=== PATIENT | male | born 1935 | race Caucasian/White ===

== ENCOUNTER 2021-01-31 11:21 | Emergency (ER) | payer MEDICARE, SELFPAY ==
[2021-01-31] VITALS (7 sets, daily range): BP systolic 113–139; BP diastolic 65–85; PULSE 55–80; RESP 12–19; TEMP 36.4–36.7; O2SAT 95–98
--- NOTE | ~2021-01-31 | CT_ITS ---
EXAMINATION: CT brain wo con EXAM DATE: 01/31/2021 12:03 INDICATION: Slurred speech, dysphagia, confusion. TECHNIQUE: Spiral CT of the head was performed without contrast. Axial, coronal and sagittal images were reviewed. The dose-length product (DLP) for this examination was 605.33 mGy-cm. The exposure w as tailored according to patient size, and iterative reconstruction (ASIR) was used as additional dos e reduction technique. There is no prior study for comparison. FINDINGS: There is hyperdense right MCA trifurcation (axial image 13). There is mild microangiopathy and cerebral atrophy. There is no acute intraparenchymal hemorrhage. No evidence of intraparenchymal brain mass lesion. Gibson-white differentiation preserved. There is no mass effect or midline shift. The ventricles are normal in size. There are no extra-axial collections. There are no acute calvari al fractures. Patient has had bilateral ocular lens surgery. Soft tissue is unremarkable. Some opac ity, layering debris within the right maxillary sinus. IMPRESSION: 1. Hyperdense right MCA trifurcation, possibly acutely thrombosed. 2. Mild senescent changes. 3. Some right maxillary sinus opacity. I discussed right MCA finding with Lauren Myers MD at 01/31/2021 12:10 CDT. Reviewed, dictated and finalized at location B.
--- NOTE | ~2021-01-31 | CT_ITS ---
EXAMINATION: CTA brain carotid EXAM DATE: 01/31/2021 13:29 INDICATION: Abnormal ct, hyperdense right MCA trifurcation. Speech impairment. Post TPA. TECHNIQUE: Spiral CTA of the carotid arteries was performed with intravenous injection 100 cc of Omni paque 350. Axial, coronal, sagittal reformatted images reviewed. Additional reformatted images creat ed on dedicated 3-D workstation. NASCET comparable standard used to assess the degree of arterial st enosis. Spiral CT angiogram cerebral arteries performed with the same intravenous injection of contr ast. Source images of the brain CTA transferred to dedicated workstation for 3-D rotational image cre ation. Coronal, sagittal maximum intensity pixel images also reviewed. The dose-length product (DLP ) for this examination was 985.35 mGy-cm. The exposure was tailored according to patient size, and iterative reconstruction (ASIR) was used as additional dose reduction technique. Correlation is made to noncontrast head CT 01/31/2021. FINDINGS: There is mild bilateral carotid bulb arterial sclerosis with 0% stenosis bilaterally. There is internal carotid artery tortuosity. Mild bilateral carotid siphon arterial sclerosis without sten osis. The vertebral arteries are codominant. The right middle cerebral artery trifurcation is widely patent, no evidence of thrombus suspected on head CT. There is no carotid or vertebral basilar arterial dissection or fibromuscular dysplasia. The re are no cerebral artery aneurysms. There is symmetric cerebral artery arborization. The sagittal, t ransverse and sigmoid sinuses enhance normally, no venous sinus thrombosis. Internal cerebral veins a lso enhance normally. Incidental Findings: There is mild to moderate right maxillary, mild left sphenoid debris. Small left maxillary sinus mucous retention cyst. Advanced cervical spondylosis. IMPRESSION: 1. No evidence of acute arterial thrombosis (reportedly patient post tPA). 2. Mild bilateral carotid bulb, siphon arterial sclerosis, 0% stenosis bilaterally. Reviewed, dictated and finalized at location B. IMPRESSION: 1. No evidence of acute arterial thrombosis (reportedly patient post tPA). 2. Mild bilateral carotid bulb, siphon arterial sclerosis, 0% stenosis bilater ally.
--- NOTE | 2021-01-31 11:31 | ECG_ITS ---
Measurements Intervals [place] Rate: 64 P: 30 [place]: 178 QRS: -1 QRSD: 84 T: 2 QT: 333 QTc: 345 Interpretive Statements SINUS RHYTHM ATRIAL PREMATURE COMPLEX LOW QRS VOLTAGE IN LIMB LEADS BORDERLINE T WAVE ABNORMALITY- INFERIOR LEADS BASELINE ARTIFACT- I, II, III, AVR, AVL, AVF, V1-V3 BORDERLINE ECG Electronically Signed On 01-31-2021 17:09:26 CDT by Johnie Fernandez D.O.
--- NOTE | 2021-01-31 11:49 | PC.NURSE ---
Blood glucose was 96 at 11:49
[2021-01-31 11:50] LABS: Glucose Point of Care 96 mg/dl (65-105)
--- NOTE | 2021-01-31 11:50 | PC.NURSE ---
Pt to CT scan via stretcher at this time.
[2021-01-31 12:01] LABS: Basophils Percent Auto 0.4 % (0.2-1.2); Eosinophils Absolute Auto 0.2 K/mm3 (0-0.3); Eosinophils Percent Auto 2.2 % (0-4.4); Hematocrit 41.5 % (42.0-52.0); Hemoglobin 13.3 g/dL (14.0-18.0); Immature Granulocyte Absolute 0.03 K/mm3 (0.00-0.031); Immature Granulocyte Percent A 0.4 % (0-0.5); Lymphocytes Absolute Auto 1.06 K/mm3 (0.9-3.2); Lymphocytes Percent Auto 15.4 % (18.3-44.2); Mean Corpuscular Hemoglobin 33.1 pg (26-34); Mean Corpuscular Volume 103.2 fl (80-100); Mean Platelet Volume 9.1 fl (7.4-10.4); Monocytes Absolute Auto 0.4 K/mm3 (0.1-0.6); Monocytes Percent Auto 6.1 % (2.6-8.5); Neutrophils Absolute Auto 5.2 K/mm3 (1.3-6.7); Neutrophils Percent Auto 75.5 % (45.5-73.1); Platelet Count Result 237 k/mm3 (150-375); Red Blood Count 4.02 M/mm3 (4.6-6.20); Red Cell Distribution Width 13.2 % (11.5-14.5); White Blood Count 6.9 K/mm3 (4.5-10.0)
[2021-01-31 12:09] LABS: Add Urine Microscopic? YES; Appearance Urine Cloudy (Clear); Bilirubin Urine Negative (Negative); Blood Urine Negative (Negative); Color Urine Yellow (Yellow); Glucose Urine UA Negative (Negative); Ketones Urine Negative (Negative); Leukocyte Esterase Ur 2+ LEU/UL (Negative); Nitrate Urine Negative (Negative); Protein Urine Negative (Negative); RBC Urine 0-2 /hpf (0-2); Specific Grav Ur 1.013 (1.001-1.035); Urobilinogen Urine Negative mg/dL (<2.0)
[2021-01-31 12:14] LABS: Alanine Aminotransferase 10 U/L (4-50); Alkaline Phosphatase 77 U/L (38-126); Anion Gap 5 mmol/L (8-16); Aspartate Amino Transferase 24 U/L (17-59); Bilirubin,Total 0.9 mg/dL (0.2-1.3); Blood Urea Nitrogen 12 mg/dL (9-20); Carbon Dioxide 28 mmol/L (22-30); Chloride 106 mmol/L (98-107); Estimated CRCL calculation 38 ml/min; Estimated Glomerular Filt Rate > 60; Glucose 106 mg/dL (75-110); Potassium 3.8 mmol/L (3.4-5.0); Sodium 139 mmol/L (137-145)
--- NOTE | 2021-01-31 12:32 | ED.GENADULT ---
HPI - General Adult General Chief complaint: Altered Mental Status Stated complaint: ALTERED MENTAL STATUS Time Seen by Provider: 01/31/21 11:36 Related Data Allergies Allergy/AdvReac Type Severity Reaction Status Date / Time No Known Allergies Allergy Unverified 01/31/21 12:36 [facility] Past Medical History Medical History Dementia Family History Family History Father Family history of malignant neoplasm Family history of respiratory disorder, Onset Age: 50 Patient's father is Mother Family history of transient ischemic attacks, Onset Age: 83 Family history of heart disease in male family member before age 55, Onset Age: 83 Patient's mother is Social History Social History Smoking status: Never smoker Alcohol intake: current Course Reevaluation(s) Reevaluation #1: Discussed with daughter about tPA. They agree to proceed. Date: 01/31/21 Time: 12:30 Consultations Consultation #1: Discussed with Dr. Child (neurology) at [place], who agrees to accept the patient for transfer. Date: 01/31/21 Time: 12:52 Vital Signs Vital signs: Vital Signs Temperature 36.4 C L 01/31/21 11:21 Pulse Rate 66 01/31/21 11:21 Respiratory Rate 12 01/31/21 11:21 Blood Pressure 135/68 01/31/21 11:21 Pulse Oximetry 96 01/31/21 11:21 Temperature 36.4 C L 01/31/21 11:21 Pulse Rate 66 01/31/21 11:50 Respiratory Rate 17 01/31/21 11:50 Blood Pressure 139/65 01/31/21 11:50 Pulse Oximetry 97 01/31/21 11:50 Medical Decision Making Vital Signs Vital Signs: Vital Signs Temperature 36.4 C L 01/31/21 11:21 Pulse Rate 66 01/31/21 11:21 Respiratory Rate 12 01/31/21 11:21 Blood Pressure 135/68 01/31/21 11:21 Pulse Oximetry 96 01/31/21 11:21 Temperature 36.4 C L 01/31/21 11:21 Pulse Rate 66 01/31/21 11:50 Respiratory Rate 17 01/31/21 11:50 Blood Pressure 139/65 01/31/21 11:50 Pulse Oximetry 97 01/31/21 11:50 Lab Data Result diagrams: 01/31/21 11:49 01/31/21 11:49 Labs: Lab Results 01/31/21 01/31/21 01/31/21 Range/Units 11:47 11:48 11:49 WBC 6.9 (4.5-10.0) K/mm3 RBC 4.02 L (4.6-6.20) M/mm3 Hgb 13.3 L (14.0-18.0) g/dL Hct 41.5 L (42.0-52.0) % MCV 103.2 H (80-100) fl MCH 33.1 (26-34) pg MCHC 32.0 (32-36) g/dl RDW 13.2 (11.5-14.5) % Plt Count 237 (150-375) k/mm3 MPV 9.1 (7.4-10.4) fl Immature Gran % (Auto) 0.4 (0-0.5) % Neut % (Auto) 75.5 H (45.5-73.1) % Lymph % (Auto) 15.4 L (18.3-44.2) % [place] % (Auto) 6.1 (2.6-8.5) % Eos % (Auto) 2.2 (0-4.4) % Baso % (Auto) 0.4 (0.2-1.2) % Lymph # (Auto) 1.06 (0.9-3.2) K/mm3 [place] # (Auto) 0.4 (0.1-0.6) K/mm3 Eos # (Auto) 0.2 (0-0.3) K/mm3 Baso # (Auto) 0.0 (0.0-0.1) K/mm3 Abs Immat Gran (auto) 0.03 (0.00-0.031) K/mm3 Absolute Neuts (auto) 5.2 (1.3-6.7) K/mm3 Absolute Nucleated RBC 0.0 (0.0-0.012) K/mm3 Nucleated RBC % 0.0 (0.0-0.2) % PT INR APTT Sodium (137-145) mmol/L Potassium (3.4-5.0) mmol/L Chloride (98-107) mmol/L Carbon Dioxide (22-30) mmol/L Anion Gap (8-16) mmol/L BUN (9-20) mg/dL Creatinine (0.7-1.3) mg/dL Estim Creat Clear Calc ml/min Estimated GFR (59 - ) Glucose (75-110) mg/dL POC Capillary Glucose 96 (65-105) mg/dl Calcium (8.4-10.2) mg/dL Total Bilirubin (0.2-1.3) mg/dL AST (17-59) U/L ALT (4-50) U/L Alkaline Phosphatase (38-126) U/L Total Protein (6.3-8.2) g/dL Albumin (3.5-5.1) g/dL Urine Color Yellow (Yellow) Urine Appearance Cloudy H (Clear) Urine pH 6.0 (5.0-9.0) Ur Specific [place] 1.013 (1.001-1.035) Urine Prote
--- NOTE | 2021-01-31 12:55 | ED.GENADULT ---
HPI - General Adult General Chief complaint: Altered Mental Status Stated complaint: ALTERED MENTAL STATUS Time Seen by Provider: 01/31/21 11:36 Source: patient History of Present Illness HPI narrative: Patient is a 85 y/o male brought in by EMS for altered mental status. states that patient got out of bed fine around 10:00 AM. Around 10:30 AM, when patient was walking to bathroom. He walked half way and just stood there, shaking instead of going further. She helped him to the bathroom, then he sat in the bathtub instead of the commode. There is no known alleviating or exacerbating factor. Patient has Dementia at baseline. However, states that he is normally able to walk independently and carry on a conversation. He seems more confused after this. Related Data Allergies Allergy/AdvReac Type Severity Reaction Status Date / Time No Known Allergies Allergy Unverified 01/31/21 12:36 Review of Systems Review of Systems: ROS unobtainable: Yes unobtainable due to mental status PMFSH Past Medical History Medical History (Updated 01/31/21 @ 17:34 by Lauren Myers MD) Dementia Family History Family History Father Family history of malignant neoplasm Family history of respiratory disorder, Onset Age: 50 Patient's father is Mother Family history of transient ischemic attacks, Onset Age: 83 Family history of heart disease in male family member before age 55, Onset Age: 83 Patient's mother is Social History Social History Smoking status: Never smoker Alcohol intake: current Exam Const: General: no acute distress and well developed Orientation/consciousness: confusion HENMT: Head: normocephalic Ears: external ears normal General nose exam: Normal external nose present Eyes: General: appearance normal, both eyes and all related structures Conjunctivae: conjunctivae normal Neck: Neck: normal visual inspection and full ROM Chest: Chest palpation & inspection: normal inspection of the chest and no tenderness Resp: Effort & Inspection: normal respiratory effort Auscultation: clear to auscultation bilaterally Cardio: Rate: regular rate Rhythm: regular rhythm GI: GI Palp: No abdominal tenderness and Yes Soft to palpation Skin: General skin exam: normal color and turgor normal Neuro: General: confusion Cognition (Neuro): abnormal cognition Motor exam (neuro): Other motor observations present (left leg appears weaker than right leg) Extrem: General: normal to inspection, full ROM and no pedal edema Psych: Appearance: grossly normal Mental Status: mental status grossly normal Affect: normal affect Course Reevaluation(s) Reevaluation #1: Rechecked. Patient is able to move left leg better. It seems that he has almost equal strength in his left leg as the right leg. Date: 01/31/21 Time: 13:58 Vital Signs Vital signs: Vital Signs Temperature 36.4 C L 01/31/21 11:21 Pulse Rate 66 01/31/21 11:21 Respiratory Rate 12 01/31/21 11:21 Blood Pressure 135/68 01/31/21 11:21 Pulse Oximetry 96 01/31/21 11:21 Temperature 36.7 C 01/31/21 15:32 Pulse Rate 63 01/31/21 15:32 Respiratory Rate 17 01/31/21 15:32 Blood Pressure 113/81 01/31/21 15:32 Pulse Oximetry 98 01/31/21 15:32 Medical Decision Making Vital Signs Vital Signs: Vital Signs Temperature 36.4 C L 01/31/21 11:21 Pulse Rate 66 01/31/21 11:21 Respiratory Rate 12 01/31/21 11:21 Blood Pressure 135/68 01/31/21 11:21 Pulse Oximetry 96 01/31/21 11:21 Temperature 36.7 C 01/31/21 15:32 Pulse Rate 63 01/31/21 15:32 Respiratory Rate 17 01/31/21 15:32 Blood Pressure 113/81 01/31/21 15:32 Pulse Oximetry 98 01/31/21 15:32 Lab Data Result diagrams: 01/31/21 11:49 01/31/21 11:49 Labs: Lab Results
[2021-01-31 13:00] LABS: Prothrombin Time 12.8 Seconds (11.1-14.7)
[2021-01-31 13:01] LABS: Partial Thromboplastin Time 26.9 SECONDS (22.3-36.8)
--- NOTE | 2021-01-31 13:15 | PC.NURSE ---
Pt to CT scan at this time, pt is on tele monitor.
--- NOTE | 2021-01-31 14:10 | PC.NURSE ---
Spoke w/ Stormy at [facility] and answered questions regarding pt. Face sheet faxed to [phone] per [facility] request. Faxed at this time.
[2021-01-31 14:19] LABS: Troponin I < 0.012 ng/mL (0.000-0.034)
--- NOTE | 2021-01-31 15:26 | PC.NURSE ---
[facility] accepted transfer to [facility] 30min Trip#[phone]
== END 2021-01-31 16:21 | disposition short-term general hospital (02) ==
LOC: ANHED 11:56
PROVIDERS: Emergency Medicine; Emergency Provider Emergency Medicine; PCP Emergency Medicine
DX: I63.9 Cerebral infarction, unspecified (principal); R41.82 Altered mental status, unspecified; F03.90 Unspecified dementia, unspecified severity, without behavioral disturbance, psychotic disturbance, mood disturbance, and anxiety; R29.706 NIHSS score 6; I49.1 Atrial premature depolarization; R94.31 Abnormal electrocardiogram [ECG] [EKG]
CPT/HCPCS: 36415; 37195; 51701; 70450; 70496; 70498; 80053; 81001; 82948; 84484; 85025; 85610; 85730; 87086; 93005; 99285; J2997; Q9967

== ENCOUNTER 2021-04-06 20:48 | Inpatient (IN) | payer MEDICARE, SELFPAY ==
--- NOTE | ~2021-04-06 | XR_ITS ---
EXAMINATION: XR chest 1V portable EXAM DATE: 04/09/2021 09:04 INDICATION: Pneumonia. TECHNIQUE: Portable AP frontal chest x-ray was obtained. There is no prior study for comparison. FINDINGS: Skin fold overlying left hemithorax. Small amount of bibasilar opacity most consistent with atelectasis The lungs are otherwise clear. There are no pleural effusions. The cardiomediastinal s ilhouette is within normal limits. There is no pneumothorax suspected. The bones are osteopenic. T here are bony degenerative changes. IMPRESSION: Subsegmental bibasilar opacities most consistent with atelectasis. Reviewed, dictated and finalized at location A.
--- NOTE | ~2021-04-06 | CT_ITS ---
EXAMINATION: CT abdomen pelvis w con DATE: 04/06/2021 22:53 INDICATION: Hematemesis TECHNIQUE: Computed tomography (CT) of the abdomen and pelvis was performed with 100 cc Omnipaque 350 intravenous contrast. The dose-length product was 287.41 mGy-cm. Automated exposure control and iter ative reconstruction technique were employed. COMPARISON: None. FINDINGS: There is right lower lobe consolidation, most likely atelectasis. There is right lower lobe bronchiectasis. Borderline heart size. No significant pleural or pericardial effusion. Severely dila thomas colon with large amount of retained fecal material in the distal colon. There is a severely enlar ged prostate gland causing mass effect on the rectum. Distal colonic mass cannot be excluded. There i s abnormal thickening at the gastroesophageal junction. Fatty infiltration of the liver. The spleen, pancreas, adrenal glands and left kidney are unremarkabl e. There is right renal cyst. Gallbladder is present. There is atherosclerosis. There is diffuse blad baldo wall thickening. There is near complete loss of joint space in the right hip with remodeling of t he right femoral head. There is dextroscoliosis of the lumbar spine with severe lumbar spondylosis. 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 IMPRESSION: 1. Severely dilated colon with large amount of retained fecal material in the distal colon. There is transition in the rectum with mass effect by an enlarged prostate gland. Cannot exclude distal coloni c mass. Recommend GI consultation. 2: Severely enlarged prostate gland with heterogeneous enhancement. Cannot exclude prostate cancer. 3: Diffuse bladder wall thickening, likely due to outlet obstruction. 4: Right lower lobe airspace consolidation may represent atelectasis or pneumonia. 5: Abnormal thickening of the gastroesophageal junction, which may be slightly due to infectious/inf lammatory change, although malignancy cannot be excluded. Reviewed, dictated and finalized at location A. IMPRESSION: 1. Severely dilated colon with large amount of retained fecal material in the d istal colon. There is transition in the rectum with mass effect by an enlarged prostate gland. Cannot exclude distal colonic mass. Recommend GI consultation. 2: Severely enlarged prostate gland with heterogeneous enhancement. Cannot excl ude prostate cancer. 3: Diffuse bladder wall thickening, likely due to outlet obstruction. 4: Right lower lobe airspace consolidation may represent atelectasis or pneumon ia. 5: Abnormal thickening of the gastroesophageal junction, which may be slightly due to infectious/inflammatory change, although malignancy cannot be excluded.
--- NOTE | ~2021-04-06 | XR_ITS ---
XR abdomen NG/feed tube insert INDICATION: Evaluate NG tube position. TECHNIQUE: Limited KUB perform for evaluating NG tube . COMPARISON: CT dated 04/06/2021 FINDINGS: NG tube tip in the stomach. There is severely dilated colon with large amount of fecal mate rial in the visualized left colon. IMPRESSION: 1: NG tube tip in the stomach. Reviewed, dictated and finalized at location A.
--- NOTE | ~2021-04-06 | XR_ITS ---
EXAMINATION: XR barium swallow modified EXAM DATE: 04/09/2021 12:34 INDICATION: Pneumonia. TECHNIQUE: Modified barium esophagram was performed by speech pathologist with radiologist Dr. Eddie Monzon present to administered fluoroscopy. Speech pathologist administered barium in varying consis tencies as per speech pathologist documentation. This was recorded on tape. There was total fluorosc opic time of 0.8. The DAP for this procedure was 1.3 Gycm2. A total of 3 images sent to PACS from t exam. FINDINGS: Oral stage: Delayed swallow. Pharyngeal phase: Adequate function. Laryngeal penetration: None. Aspiration: None. Laryngeal sensitivity: Present. IMPRESSION: Patient tolerated oral feedings in the upright position. Please refer to speech patholo gist findings and specific feeding recommendations. Reviewed, dictated and finalized at location A. IMPRESSION: Patient tolerated oral feedings in the upright position. Please r efer to speech pathologist findings and specific feeding recommendations.
[2021-04-06 20:56] VITALS: BP 86/60; PULSE 58; RESP 15; TEMP 36.3; O2SAT 98
--- NOTE | 2021-04-06 21:07 | ECG_ITS ---
Measurements Intervals [place] Rate: 83 P: 12 [place]: 152 QRS: 19 QRSD: 90 T: 32 QT: 342 QTc: 403 Interpretive Statements SINUS RHYTHM ATRIAL PREMATURE COMPLEXES LOW QRS VOLTAGE IN LIMB LEADS BORDERLINE R WAVE PROGRESSION, ANTERIOR LEADS BORDERLINE T WAVE ABNORMALITY- INFERIOR LEADS BASELINE ARTIFACT- I, II, III, AVF, V1, V3-V6 BORDERLINE ECG Electronically Signed On 04-10-2021 11:25:38 CDT by Johnie Fernandez D.O.
[2021-04-06 21:27] LABS: Basophils Absolute Auto 0.1 K/mm3 (0.0-0.1); Basophils Percent Auto 0.3 % (0.2-1.2); Eosinophils Percent Auto 0.1 % (0-4.4); Hematocrit 36.5 % (42.0-52.0); Hemoglobin 11.8 g/dL (14.0-18.0); Immature Granulocyte Absolute 0.13 K/mm3 (0.00-0.031); Immature Granulocyte Percent A 0.7 % (0-0.5); Lymphocytes Absolute Auto 3.03 K/mm3 (0.9-3.2); Lymphocytes Percent Auto 17.1 % (18.3-44.2); Mean Corpuscular HGB Conc 32.3 g/dl (32-36); Mean Corpuscular Volume 105.2 fl (80-100); Monocytes Percent Auto 5.8 % (2.6-8.5); Neutrophils Absolute Auto 13.5 K/mm3 (1.3-6.7); Platelet Count Result 326 k/mm3 (150-375); Red Blood Count 3.47 M/mm3 (4.6-6.20); Red Cell Distribution Width 13.6 % (11.5-14.5); White Blood Count 17.7 K/mm3 (4.5-10.0)
[2021-04-06 21:37] LABS: Partial Thromboplastin Time 25.8 SECONDS (22.3-36.8); Prothrombin Time 12.9 Seconds (11.1-14.7)
[2021-04-06 21:38] LABS: Alanine Aminotransferase 14 U/L (4-50); Alkaline Phosphatase 71 U/L (38-126); Anion Gap 9 mmol/L (8-16); Aspartate Amino Transferase 28 U/L (17-59); Bilirubin,Total 0.4 mg/dL (0.2-1.3); Blood Urea Nitrogen 36 mg/dL (9-20); Carbon Dioxide 20 mmol/L (22-30); Chloride 109 mmol/L (98-107); Estimated CRCL calculation 31 ml/min; Estimated Glomerular Filt Rate > 60; Glucose 132 mg/dL (65-110); Sodium 138 mmol/L (137-145)
--- NOTE | 2021-04-06 21:47 | ED.GIBLEED ---
HPI - GI Bleed General Chief complaint: GI Bleed Stated complaint: throwing up blood Time Seen by Provider: 04/06/21 21:20 Source: family History of Present Illness HPI Narrative: Patient presents with vomiting blood. Reports patient has had decreased p.o. intake for the past few days and today appeared more tired than they were putting him to bed to rest was not any and bright red emesis. Family is concerned because the medicine brought him in for evaluation. Patient has no complaints at this time he denies any focal areas of pain or discomfort. Reports patient has chronic diarrhea and his stool is normal for him. Related Data Allergies Allergy/AdvReac Type Severity Reaction Status Date / Time No Known Allergies Allergy Verified 04/06/21 21:10 Review of Systems Review of Systems: CONSTITUTIONAL: Denies fever, chills, or sweats. EYES: Denies visual changes, redness, or discharge. ENT: Denies rhinorrhea, congestion, sore throat, or otalgia. CARDIOVASCULAR: Denies chest pain, palpitations, or edema. RESPIRATORY: Denies cough or dyspnea. GASTROINTESTINAL: Denies abdominal pain, nausea, vomiting, or diarrhea. GENITOURINARY: Denies dysuria or hematuria. SKIN: Denies rash or itching. MUSCULOSKELETAL: Denies back pain, joint pain, or myalgia. NEUROLOGIC: Denies headache, numbness, dizziness, or weakness. PSYCHIATRIC: Denies anxiety or depression. All systems reviewed & are unremarkable except as noted in HPI and below PMFSH Past Medical History Medical History (Updated 04/07/21 @ 01:25 by Chilango Sherman MD) Dementia Family History Family History Father Family history of malignant neoplasm Family history of respiratory disorder, Onset Age: 50 Patient's father is Mother Family history of transient ischemic attacks, Onset Age: 83 Family history of heart disease in male family member before age 55, Onset Age: 83 Patient's mother is Social History Social History Smoking status: Never smoker Alcohol intake: current Exam Narrative: GENERAL: Well-appearing, well-nourished, and in no acute distress. HEAD: Normocephalic, atraumatic. EYES: PERRLA and EOMI. ENT: Nares clear, no rhinorrhea or epistaxis. Mucous membranes moist. NECK: Supple. No masses. No JVD CHEST: Clear to auscultation. No respiratory distress. No wheezes rales or rhonchi HEART: Regular rate and rhythm. No murmur heard. Normal peripheral pulses. ABDOMEN: Soft, nontender, nondistended, normal active bowel sounds. EXTREMITIES: Normal range of motion. No edema. SKIN: Warm, dry, no rash. NEURO: No focal deficits. Alert and oriented x3. PSYCH: Normal mood and affect. Course Vital Signs Vital signs: Vital Signs Temperature 36.3 C L 04/06/21 20:56 Pulse Rate 58 L 04/06/21 20:56 Respiratory Rate 15 04/06/21 20:56 Blood Pressure 86/60 L 04/06/21 20:56 Pulse Oximetry 98 04/06/21 20:56 Temperature 36.3 C L 04/06/21 20:56 Pulse Rate 105 H 04/07/21 00:50 Respiratory Rate 15 04/07/21 00:50 Blood Pressure 125/98 H 04/07/21 00:50 Pulse Oximetry 100 04/07/21 00:50 MDM - GI Bleed MDM Narrative Medical decision making narrative: Patient was brought in for hematemesis patient's initial blood pressure was 86/60 however improved without intervention. Patient overall looks clinically well labs and imaging obtained patient multiple significant CT findings. Labs were with a stable anemia. Given hematemesis report NG was placed patient started on Protonix and octreotide and admitted for further management. Case discussed with GI who will follow along. Patient was admitted to the hospitalist team. Patient did have a prior history of colon cancer status post resection and gastric ulcer. There is no significant alcohol history. Lab Data Result diagrams: 04/06/21 21:19
[2021-04-06 22:24] VITALS: BP 109/71; PULSE 96; RESP 17; O2SAT 96
[2021-04-06] MEDS: OCTREOTIDE ACETATE 50 MCG/ML VIAL IV PUSH (22:28)
[2021-04-06] MEDS: SODIUM CHLORIDE 0.9% IV 2,000 ML 999 ML IV CONT (22:28)
[2021-04-06] MEDS: ONDANSETRON INJ 4 MG/2 ML VIAL IV PUSH (22:29)
[2021-04-06] MEDS: PANTOPRAZOLE SODIUM IV 40 MG VIAL IV PUSH (22:29)
[2021-04-06 23:20] VITALS: BP 108/87; PULSE 84; RESP 12; O2SAT 100
[2021-04-07] VITALS (20 sets, daily range): BP systolic 92–150; BP diastolic 50–100; PULSE 77–144; RESP 15–22; TEMP 36.1–36.7; O2SAT 90–100; BMI 16.4
--- NOTE | 2021-04-07 01:23 | PM.IMHP ---
H&P: HPI History of Present Illness Date/Time: 04/07/21 01:23 Chief Complaint: hematemesis Narrative: This is a 85 yo male who presents to [facility] ED with throwing up of blood last evening. he is accompanied by his family from whom most of hte history was taken. he had beeen having decreased po intake since past few days and was feeling tired. he was put to bed where he threw up bright red emesis without any alarm symptoms. he has not had any bleeding since then. he denies any abdominal pain, nausea. he was not vomiting or feeling nauseaus earlier yesterday. he reports in january 2021 he presented to the ED with stroke like symptoms,he received tpa and was transferred to [place]. He was planned to be evaluate with MRI but did not hapen. he was discahrged. it was considered that his symptoms could be related to his underlying parkinson 's disease. he was discharged on no antiplatelet therapy. he subsequently was evaluated few weeks later at [facility] with MRI brain, done as an op basis, which revealed no acute or subacute findings of stroke and was told that he likely did not have stroke in january 2021. however it showed findings of old /previous strokes from remote past. in consideration to this, he has recently been placed on aspirin and plavix which he has been taking since past 10 days now. his family does reprot histoyr of bleeding ulcer with similar episode several years back. no furtther episodes since then. he is a poor historian and demented at baseline. in Ed evaluation, his vitals were stable, h and h was 11. no further bleeding. ng was placed in the ED. CT abdomen revealed multiple different findings: 1. Severely dilated colon with large amount of retained fecal material in the distal colon. There is transition in the rectum with mass effect by an enlarged prostate gland. Cannot exclude distal colonic mass. Recommend GI consultation. 2: Severely enlarged prostate gland with heterogeneous enhancement. Cannot exclude prostate cancer. 3: Diffuse bladder wall thickening, likely due to outlet obstruction. 4: Right lower lobe airspace consolidation may represent atelectasis or pneumonia. 5: Abnormal thickening of the gastroesophageal junction, which may be slightly due to infectious/inflammatory change, although malignancy cannot be excluded. he is startted on octreotide and pantprazole gtt. there is no hisotry of alcohol use in the past. he is admitted for further evaluation and managment. Review of Systems Review of Systems: ROS unobtainable: Yes unobtainable due to medical condition and unobtainable due to mental status PMFSH Past Medical History Medical History (Updated 04/07/21 @ 02:48 by Chilango Sherman MD) Dementia Family History Family History Father Family history of malignant neoplasm Family history of respiratory disorder, Onset Age: 50 Patient's father is Mother Family history of transient ischemic attacks, Onset Age: 83 Family history of heart disease in male family member before age 55, Onset Age: 83 Patient's mother is Social History Social History Smoking status: Never smoker Alcohol intake: current Meds Home Medications and Allergies Home Medications Medication Instructions Recorded Confirmed Type donepezil 10 mg tablet See Rx Instructions .ROUTE 05/17/20 03/25/21 Rx .COMPLEX #90 tablet memantine 10 mg tablet See Rx Instructions .ROUTE 05/17/20 03/25/21 Rx .COMPLEX #180 tablet atorvastatin 10 mg tablet 10 mg PO DAILY #90 tablet 03/21/21 03/25/21 Rx clopidogrel 75 mg tablet 75 mg PO DAILY #90 tablet 03/21/21 03/25/21 Rx Allergies Allergy/AdvReac Type Severity Reaction Status Date / Time No Known Allergies Allergy Verified 04/06/21 21:10 Vital Signs Vital Signs - 24 hr 04/06/21 20:56 04/06/21 22:24 04/06/21 23:20 Marlen
--- NOTE | 2021-04-07 02:54 | PC.NURSE ---
This patient, Regan Croft, was admitted to IMU Room 204-01. Patient/family oriented to hospital policies and general routines including ID bracelet, bed and alarms, visiting hours, pain management, procedures, bathroom and other care routines, personal items, smoking policy, room service/diet, and visiting hours. Information on how to activate the Rapid Response Team has been discussed. Patient/Family are encouraged to report perceived risks to care and to ask questions if they do not understand what they are told or what they should do.
[2021-04-07 03:22] LABS: Add Urine Microscopic? YES; Appearance Urine Turbid (Clear); Bilirubin Urine Negative (Negative); Blood Urine 2+ (Negative); Color Urine Amber (Yellow); Glucose Urine UA Negative (Negative); Ketones Urine Negative (Negative); Leukocyte Esterase Ur 3+ LEU/UL (Negative); Nitrate Urine Negative (Negative); Protein Urine 2+ mg/dL (Negative); RBC Urine >75 /hpf (0-2); Urobilinogen Urine Negative mg/dL (<2.0); WBC Clumps Urine Present /HPF; WBC Urine >75 /hpf
[2021-04-07 05:12] LABS: Hematocrit 25.3 % (42.0-52.0); Hemoglobin 8.1 g/dL (14.0-18.0)
[2021-04-07 05:58] LABS: Carcinoembryonic Antigen 21.2 ng/mL (0.0-3.0)
--- NOTE | 2021-04-07 06:35 | WPDGICN ---
Assessment and Plan Assessment and plan (1) Hematemesis: Qualifiers: Nausea presence: with nausea Qualified Code(s): K92.0 - Hematemesis Code(s): K92.0 - Hematemesis Status: Acute Assessment and Plan: I suspect peptic ulcer disease. There is no history to suggest varices although that is certainly a possibility. We will not attempt to replace the nasogastric tube. He will have EGD later this morning (2) Colon distention: Code(s): K63.89 - Other specified diseases of intestine Status: Acute Assessment and Plan: it seems that his colon has been distended for many years but the CT scan is worrisome for possible rectal mass. He will have a flexible sigmoidoscopy this morning (3) Leukocytosis: Qualifiers: Leukocytosis type: unspecified Qualified Code(s): D72.829 - Elevated white blood cell count, unspecified Code(s): D72.829 - Elevated white blood cell count, unspecified Status: Acute Assessment and Plan: etiology for this is unknown although he is on Zosyn which should cover most issues (4) Memory loss: Code(s): R41.3 - Other amnesia Status: Acute Assessment and Plan: his dementia precludes getting any reliable firsthand history from him GI Consult Note Consult date/time: 04/07/21 06:35 HPI: Regan Croft is a 85 year old male Who presented to the emergency room last evening with hematemesis he apparently vomited bright red blood once at home. An nasogastric tube was inserted in the emergency room and bright red blood has been coming out of that as well. He was started on Protonix drip and an octreotide drip. A few hours ago the patient removed his NG tube. He is confused. He cannot give me any reliable history but he does deny pain. The history from the emergency room which she obtained from the family was that this man had colon cancer 40 years ago apparently resected. I see that he had a colonoscopy about 10 years ago showing a large dilated colon and apparently he had a bleeding ulcer a few years ago. He had a questionable stroke earlier this year. He was transferred to another hospital and ultimately had an MRI which did not reveal acute stroke however he has been started on aspirin and Plavix a couple of weeks ago. There was no history given of any liver disease or alcohol abuse. It is known that he has had a chronically large prostate. I See that in records from [address] scan shows dilated colon with apparent obstructing lesion in the rectum, possibly the prostate itself. Review of Systems Review of Systems: All systems reviewed & are unremarkable except as noted in HPI and below Constitutional: Comments: Because of his confusion I am not able to obtain any direct review of systems from him PMFSH Past Medical History Medical History Dementia Family History Family History Father Family history of malignant neoplasm Family history of respiratory disorder, Onset Age: 50 Patient's father is Mother Family history of transient ischemic attacks, Onset Age: 83 Family history of heart disease in male family member before age 55, Onset Age: 83 Patient's mother is Social History Social History Smoking status: Never smoker Alcohol intake: never Substance use: never Spiritual care concerns: No Meds Home Medications and Allergies Home Medications Medication Instructions Recorded Confirmed Type atorvastatin 10 mg tablet 10 mg PO DAILY #90 tablet 03/21/21 04/07/21 Rx clopidogrel 75 mg tablet 75 mg PO DAILY #90 tablet 03/21/21 04/07/21 Rx donepezil 10 mg PO QPM 04/07/21 04/07/21 History memantine 10 mg PO BID 04/07/21 04/07/21 History Allergies Allergy/AdvReac Type Severity React
[2021-04-07 09:23] LABS: Hemoglobin 7.2 g/dL (14.0-18.0)
[2021-04-07] MEDS: LACTATED RINGERS 1,000 ML 150 ML IV CONT (11:21)
--- NOTE | 2021-04-07 11:26 | WPDANESEPPF ---
Anes - Initial Pre Proc Eval Procedure: Operation Date: 04/07/21 11:45 Proposed Procedures p Esophagogastroduodenoscopy - Juan M Frankel MD s Flexible Sigmoidoscopy - Juan M Frankel MD Date/Time: 04/07/21 11:26 Surgeon: Chilango Sherman MD Pre Op Diagnosis: Hematemesis Patient Data Age: 85 Gender: M Height: 1.73 m Weight: 49 kg Last Vital Signs Temp 36.1 C L 04/07/21 11:18 Pulse 113 H 04/07/21 11:18 Resp 20 04/07/21 11:18 BP 92/68 L 04/07/21 11:18 Pulse Ox 90 04/07/21 11:18 Allergies Allergy/AdvReac Type Severity Reaction Status Date / Time No Known Allergies Allergy Verified 04/07/21 11:17 Home Medications Medication Instructions Recorded Confirmed Type atorvastatin 10 mg tablet 10 mg PO DAILY #90 tablet 03/21/21 04/07/21 Rx clopidogrel 75 mg tablet 75 mg PO DAILY #90 tablet 03/21/21 04/07/21 Rx donepezil 10 mg PO QPM 04/07/21 04/07/21 History memantine 10 mg PO BID 04/07/21 04/07/21 History Laboratory Tests 04/06/21 04/06/21 04/06/21 21:19 21:19 21:19 WBC 17.7 K/mm3 H K/mm3 (4.5-10.0) RBC 3.47 M/mm3 L M/mm3 (4.6-6.20) Hgb 11.8 g/dL L g/dL (14.0-18.0) Hct 36.5 % L % (42.0-52.0) MCV 105.2 fl H fl (80-100) MCH 34.0 pg pg (26-34) MCHC 32.3 g/dl g/dl (32-36) RDW 13.6 % % (11.5-14.5) Plt Count 326 k/mm3 k/mm3 (150-375) MPV 10.0 fl fl (7.4-10.4) Immature Gran % (Auto) 0.7 % H % (0-0.5) Neut % (Auto) 76.0 % H % (45.5-73.1) Lymph % (Auto) 17.1 % L % (18.3-44.2) [place] % (Auto) 5.8 % % (2.6-8.5) Eos % (Auto) 0.1 % % (0-4.4) Baso % (Auto) 0.3 % % (0.2-1.2) Lymph # (Auto) 3.03 K/mm3 K/mm3 (0.9-3.2) [place] # (Auto) 1.0 K/mm3 H K/mm3 (0.1-0.6) Eos # (Auto) 0.0 K/mm3 K/mm3 (0-0.3) Baso # (Auto) 0.1 K/mm3 K/mm3 (0.0-0.1) Abs Immat Gran (auto) 0.13 K/mm3 H K/mm3 (0.00-0.031) Absolute Neuts (auto) 13.5 K/mm3 H K/mm3 (1.3-6.7) Absolute Nucleated RBC 0.0 K/mm3 K/mm3 (0.0-0.012) Nucleated RBC % 0.0 % % (0.0-0.2) PT 12.9 Seconds Seconds (11.1-14.7) INR 1.0 APTT 25.8 SECONDS SECONDS (22.3-36.8) Sodium 138 mmol/L mmol/L (137-145) Potassium 4.0 mmol/L mmol/L (3.4-5.0) Chloride 109 mmol/L H mmol/L (98-107) Carbon Dioxide 20 mmol/L L mmol/L (22-30) Anion Gap 9 mmol/L mmol/L (8-16) BUN 36 mg/dL H D mg/dL (9-20) Creatinine 1.10 mg/dL mg/dL (0.7-1.3) Estim Creat Clear Calc 31 ml/min ml/min Estimated GFR > 60 (59 - ) Glucose 132 mg/dL H mg/dL (65-110) Calcium 9.0 mg/dL mg/dL (8.4-10.2) Total Bilirubin 0.4 mg/dL mg/dL (0.2-1.3) AST 28 U/L U/L (17-59) ALT 14 U/L U/L (4-50) Alkaline Phosphatase 71 U/L U/L (38-126) Total Protein 6.0 g/dL L g/dL (6.3-8.2) Albumin 3.0 g/dL L g/dL (3.5-5.1) Carcinoembryonic Ag Free PSA % Free PSA Total PSA Urine Color Urine Appearance Urine pH Ur Specific [place] Urine Protein Urine Glucose (UA) Urine Ketones Ur Blood (Man) Urine Nitrate Urine Bilirubin Urine Urobilinogen Leukocyte Esterase Rfl Urine RBC Urine WBC Urine WBC Clumps Blood Type Antibody Screen 04/06/21 04/07/21 04/07/21 21:19 02:28 04:35 WBC RBC Hgb 8.1 g/dL L D g/dL (14.0-18.0) Hct 25.3 % L % (42.0-52.0) MCV MCH MCHC RDW Plt Count
[2021-04-07 14:44] LABS: Hematocrit 22.7 % (42.0-52.0); Hemoglobin 7.2 g/dL (14.0-18.0)
[2021-04-07] MEDS: TUBING, BLOOD PLUM PUMP TUBING 1 EACH XX (21:28)
[2021-04-07] MEDS: SODIUM CHLORIDE 0.9% IV 250 ML 30 ML IV CONT (21:28)
[2021-04-08] VITALS (13 sets, daily range): BP systolic 97–112; BP diastolic 44–65; PULSE 84–121; RESP 14–21; TEMP 36–36.8; O2SAT 93–100
[2021-04-08 05:11] LABS: Hematocrit 20.2 % (42.0-52.0); Hemoglobin 6.5 g/dL (14.0-18.0)
[2021-04-08] MEDS: TUBING, BLOOD PLUM PUMP TUBING 1 EACH XX (05:56)
[2021-04-08] MEDS: SODIUM CHLORIDE 0.9% IV 250 ML 30 ML IV CONT (05:56)
[2021-04-08] MEDS: ATORVASTATIN 10 MG TABLET PO (08:36)
[2021-04-08] MEDS: MEMANTINE 10 MG TABLET PO ×2 (08:36→16:23)
[2021-04-08] MEDS: PANTOPRAZOLE SODIUM IV 40 MG VIAL IV PUSH ×2 (08:37→21:00)
--- NOTE | 2021-04-08 09:05 | WPDGIPROGNO ---
Progress Note: A&P Assessment and Plan (1) Colon distention: Code(s): K63.89 - Other specified diseases of intestine Status: Acute Assessment and Plan: looking at past reports, this is a chronic problem along with chronic constipation. Sigmoidoscopy did not reveal any rectal mass or obstructing process other than the large prostate (2) GI bleed: Code(s): K92.2 - Gastrointestinal hemorrhage, unspecified Status: Acute Assessment and Plan: no evidence of new bleeding since cauterizing gastric AVMs. He received 1 unit of blood. I inadvertently ordered unit a little earlier not knowing when had been given. We will transfuse him if his hemoglobin drops below 7. (3) Pneumonia: Code(s): J18.9 - Pneumonia, unspecified organism Status: Acute Assessment and Plan: He is on antibiotics and vital signs are stable Subjective Date/time seen: 04/08/21 09:05 the staff states that he has had no further bloody stools since yesterday. He has just received 1 unit of packed red blood cells because of a drop in his hemoglobin. He has had no complaints Review of Systems Constitutional: Constitutional: Reports no additional constitutional complaints Comments: because of his mental status he does not give specific answers except he denies pain Exam Const: General: no acute distress Nutritional Appearance: thin Orientation/consciousness: confusion GI: GI Palp: No abdominal tenderness, Yes Soft to palpation and Yes No hepatosplenomegaly present Auscultation: normal bowel sounds Objective Data Vital Signs Vital Signs: Vital Signs - 24 hr 04/07/21 10:00 04/07/21 11:18 04/07/21 12:42 Temperature 36.1 C L Pulse Rate 101 H 113 H 113 H Respiratory Rate 20 18 Blood Pressure 92/68 L 121/87 Pulse Oximetry 90 90 04/07/21 12:52 04/07/21 14:00 04/07/21 16:30 Temperature 36.4 C Pulse Rate 103 H 108 H 98 Respiratory Rate 18 18 Blood Pressure 150/100 H 112/56 L Pulse Oximetry 97 100 04/07/21 20:00 04/07/21 22:00 04/07/21 22:16 Temperature 36.1 C L 36.6 C Pulse Rate 144 H 108 H 118 H Respiratory Rate 18 20 Blood Pressure 96/50 L 98/52 L Pulse Oximetry 93 92 04/07/21 22:34 04/07/21 23:34 04/07/21 23:50 Temperature 36.7 C 36.6 C 36.5 C Pulse Rate 116 H 103 H 112 H Respiratory Rate 20 22 H 18 Blood Pressure 99/55 L 99/62 L 92/65 L Pulse Oximetry 100 100 95 04/08/21 00:00 04/08/21 02:00 04/08/21 02:17 Temperature Pulse Rate 108 H 100 Respiratory Rate Blood Pressure Pulse Oximetry 93 04/08/21 04:00 04/08/21 06:00 04/08/21 06:23 Temperature 36.1 C L 36.5 C Pulse Rate 100 96 121 H Respiratory Rate 18 18 Blood Pressure 98/46 L 110/44 L Pulse Oximetry 100 100 04/08/21 06:39 04/08/21 08:00 Temperature 36.6 C Pulse Rate 96 Respiratory Rate 14 Blood Pressure 98/59 L Pulse Oximetry 99 99 Intake/Output Intake/Output: Intake & Output 04/05/21 04/06/21 04/07/21 04/08/21 23:59 23:59 23:59 23:59 Intake Total 3030 400 Output Total 0 505 500 Balance 0 2525 -100 Meds/Results Medications: Active Medications Generic Name Dose Route Start Last Admin Trade Name Freq PRN Reason Stop Dose Admin Atorvastatin Calcium 10 mg 04/08/21 09:00 04/08/21 08:36 Atorvastatin 10 Mg Tablet PO 10 mg DAILY MARILYNN Administration Donepezil HCl 10 mg 04/08/21 18:00 Donepezil Hcl 10 Mg Tablet PO QPM MARILYNN Piperacillin Sod/Tazobactam Sod 2.25 gm in 50 mls @ 100 mls/hr 04/07/21 06:00 04/08/21 08:37 Zosyn 2.25 Gm/D5w 50 Ml IVPB Infused Q6HR MARILYNN Infusion Sodium Chloride 250 mls @ 30 mls/hr 04/08/21 05:18 04/08/21 05:56 Normal Saline Iv IV CONT 04/08/21 13:37 30 mls/hr .Q8H20M STA Administration Sodium Chloride 250 mls @ 30 mls/hr 04/08/21 08:00 Normal Saline Iv IV CONT 04/08/21 16:19 .Q8H20M STA Memantine 10 mg 04/08/21 09:00 04/08/21 08:36 Memantine 10 Mg Tablet PO 10 mg
[2021-04-08 09:26] LABS: Hematocrit 24.9 % (42.0-52.0); Hemoglobin 8.1 g/dL (14.0-18.0)
--- NOTE | 2021-04-08 11:21 | PM.IMPN ---
Progress Note: A&P Assessment and Plan (1) Hematemesis: Qualifiers: Nausea presence: with nausea Qualified Code(s): K92.0 - Hematemesis Code(s): K92.0 - Hematemesis Status: Acute (2) Acute urinary retention: Code(s): R33.8 - Other retention of urine Status: Acute (3) Leukocytosis: Qualifiers: Leukocytosis type: unspecified Qualified Code(s): D72.829 - Elevated white blood cell count, unspecified Code(s): D72.829 - Elevated white blood cell count, unspecified Status: Acute (4) Anemia: Qualifiers: Anemia type: unspecified type Qualified Code(s): D64.9 - Anemia, unspecified Code(s): D64.9 - Anemia, unspecified Status: Acute (5) Parkinsons disease: Code(s): G20 - Parkinson's disease Status: Acute (6) Dementia: Qualifiers: Dementia type: unspecified type Dementia behavioral disturbance: without behavioral disturbance Qualified Code(s): F03.90 - Unspecified dementia without behavioral disturbance Code(s): F03.90 - Unspecified dementia without behavioral disturbance Status: Acute (7) GI bleed: Code(s): K92.2 - Gastrointestinal hemorrhage, unspecified Status: Acute (8) Colon distention: Code(s): K63.89 - Other specified diseases of intestine Status: Acute (9) Pneumonia: Code(s): J18.9 - Pneumonia, unspecified organism Status: Acute Additional Plan # Acute GI bleed with hematemesis : recently started on aspirin and plavix. hx of bleeding ulcer. no hx of alcohol abuse. platelet and coags okay. hold aspirin and plavix. on octreotide gtt and pantoprazole gtt. GI has been consulted. NG in place to watch for any increased bleeding. NPO # CT evidence of colon distention due to constipation and /or obstruction severely enlarged prostate gland with mass effect on rectum, hx of colon resection for colon cancer in remote past. GI on board for possible colonscopy?. check CEA level for any evidence of recurrence. # Bladder outlet obstruction:Larkin placed in the ER. he does have hx of urinary retention in the past due to BPH, however removed after TURP in 2017. # Right lower lobe airspace opacity With bronchiectasis? aspiration: will cover with zosyn for possilbe pneumonia. does have leukocytosis. # Prostatomegaly severely enlarged prostate gland with mass effect on the rectum history of TURP in 2017 # Abnormal thickening of the GE junction: likely esophagitis? variceal? empiric octreotide. will need EGD to further evaluate. GI on baord. # Leukocytosis: UA sent. on zosy. panctulrue. # History of suspected CVA treated with tPA 01/2021 ended up having [facility] was negative for strok e(formal report not available) # Parkinson's disease # Dementia with history of expressive aphasia # History of Colon resection more than 40 years ago in [place] # DVT proph: SCDs # Code status: discussed with the family. wants full code. 04/08/21 doing ok no complaints hgb stable at 8.1 on Zosyn transfer to med surg GI following cont current care dc in 24-48 hrs Subjective Date/time seen: 04/08/21 11:21 pt when asked how are you going? responds I'm okay! no further bleeding and tolerating CLD Exam Narrative: GENERAL: thin built, not actively bleeding, not in acute distress. HEAD: Normocephalic, atraumatic. EYES: EOMI. ENT: Nares clear, no rhinorrhea or epistaxis. Mucous membranes moist. NECK: Supple. No masses. No JVD CHEST: Clear to auscultation. No respiratory distress. No wheezes rales or rhonchi HEART: Regular rate and rhythm. No murmur heard. Normal peripheral pulses. ABDOMEN: Soft, nontender, nondistended, normal active bowel sounds. EXTREMITIES: Normal range of motion. No edema. SKIN: Warm, dry, no rash. NEURO: No focal deficits. alert, but confused. oriented to person only. not to time or place. Larkin in place with cloudy urine with sediments Objective D
[2021-04-08 11:52] LABS: Hemoglobin 8.8 g/dL (14.0-18.0)
--- NOTE | 2021-04-08 13:06 | WPDANESPN ---
Anes - Prog Note Post-Op Date/Time: 04/08/21 13:06 Cardiovascular status: normal Respiratory status: normal Airway patency: baseline Mental status: baseline Post-Op hydration status: normal Vital Signs: Last Vital Signs Temp 36.3 C L 04/08/21 12:41 Pulse 96 04/08/21 12:41 Resp 17 04/08/21 12:41 BP 104/63 04/08/21 12:41 Pulse Ox 99 04/08/21 12:41 Pain Score (VAS): 0 I/O: Intake & Output 04/07/21 04/08/21 04/08/21 23:59 07:59 15:59 Intake Total 405 0 400 Output Total 500 500 Balance -95 -500 400 Laboratory Tests 04/08/21 11:42 04/06/21 21:19 04/06/21 04/07/21 04/07/21 21:19 14:18 20:57 Hgb 7.2 L Cancelled Hct 22.7 L Cancelled Blood Type O Positive Antibody Screen Negative Crossmatch See Detail 04/08/21 04/08/21 04/08/21 04:51 08:53 11:42 Hgb 6.5 L* 8.1 L 8.8 L Hct 20.2 L* 24.9 L 29.0 L Blood Type Antibody Screen Crossmatch Microbiology 04/07/21 02:28 Urine Catheterized Urine Culture - Final Post-procedural complaints: none Patient Feedback: Patient satisfied with anesthetic care.
[2021-04-08] MEDS: DONEPEZIL HCL 10 MG TABLET PO (16:23)
--- NOTE | 2021-04-08 18:16 | PC.NURSE ---
This patient, Regan Croft, was transferred to [[address] [place] [address] ] on 04/08/21 at 1817. Personal belongings sent with patient. Report given to [ jesus mandujano]. Appropriate documentation sent with patient.
--- NOTE | 2021-04-08 18:21 | PC.NURSE ---
This patient, Regan Croft, was received from [[facility] ] on 04/08/21 at 1810. Patient oriented to unit policies and routines
[2021-04-08 18:42] LABS: Hematocrit 24.4 % (42.0-52.0)
[2021-04-09] VITALS: BP 143/88; PULSE 56; RESP 20; TEMP 36; O2SAT 97
--- NOTE | 2021-04-09 | PC.NURSE ---
Pt pulled his IV apart and was bleeding from IV cath. Wrapped his IV with gauze. Flushed IV. It is patent and intact.
[2021-04-09 05:59] LABS: Hematocrit 23.7 % (42.0-52.0); Hemoglobin 7.7 g/dL (14.0-18.0)
[2021-04-09 06:28] VITALS: BP 108/54; PULSE 64; RESP 20; TEMP 37; O2SAT 96
[2021-04-09 06:35] LABS: Hematocrit 25.1 % (42.0-52.0); Hemoglobin 8.2 g/dL (14.0-18.0)
[2021-04-09 08:00] VITALS: BP 106/44; PULSE 73; RESP 16; TEMP 36.3; O2SAT 100
--- NOTE | 2021-04-09 08:17 | WPDGIPROGNO ---
Progress Note: A&P Assessment and Plan (1) GI bleed: Code(s): K92.2 - Gastrointestinal hemorrhage, unspecified Status: Acute Assessment and Plan: no evidence of new bleeding since cauterizing gastric AVMs. He received 1 unit of blood. I inadvertently ordered unit a little earlier not knowing when had been given. We will transfuse him if his hemoglobin drops below 7, although I am certain his bleeding has stopped. From my perspective we can advance his diet. (2) Pneumonia: Code(s): J18.9 - Pneumonia, unspecified organism Status: Acute Assessment and Plan: He is on antibiotics and vital signs are stable . I wonder if he is having episodes of aspiration. I will order a modified barium swallow for tomorrow Subjective Date/time seen: 04/09/21 08:17 he appears comfortable, lying supine. His diet tray is next to him but he is not attempting to eat Exam Const: General: comfortable, no acute distress and confusion Nutritional Appearance: thin Orientation/consciousness: No oriented to place, No oriented to time and confusion Cardio: Rhythm: regular rhythm Objective Data Vital Signs Vital Signs: Vital Signs - 24 hr 04/08/21 09:44 04/08/21 10:00 04/08/21 12:41 Temperature 36.0 C L 36.3 C L Pulse Rate 93 91 96 Respiratory Rate 15 17 Blood Pressure 97/51 L 104/63 Pulse Oximetry 100 99 04/08/21 17:42 04/08/21 20:00 04/09/21 00:00 Temperature 36.6 C 36.8 C 36.0 C L Pulse Rate 93 84 56 L Respiratory Rate 21 H 20 20 Blood Pressure 112/46 L 107/65 143/88 H Pulse Oximetry 97 96 97 04/09/21 06:28 Temperature 37.0 C Pulse Rate 64 Respiratory Rate 20 Blood Pressure 108/54 L Pulse Oximetry 96 Intake/Output Intake/Output: Intake & Output 04/06/21 04/07/21 04/08/21 04/09/21 23:59 23:59 23:59 23:59 Intake Total 3030 500 300 Output Total 0 505 1025 450 Balance 0 0535 -525 -150 Meds/Results Medications: Active Medications Generic Name Dose Route Start Last Admin Trade Name Freq PRN Reason Stop Dose Admin Atorvastatin Calcium 10 mg 04/08/21 09:00 04/08/21 08:36 Atorvastatin 10 Mg Tablet PO 10 mg DAILY MARILYNN Administration Donepezil HCl 10 mg 04/08/21 18:00 04/08/21 16:23 Donepezil Hcl 10 Mg Tablet PO 10 mg QPM MARILYNN Administration Piperacillin Sod/Tazobactam Sod 2.25 gm in 50 mls @ 100 mls/hr 04/07/21 06:00 04/09/21 07:01 Zosyn 2.25 Gm/D5w 50 Ml IVPB Infused Q6HR MARILYNN Infusion Memantine 10 mg 04/08/21 09:00 04/08/21 16:23 Memantine 10 Mg Tablet PO 10 mg BID MARILYNN Administration Ondansetron HCl 4 mg 04/07/21 00:40 Ondansetron Inj 4 Mg/2 Ml Vial IV PUSH Q4H PRN Nausea Pantoprazole Sodium 40 mg 04/08/21 09:00 04/08/21 21:00 Pantoprazole Sodium Iv 40 Mg Vial IV PUSH 40 mg Q12HR MARILYNN Administration Radiology Results: ITS Impressions Abdomen/Pelvis CT 04/06/21 22:56 IMPRESSION: 1. Severely dilated colon with large amount of retained fecal material in the distal colon. There is transition in the rectum with mass effect by an enlarged prostate gland. Cannot exclude distal colonic mass. Recommend GI consultation. 2: Severely enlarged prostate gland with heterogeneous enhancement. Cannot exclude prostate cancer. 3: Diffuse bladder wall thickening, likely due to outlet obstruction. 4: Right lower lobe airspace consolidation may represent atelectasis or pneumonia. 5: Abnormal thickening of the gastroesophageal junction, which may be slightly due to infectious/inflammatory change, although malignancy cannot be excluded. Abdomen X-Ray 04/06/21 23:48 IMPRESSION: 1: NG tube tip in the stomach. Labs Labs: Laboratory Results - last 24 hr 04/06/21 04/08/21 04/08/21 21:19 08:53 11:42 Hgb 8.1 L 8.8 L Hct 24.9 L 29.0 L Blood Type O Positive Antibody Screen Negative Crossmatch See Detail 04/08/21 04/09/21 04/09/21 18:16 00:07 06:15 Hgb 8.0
--- NOTE | 2021-04-09 08:55 | PM.IMPN ---
Progress Note: A&P Assessment and Plan (1) Hematemesis: Qualifiers: Nausea presence: with nausea Qualified Code(s): K92.0 - Hematemesis Code(s): K92.0 - Hematemesis Status: Acute (2) Acute urinary retention: Code(s): R33.8 - Other retention of urine Status: Acute (3) Leukocytosis: Qualifiers: Leukocytosis type: unspecified Qualified Code(s): D72.829 - Elevated white blood cell count, unspecified Code(s): D72.829 - Elevated white blood cell count, unspecified Status: Acute (4) Anemia: Qualifiers: Anemia type: unspecified type Qualified Code(s): D64.9 - Anemia, unspecified Code(s): D64.9 - Anemia, unspecified Status: Acute (5) Parkinsons disease: Code(s): G20 - Parkinson's disease Status: Acute (6) Dementia: Qualifiers: Dementia behavioral disturbance: without behavioral disturbance Dementia type: unspecified type Qualified Code(s): F03.90 - Unspecified dementia without behavioral disturbance Code(s): F03.90 - Unspecified dementia without behavioral disturbance Status: Acute (7) GI bleed: Code(s): K92.2 - Gastrointestinal hemorrhage, unspecified Status: Acute (8) Colon distention: Code(s): K63.89 - Other specified diseases of intestine Status: Acute (9) Pneumonia: Code(s): J18.9 - Pneumonia, unspecified organism Status: Acute Additional Plan # Acute GI bleed with hematemesis : recently started on aspirin and plavix. hx of bleeding ulcer. no hx of alcohol abuse. platelet and coags okay. hold aspirin and plavix. on octreotide gtt and pantoprazole gtt. GI has been consulted. NG in place to watch for any increased bleeding. NPO # CT evidence of colon distention due to constipation and /or obstruction severely enlarged prostate gland with mass effect on rectum, hx of colon resection for colon cancer in remote past. GI on board for possible colonscopy?. check CEA level for any evidence of recurrence. # Bladder outlet obstruction:Bella placed in the ER. he does have hx of urinary retention in the past due to BPH, however removed after TURP in 2017. # Right lower lobe airspace opacity With bronchiectasis? aspiration: will cover with zosyn for possilbe pneumonia. does have leukocytosis. # Prostatomegaly severely enlarged prostate gland with mass effect on the rectum history of TURP in 2017 # Abnormal thickening of the GE junction: likely esophagitis? variceal? empiric octreotide. will need EGD to further evaluate. GI on baord. # Leukocytosis: UA sent. on zosy. panctulrue. # History of suspected CVA treated with tPA 01/2021 ended up having mri [facility] was negative for strok e(formal report not available) # Parkinson's disease # Dementia with history of expressive aphasia # History of Colon resection more than 40 years ago in [place] # DVT proph: SCDs # Code status: discussed with the family. wants full code. 04/08/21 doing ok no complaints hgb stable at 8.1 on Zosyn transfer to med surg GI following cont current care dc in 24-48 hrs 04/09/21 voiding trial , reinsert bella if fails trial, will need urology f/u CXR to assess possible PNA demented w Parkinsons is at risk to have aspiration events swallow eval ordered for tomorrow cont on Zosyn anticipate dc 1-2 days after swallow eval completed Subjective Date/time seen: 04/09/21 08:55 Patient lying in bed calm without obvious distress or agitation Exam Narrative: GENERAL: thin built, not in acute distress. HEAD: Normocephalic, atraumatic. EYES: EOMI. ENT: Nares clear, no rhinorrhea or epistaxis. Mucous membranes moist. NECK: Supple. No masses. No JVD CHEST: Clear to auscultation. No respiratory distress. No wheezes rales or rhonchi HEART: Regular rate and rhythm. No murmur heard. Normal peripheral pulses. ABDOMEN: Soft, nontender, nondistended, normal active bowel sounds. EXTREMITIES:
[2021-04-09 09:17] LABS: Basophils Percent Auto 0.4 % (0.2-1.2); Eosinophils Percent Auto 0.3 % (0-4.4); Hematocrit 25.6 % (42.0-52.0); Hemoglobin 8.2 g/dL (14.0-18.0); Immature Granulocyte Absolute 0.07 K/mm3 (0.00-0.031); Immature Granulocyte Percent A 0.7 % (0-0.5); Lymphocytes Absolute Auto 1.24 K/mm3 (0.9-3.2); Lymphocytes Percent Auto 11.7 % (18.3-44.2); Mean Corpuscular Hemoglobin 31.9 pg (26-34); Mean Corpuscular Volume 99.6 fl (80-100); Mean Platelet Volume 10.8 fl (7.4-10.4); Monocytes Absolute Auto 0.9 K/mm3 (0.1-0.6); Neutrophils Absolute Auto 8.4 K/mm3 (1.3-6.7); Neutrophils Percent Auto 78.9 % (45.5-73.1); Nucleated Red Blood Cells Perc 0.2 % (0.0-0.2); Platelet Count Result 158 k/mm3 (150-375); Red Blood Count 2.57 M/mm3 (4.6-6.20); Red Cell Distribution Width 17.2 % (11.5-14.5); White Blood Count 10.6 K/mm3 (4.5-10.0)
[2021-04-09] MEDS: PANTOPRAZOLE SODIUM IV 40 MG VIAL IV PUSH ×2 (09:21→21:56)
[2021-04-09] MEDS: ATORVASTATIN 10 MG TABLET PO (09:21)
[2021-04-09] MEDS: MEMANTINE 10 MG TABLET PO ×2 (09:21→17:20)
[2021-04-09 12:00] VITALS: BP 108/42; PULSE 74; RESP 18; TEMP 36; O2SAT 97
--- NOTE | 2021-04-09 14:10 | PCSTNOTE ---
Please refer to the Modified Barium Swallow Evaluation in the EMR.
[2021-04-09 16:00] VITALS: BP 103/49; PULSE 83; RESP 18; TEMP 35.9; O2SAT 99
[2021-04-09] MEDS: DONEPEZIL HCL 10 MG TABLET PO (17:19)
[2021-04-09 20:00] VITALS: BP 129/50; PULSE 81; RESP 20; TEMP 36.4; O2SAT 100
--- NOTE | 2021-04-09 23:58 | PC.NURSE ---
Addendum entered by Reagan Bermudez RN 04/10/21 05:30: 14fr coude catheter placed by lead worker of housekeeping and laundry @0100. Dr Pruitt notified there were multiple attempts with several catheter types and that urine drained very slowly when finally placed. Original Note: unable to place bella catheter on first attempt. Order received for lidocaine and coude catheter.
[2021-04-10] VITALS (7 sets, daily range): BP systolic 111–145; BP diastolic 65–86; PULSE 70–89; RESP 14–20; TEMP 35.9–36.9; O2SAT 95–100
[2021-04-10] MEDS: LIDOCAINE HCL 2% GEL UROJET 10 ML PKG MUCOUS MEM (00:11)
[2021-04-10 06:13] LABS: Anion Gap 3 mmol/L (8-16); Blood Urea Nitrogen 19 mg/dL (9-20); Calcium 7.8 mg/dL (8.4-10.2); Carbon Dioxide 25 mmol/L (22-30); Chloride 114 mmol/L (98-107); Estimated CRCL calculation 52 ml/min; Estimated Glomerular Filt Rate > 60; Glucose 81 mg/dL (65-110); Potassium 2.7 mmol/L (3.4-5.0); Sodium 142 mmol/L (137-145)
[2021-04-10 06:36] LABS: Basophils Percent Auto 0.3 % (0.2-1.2); Eosinophils Absolute Auto 0.1 K/mm3 (0-0.3); Hematocrit 23.4 % (42.0-52.0); Hemoglobin 7.5 g/dL (14.0-18.0); Immature Granulocyte Absolute 0.06 K/mm3 (0.00-0.031); Immature Granulocyte Percent A 0.7 % (0-0.5); Lymphocytes Absolute Auto 1.45 K/mm3 (0.9-3.2); Lymphocytes Percent Auto 16.3 % (18.3-44.2); Mean Corpuscular HGB Conc 32.1 g/dl (32-36); Mean Corpuscular Hemoglobin 31.1 pg (26-34); Mean Corpuscular Volume 97.1 fl (80-100); Mean Platelet Volume 10.7 fl (7.4-10.4); Monocytes Absolute Auto 0.6 K/mm3 (0.1-0.6); Monocytes Percent Auto 7.2 % (2.6-8.5); Neutrophils Absolute Auto 6.6 K/mm3 (1.3-6.7); Neutrophils Percent Auto 74.5 % (45.5-73.1); Platelet Count Result 172 k/mm3 (150-375); Red Blood Count 2.41 M/mm3 (4.6-6.20); Red Cell Distribution Width 16.5 % (11.5-14.5); White Blood Count 8.9 K/mm3 (4.5-10.0)
[2021-04-10] MEDS: PANTOPRAZOLE SODIUM IV 40 MG VIAL IV PUSH ×2 (08:04→20:27)
[2021-04-10] MEDS: MEMANTINE 10 MG TABLET PO ×2 (08:04→16:54)
[2021-04-10] MEDS: ATORVASTATIN 10 MG TABLET PO (08:05)
--- NOTE | 2021-04-10 10:50 | PCSTNOTE ---
Patient was seen for attempted Speech Therapy. Patient opened eyes when therapist spoke, but after receiving instructions for lingual strengthening exercises, patient would state, yeah, and then close eyes and not move tongue. This occurred for two separate but simple tongue movements, with no response. It was determined that patient was unable to follow these directions and session was terminated. Andreea Hospitalist, notified of discharge due to unable to participate.
--- NOTE | 2021-04-10 12:26 | PCNFU ---
Nutrition Follow-Up Complete: Inadequate oral intake related to GI bleed as evidenced by NPO status. Goal: Patient to meet estimated nutritional needs. Limited progress towards goal. We will continue current goal. Pt current nutrition is Pureed, Level 4. Last recorded weight is 52.3 kg, up from 49 kg on admit. Bowel Motility:+BM 04/10 Labs Reviewed:K 2.7,Hct 23.4,Hgb 7.5 Meds Noted:Protonix, Namenda, Aricept, Lipitor. Additional Notes: Patient seen today for nutrition follow up. MBS on 04/09- recommending Pureed, Level 4 diet. Oral Intake today 10% of meal. MD orders for Diet supplement added of Ensure compact BID for additional 220 kcals and 9 gms protein. Po intake encouraged. Monitoring: Follow up every 3 days.
[2021-04-10 13:04] LABS: Hematocrit 27.9 % (42.0-52.0); Hemoglobin 9.1 g/dL (14.0-18.0); Potassium 3.3 mmol/L (3.4-5.0)
--- NOTE | 2021-04-10 14:22 | P.PNIM_ITS ---
Progress Note: A&P Assessment and Plan (1) GI bleed: Code(s): K92.2 - Gastrointestinal hemorrhage, unspecified Status: Acute Assessment and Plan: Presented with hematemesis. Underwent EGD on 04/07/2021 which showed reflux esophagitis and AVM which was cauterized. This was felt to be the source of bleeding. * Appreciate gastroenterology consultation * Continue with Protonix b.i.d. * He is s/p octreotide drip * Plavix on hold (2) Acute blood loss anemia: Code(s): D62 - Acute posthemorrhagic anemia Status: Acute Assessment and Plan: Secondary to above. Hemoglobin 11.8 at presentation with decline down to 6.5. * Received total 2 units pRBC and hemoglobin has stabilized * Plan as above * Continue to monitor H&H daily to ensure remaining stable (3) Acute urinary retention: Code(s): R33.8 - Other retention of urine Status: Acute Assessment and Plan: Likely due to BPH. Daughter reports history of self cathing times 10 years prior to TURP. * Continue with Larkin catheter. He will be discharged with this. * Urology follow-up as an outpatient for further evaluation. * Urine culture negative * Patient's daughter would like him to follow-up with his urologist, Dr. Kerr, at [facility] (4) Elevated CEA: Code(s): R97.0 - Elevated carcinoembryonic antigen [CEA] Status: Acute Assessment and Plan: CEA elevated at 21.2. He does have remote history of colorectal cancer. Daughter reports approximately 8-10 lb weight loss over the course of 1 year, though she feels this is from dietary changes. * Discussed case with Dr. Frankel, interventional physician. * Planning to proceed with colonoscopy tomorrow * Appreciate GI recommendations (5) Dysphagia: Code(s): R13.10 - Dysphagia, unspecified Status: Acute Assessment and Plan: Likely secondary to Parkinsons disease. * Bedside swallow study and modified barium swallow performed on 04/09 with recommendations for pureed diet with thin liquids * Aspiration precautions in place * Additional measures per ST recommendations: Minimize distractions, verbal cues, check for pocketing/oral residue, and alternating bites and sips. * He was started on Zosyn due to concerns for aspiration pneumonia. CXR and clinical picture not consistent with aspiration pneumonia, therefore will discontinue IV Zosyn. Continue to monitor closely during meals. (6) Parkinsons disease: Code(s): G20 - Parkinson's disease Status: Acute Assessment and Plan: Does not appear to be in any medications for this. * Will benefit from neurology follow-up (7) Dementia: Qualifiers: Dementia type: unspecified type Dementia behavioral disturbance: without behavioral disturbance Qualified Code(s): F03.90 - Unspecified dementia without behavioral disturbance Code(s): F03.90 - Unspecified dementia without behavioral disturbance Status: Acute Assessment and Plan: With waxing and waning mental status. * Continue donepezil and memantine Subjective Date/time seen: 04/10/21 14:22 Interval history: Date of service: 04/10/21 Regan Croft is an 85-year-old male with history of dementia, TIA, BPH, and color ectal cancer 40 years ago s/p resection who is seen in follow-up for GI bleed. He is doing fairly well today. He is a poor historian given his dementia and has difficulty contributing to history. He denies any obvious pain. Denies shortness of
--- NOTE | 2021-04-10 14:22 | PM.IMPN ---
Progress Note: A&P Assessment and Plan (1) GI bleed: Code(s): K92.2 - Gastrointestinal hemorrhage, unspecified Status: Acute Assessment and Plan: Presented with hematemesis. Underwent EGD on 04/07/2021 which showed reflux esophagitis and AVM which was cauterized. This was felt to be the source of bleeding. Appreciate gastroenterology consultation Continue with Protonix b.i.d. He is s/p octreotide drip Plavix on hold (2) Acute blood loss anemia: Code(s): D62 - Acute posthemorrhagic anemia Status: Acute Assessment and Plan: Secondary to above. Hemoglobin 11.8 at presentation with decline down to 6.5. Received total 2 units pRBC and hemoglobin has stabilized Plan as above Continue to monitor H&H daily to ensure remaining stable (3) Acute urinary retention: Code(s): R33.8 - Other retention of urine Status: Acute Assessment and Plan: Likely due to BPH. Daughter reports history of self cathing times 10 years prior to TURP. Continue with Larkin catheter. He will be discharged with this. Urology follow-up as an outpatient for further evaluation. Urine culture negative Patient's daughter would like him to follow-up with his urologist, Dr. Kerr, at [facility] (4) Elevated CEA: Code(s): R97.0 - Elevated carcinoembryonic antigen [CEA] Status: Acute Assessment and Plan: CEA elevated at 21.2. He does have remote history of colorectal cancer. Daughter reports approximately 8-10 lb weight loss over the course of 1 year, though she feels this is from dietary changes. Discussed case with Dr. Frankel, slot operations manager. Planning to proceed with colonoscopy tomorrow Appreciate GI recommendations (5) Dysphagia: Code(s): R13.10 - Dysphagia, unspecified Status: Acute Assessment and Plan: Likely secondary to Parkinsons disease. Bedside swallow study and modified barium swallow performed on 04/09 with recommendations for pureed diet with thin liquids Aspiration precautions in place Additional measures per ST recommendations: Minimize distractions, verbal cues, check for pocketing/oral residue, and alternating bites and sips. He was started on Zosyn due to concerns for aspiration pneumonia. CXR and clinical picture not consistent with aspiration pneumonia, therefore will discontinue IV Zosyn. Continue to monitor closely during meals. (6) Parkinsons disease: Code(s): G20 - Parkinson's disease Status: Acute Assessment and Plan: Does not appear to be in any medications for this. Will benefit from neurology follow-up (7) Dementia: Qualifiers: Dementia type: unspecified type Dementia behavioral disturbance: without behavioral disturbance Qualified Code(s): F03.90 - Unspecified dementia without behavioral disturbance Code(s): F03.90 - Unspecified dementia without behavioral disturbance Status: Acute Assessment and Plan: With waxing and waning mental status. Continue donepezil and memantine Subjective Date/time seen: 04/10/21 14:22 Interval history: Date of service: 04/10/21 Regan Croft is an 85-year-old male with history of dementia, TIA, BPH, and colorectal cancer 40 years ago s/p resection who is seen in follow-up for GI bleed. He is doing fairly well today. He is a poor historian given his dementia and has difficulty contributing to history. He denies any obvious pain. Denies shortness of breath or chest pain. No abdominal pain. No further bleeding. Spoke with his RN he reports his last bowel movement was 1 day ago. His appetite has been poor. I spoke with his daughter/POA via phone today to answer questions and provide updates. Review of Systems Review of Systems: Limited review of systems due to dementia with pertinent positives and negatives as per HPI Exam Narrative: Mr. Croft is a thin, well-appearing 85-year-old male w
[2021-04-10] MEDS: BISACODYL 5 MG TABLET EC 10 MG PO ×2 (16:54→20:27)
[2021-04-10] MEDS: POTASSIUM CHLORIDE 20 MEQ TABLET.ER PO (16:54)
[2021-04-10] MEDS: DONEPEZIL HCL 10 MG TABLET PO (16:54)
[2021-04-10] MEDS: PEG (High)/E-LYTE SOLN 4,000 ML BTL 3000 ML PO (17:02)
[2021-04-10 21:48] LABS: PSA, Free 4.13 ng/mL; PSA, Total 11.4 ng/mL (<=4.0)
[2021-04-11] VITALS (14 sets, daily range): BP systolic 78–138; BP diastolic 46–89; PULSE 62–98; RESP 12–27; TEMP 36–36.4; O2SAT 96–100
[2021-04-11] MEDS: BISACODYL 5 MG TABLET EC 10 MG PO (02:54)
[2021-04-11] MEDS: MEMANTINE 10 MG TABLET PO ×2 (08:51→16:33)
[2021-04-11] MEDS: ATORVASTATIN 10 MG TABLET PO (08:51)
[2021-04-11] MEDS: POTASSIUM CHLORIDE 20 MEQ TABLET.ER PO ×2 (08:51→16:33)
[2021-04-11] MEDS: TAMSULOSIN HCL 0.4 MG CAPSULE PO (08:52)
[2021-04-11] MEDS: PANTOPRAZOLE SODIUM IV 40 MG VIAL IV PUSH ×2 (08:52→22:00)
[2021-04-11 09:29] LABS: Hematocrit 28.5 % (42.0-52.0); Hemoglobin 9.2 g/dL (14.0-18.0); Mean Corpuscular HGB Conc 32.3 g/dl (32-36); Mean Corpuscular Hemoglobin 32.1 pg (26-34); Mean Corpuscular Volume 99.3 fl (80-100); Mean Platelet Volume 10.3 fl (7.4-10.4); Platelet Count Result 223 k/mm3 (150-375); Red Blood Count 2.87 M/mm3 (4.6-6.20); Red Cell Distribution Width 16.6 % (11.5-14.5); White Blood Count 8.4 K/mm3 (4.5-10.0)
[2021-04-11 09:44] LABS: Anion Gap 8 mmol/L (8-16); Blood Urea Nitrogen 12 mg/dL (9-20); Calcium 8.1 mg/dL (8.4-10.2); Carbon Dioxide 23 mmol/L (22-30); Chloride 110 mmol/L (98-107); Estimated CRCL calculation 57 ml/min; Estimated Glomerular Filt Rate > 60; Glucose 76 mg/dL (65-110); Magnesium 2.1 mg/dL (1.6-2.3); Potassium 3.2 mmol/L (3.4-5.0); Sodium 141 mmol/L (137-145)
[2021-04-11] MEDS: LACTATED RINGERS 1,000 ML 150 ML IV CONT (13:12)
--- NOTE | 2021-04-11 13:13 | WPDANESEPPF ---
Anes - Initial Pre Proc Eval Procedure: Operation Date: 04/07/21 11:45 Proposed Procedures p Esophagogastroduodenoscopy - Juan M Frankel MD s Flexible Sigmoidoscopy - Juan M Frankel MD Operation Date: 04/11/21 13:45 Proposed Procedures p Colonoscopy - Juan M Frankel MD Date/Time: 04/11/21 13:13 Surgeon: Andreea Skelton PA-C Pre Op Diagnosis: Hematemesis Patient Data Age: 85 Gender: M Height: 1.73 m Weight: 52 kg Last Vital Signs Temp 96.9 F L 04/11/21 13:00 Pulse 98 04/11/21 13:00 Resp 12 04/11/21 13:00 BP 123/73 04/11/21 13:00 Pulse Ox 99 04/11/21 13:00 Allergies Allergy/AdvReac Type Severity Reaction Status Date / Time No Known Allergies Allergy Verified 04/11/21 12:58 Home Medications Medication Instructions Recorded Confirmed Type atorvastatin 10 mg tablet 10 mg PO DAILY #90 tablet 03/21/21 04/07/21 Rx clopidogrel 75 mg tablet 75 mg PO DAILY #90 tablet 03/21/21 04/07/21 Rx donepezil 10 mg PO QPM 04/07/21 04/07/21 History memantine 10 mg PO BID 04/07/21 04/07/21 History Laboratory Tests 04/07/21 04/11/21 04/11/21 04:35 09:14 09:14 WBC 8.4 K/mm3 K/mm3 (4.5-10.0) RBC 2.87 M/mm3 L M/mm3 (4.6-6.20) Hgb 9.2 g/dL L g/dL (14.0-18.0) Hct 28.5 % L % (42.0-52.0) MCV 99.3 fl fl (80-100) MCH 32.1 pg pg (26-34) MCHC 32.3 g/dl g/dl (32-36) RDW 16.6 % H % (11.5-14.5) Plt Count 223 k/mm3 k/mm3 (150-375) MPV 10.3 fl fl (7.4-10.4) Sodium 141 mmol/L mmol/L (137-145) Potassium 3.2 mmol/L L mmol/L (3.4-5.0) Chloride 110 mmol/L H mmol/L (98-107) Carbon Dioxide 23 mmol/L mmol/L (22-30) Anion Gap 8 mmol/L mmol/L (8-16) BUN 12 mg/dL D mg/dL (9-20) Creatinine 0.60 mg/dL L mg/dL (0.7-1.3) Estim Creat Clear Calc 57 ml/min ml/min Estimated GFR > 60 (59 - ) Glucose 76 mg/dL mg/dL (65-110) Calcium 8.1 mg/dL L mg/dL (8.4-10.2) Magnesium 2.1 mg/dL mg/dL (1.6-2.3) Free PSA 4.13 ng/mL ng/mL % Free PSA Not applicable Total PSA 11.4 ng/mL H ng/mL (<=4.0) Patient hx anesthesia problems: none Family hx anesthesia problems: none [facility] Past Medical History Medical History (Updated 04/10/21 @ 16:26 by Andreea Skelton PA-C) Colorectal cancer Dementia TIA (transient ischemic attack) Surgical History Surgical History (Updated 04/10/21 @ 16:20 by Andreea Skelton PA-C) H/O transurethral resection of prostate Family History Family History Father Family history of malignant neoplasm Family history of respiratory disorder, Onset Age: 50 Patient's father is Mother Family history of transient ischemic attacks, Onset Age: 83 Family history of heart disease in male family member before age 55, Onset Age: 83 Patient's mother is Social History Social History Smoking status: Never smoker Alcohol intake: never Substance use: never Spiritual care concerns: No Anes - Eval Final PreProcedure Day of Procedure 04/11/21 13:13 Patient weight: normal Heart: regular rate and rhythm Lungs: clear to auscultation Airway: Mallampati scale class II Neurological: alert and oriented Last oral intake: >/= 8 hours ASA classification: IV Emergent: no Anesthetic plan: proceed Anesthesia type and monitoring: general GIVS and standard monitoring Informed Consent: The patient's anesthetic plan and its attendant risks and benefits were discussed with the patient/family/POA. Questions were solicited and answers provided to the satisfaction of the patient/family/POA.
--- NOTE | 2021-04-11 14:53 | SUR.PHASEII ---
Blood pressure 78/46 Dr. Muhammad Anesthesia notified orders to give remainder of bag of Lactated ringers.
--- NOTE | 2021-04-11 15:22 | PC.NURSE ---
On 04/11/21, the student, Joya Yuen, provided care and completed [facility] documentation on this patient. I have reviewed the student's documentation and agree with the findings.
[2021-04-11] MEDS: polyethylene glycoL 3350 238 GM BOTTLE PO (15:49)
--- NOTE | 2021-04-11 16:53 | P.PNIM_ITS ---
Progress Note: A&P Assessment and Plan (1) GI bleed: Code(s): K92.2 - Gastrointestinal hemorrhage, unspecified Status: Acute Assessment and Plan: Presented with hematemesis. Underwent EGD on 04/07/2021 which showed reflux esophagitis and AVM which was cauterized. This was felt to be the source of bleeding. * Appreciate gastroenterology consultation * Continue with Protonix b.i.d. * He is s/p octreotide drip * Plavix on hold (2) Acute blood loss anemia: Code(s): D62 - Acute posthemorrhagic anemia Status: Acute Assessment and Plan: Secondary to above. Hemoglobin 11.8 at presentation with decline down to 6.5. Improved with hemoglobin remaining stable around 9 * Received total 2 units pRBC and hemoglobin has stabilized * Plan as above * Continue to monitor H&H daily to ensure remaining stable (3) Acute urinary retention: Code(s): R33.8 - Other retention of urine Status: Acute Assessment and Plan: Likely due to BPH. Daughter reports history of self cathing x10 years prior to TURP. * Continue with Larkin catheter. He will be discharged with this. * Urology follow-up as an outpatient for further evaluation. * Urine culture negative * Patient's daughter would like him to follow-up with his urologist, Dr. Kerr, at [facility] [address] * Has been initiated on Flomax (4) Elevated CEA: Code(s): R97.0 - Elevated carcinoembryonic antigen [CEA] Status: Acute Assessment and Plan: CEA elevated at 21.2. He does have remote history of colorectal cancer. Daughter reports approximately 8-10 lb weight loss over the course of 1 year, though she feels this is from dietary changes. * Discussed case with Dr. Frankel, sausage cooker. * Plan for colonoscopy today, however prep was inadequate. Will repeat prep again this evening and proceed with colonoscopy tomorrow. * Appreciate GI recommendations (5) Dysphagia: Code(s): R13.10 - Dysphagia, unspecified Status: Acute Assessment and Plan: Likely secondary to Parkinsons disease. * Bedside swallow study and modified barium swallow performed on 04/09 with recommendations for pureed diet with thin liquids * Aspiration precautions in place * Additional measures per ST recommendations: Minimize distractions, verbal cues, check for pocketing/oral residue, and alternating bites and sips. * He was started on Zosyn due to concerns for aspiration pneumonia. CXR and clinical picture not consistent with aspiration pneumonia, therefore Zosyn was discontinued on 04/10. * Continue to monitor closely during meals. No issues with dysphagia noted today. (6) Parkinsons disease: Code(s): G20 - Parkinson's disease Status: Acute Assessment and Plan: Does not appear to be on any medications for this. * Will benefit from neurology follow-up (7) Dementia: Qualifiers: Dementia type: unspecified type Dementia behavioral disturbance: without behavioral disturbance Qualified Code(s): F03.90 - Unspecified dementia without behavioral disturbance Code(s): F03.90 - Unspecified dementia without behavioral disturbance Status: Acute Assessment and Plan: With waxing and waning mental status. * Continue donepezil and memantine (8) Hypokalemia: Code(s): E87.6 - Hypokalemia Status: Acute Assessment and Plan: Likely secondary to poor p.o. intake. Potassium improved today at 3.2, up from 2.7 yesterday
--- NOTE | 2021-04-11 16:53 | PM.IMPN ---
Progress Note: A&P Assessment and Plan (1) GI bleed: Code(s): K92.2 - Gastrointestinal hemorrhage, unspecified Status: Acute Assessment and Plan: Presented with hematemesis. Underwent EGD on 04/07/2021 which showed reflux esophagitis and AVM which was cauterized. This was felt to be the source of bleeding. Appreciate gastroenterology consultation Continue with Protonix b.i.d. He is s/p octreotide drip Plavix on hold (2) Acute blood loss anemia: Code(s): D62 - Acute posthemorrhagic anemia Status: Acute Assessment and Plan: Secondary to above. Hemoglobin 11.8 at presentation with decline down to 6.5. Improved with hemoglobin remaining stable around 9 Received total 2 units pRBC and hemoglobin has stabilized Plan as above Continue to monitor H&H daily to ensure remaining stable (3) Acute urinary retention: Code(s): R33.8 - Other retention of urine Status: Acute Assessment and Plan: Likely due to BPH. Daughter reports history of self cathing x10 years prior to TURP. Continue with Larkin catheter. He will be discharged with this. Urology follow-up as an outpatient for further evaluation. Urine culture negative Patient's daughter would like him to follow-up with his urologist, Dr. Kerr, at [facility] Has been initiated on Flomax (4) Elevated CEA: Code(s): R97.0 - Elevated carcinoembryonic antigen [CEA] Status: Acute Assessment and Plan: CEA elevated at 21.2. He does have remote history of colorectal cancer. Daughter reports approximately 8-10 lb weight loss over the course of 1 year, though she feels this is from dietary changes. Discussed case with Dr. Frankel, restaurant crew. Plan for colonoscopy today, however prep was inadequate. Will repeat prep again this evening and proceed with colonoscopy tomorrow. Appreciate GI recommendations (5) Dysphagia: Code(s): R13.10 - Dysphagia, unspecified Status: Acute Assessment and Plan: Likely secondary to Parkinsons disease. Bedside swallow study and modified barium swallow performed on 04/09 with recommendations for pureed diet with thin liquids Aspiration precautions in place Additional measures per ST recommendations: Minimize distractions, verbal cues, check for pocketing/oral residue, and alternating bites and sips. He was started on Zosyn due to concerns for aspiration pneumonia. CXR and clinical picture not consistent with aspiration pneumonia, therefore Zosyn was discontinued on 04/10. Continue to monitor closely during meals. No issues with dysphagia noted today. (6) Parkinsons disease: Code(s): G20 - Parkinson's disease Status: Acute Assessment and Plan: Does not appear to be on any medications for this. Will benefit from neurology follow-up (7) Dementia: Qualifiers: Dementia type: unspecified type Dementia behavioral disturbance: without behavioral disturbance Qualified Code(s): F03.90 - Unspecified dementia without behavioral disturbance Code(s): F03.90 - Unspecified dementia without behavioral disturbance Status: Acute Assessment and Plan: With waxing and waning mental status. Continue donepezil and memantine (8) Hypokalemia: Code(s): E87.6 - Hypokalemia Status: Acute Assessment and Plan: Likely secondary to poor p.o. intake. Potassium improved today at 3.2, up from 2.7 yesterday Continue with 20 mEq KCL b.i.d. Additional 20 mEq given today given GI losses from colonoscopy prep Repeat BMP tomorrow and check magnesium Supplement potassium as needed Subjective Date/time seen: 04/11/21 16:53 Interval history: Date of service: 04/11/21 Regan Croft is an 85-year-old male with history of dementia, TIA, BPH, and colorectal cancer 40 years ago s/p resection who is seen in follow-up for GI bleed. He is doing well today. He is more
[2021-04-11] MEDS: DONEPEZIL HCL 10 MG TABLET PO (17:02)
[2021-04-11] MEDS: POTASSIUM CHLORIDE 20 MEQ TABLET PO (17:02)
[2021-04-12] VITALS (9 sets, daily range): BP systolic 109–133; BP diastolic 61–86; PULSE 71–89; RESP 14–25; TEMP 35.9–36.7; O2SAT 97–100
--- NOTE | 2021-04-12 00:09 | PC.NURSE ---
Dr Frankel notified pt has not had a BM, 3h post bowel prep completion. Order received for 10mg dulcolax tabs.
[2021-04-12] MEDS: BISACODYL 5 MG TABLET EC 10 MG PO (00:47)
[2021-04-12 05:34] LABS: Hematocrit 24.8 % (42.0-52.0); Mean Corpuscular HGB Conc 32.3 g/dl (32-36); Mean Corpuscular Hemoglobin 31.5 pg (26-34); Mean Corpuscular Volume 97.6 fl (80-100); Mean Platelet Volume 9.9 fl (7.4-10.4); Platelet Count Result 218 k/mm3 (150-375); Red Blood Count 2.54 M/mm3 (4.6-6.20); Red Cell Distribution Width 16.7 % (11.5-14.5); White Blood Count 7.1 K/mm3 (4.5-10.0)
[2021-04-12 06:13] LABS: Anion Gap 3 mmol/L (8-16); Blood Urea Nitrogen 10 mg/dL (9-20); Carbon Dioxide 25 mmol/L (22-30); Chloride 109 mmol/L (98-107); Estimated CRCL calculation 47 ml/min; Estimated Glomerular Filt Rate > 60; Glucose 80 mg/dL (65-110); Magnesium 1.9 mg/dL (1.6-2.3); Potassium 3.6 mmol/L (3.4-5.0); Sodium 137 mmol/L (137-145)
--- NOTE | 2021-04-12 08:04 | WPDANESEPPF ---
Anes - Initial Pre Proc Eval Procedure: Operation Date: 04/12/21 12:00 Proposed Procedures p Colonoscopy - Juan M Frankel MD Date/Time: 04/12/21 08:04 Surgeon: Andreea Skelton PA-C Pre Op Diagnosis: Hematemesis Patient Data Age: 85 Gender: M Height: 1.73 m Weight: 48.8 kg Last Vital Signs Temp 36.2 C L 04/12/21 04:30 Pulse 82 04/12/21 04:30 Resp 16 04/12/21 04:30 BP 127/86 04/12/21 04:30 Pulse Ox 100 04/12/21 04:30 Allergies Allergy/AdvReac Type Severity Reaction Status Date / Time No Known Allergies Allergy Verified 04/11/21 12:58 Home Medications Medication Instructions Recorded Confirmed Type atorvastatin 10 mg tablet 10 mg PO DAILY #90 tablet 03/21/21 04/07/21 Rx clopidogrel 75 mg tablet 75 mg PO DAILY #90 tablet 03/21/21 04/07/21 Rx donepezil 10 mg PO QPM 04/07/21 04/07/21 History memantine 10 mg PO BID 04/07/21 04/07/21 History Laboratory Tests 04/11/21 04/11/21 04/12/21 09:14 09:14 05:25 WBC 8.4 K/mm3 K/mm3 7.1 K/mm3 K/mm3 (4.5-10.0) (4.5-10.0) RBC 2.87 M/mm3 L M/mm3 2.54 M/mm3 L M/mm3 (4.6-6.20) (4.6-6.20) Hgb 9.2 g/dL L g/dL 8.0 g/dL L g/dL (14.0-18.0) (14.0-18.0) Hct 28.5 % L % 24.8 % L % (42.0-52.0) (42.0-52.0) MCV 99.3 fl fl 97.6 fl fl (80-100) (80-100) MCH 32.1 pg pg 31.5 pg pg (26-34) (26-34) MCHC 32.3 g/dl g/dl 32.3 g/dl g/dl (32-36) (32-36) RDW 16.6 % H % 16.7 % H % (11.5-14.5) (11.5-14.5) Plt Count 223 k/mm3 k/mm3 218 k/mm3 k/mm3 (150-375) (150-375) MPV 10.3 fl fl 9.9 fl fl (7.4-10.4) (7.4-10.4) Sodium 141 mmol/L mmol/L (137-145) Potassium 3.2 mmol/L L mmol/L (3.4-5.0) Chloride 110 mmol/L H mmol/L (98-107) Carbon Dioxide 23 mmol/L mmol/L (22-30) Anion Gap 8 mmol/L mmol/L (8-16) BUN 12 mg/dL D mg/dL (9-20) Creatinine 0.60 mg/dL L mg/dL (0.7-1.3) Estim Creat Clear Calc 57 ml/min ml/min Estimated GFR > 60 (59 - ) Glucose 76 mg/dL mg/dL (65-110) Calcium 8.1 mg/dL L mg/dL (8.4-10.2) Magnesium 2.1 mg/dL mg/dL (1.6-2.3) 04/12/21 05:25 WBC RBC Hgb Hct MCV MCH MCHC RDW Plt Count MPV Sodium 137 mmol/L mmol/L (137-145) Potassium 3.6 mmol/L mmol/L (3.4-5.0) Chloride 109 mmol/L H mmol/L (98-107) Carbon Dioxide 25 mmol/L mmol/L (22-30) Anion Gap 3 mmol/L L mmol/L (8-16) BUN 10 mg/dL mg/dL (9-20) Creatinine 0.70 mg/dL mg/dL (0.7-1.3) Estim Creat Clear Calc 47 ml/min ml/min Estimated GFR > 60 (59 - ) Glucose 80 mg/dL mg/dL (65-110) Calcium 8.0 mg/dL L mg/dL (8.4-10.2) Magnesium 1.9 mg/dL mg/dL (1.6-2.3) Patient hx anesthesia problems: none Family hx anesthesia problems: none [facility] Past Medical History Medical History (Updated 04/12/21 @ 08:04 by Indio Farmer, ) Colorectal cancer Dementia Hyperlipidemia TIA (transient ischemic attack) Surgical History Surgical History (Updated 04/10/21 @ 16:20 by Andreea Skelton PA-C) H/O transurethral resection of prostate Family History Family History Father Family history of malignant neoplasm Family history of respiratory disorder, Onset Age: 50 Patient's father is Mother Family history of transient ischemic attacks, Onset Age: 83 Family history of heart disease in male family member before age 55, Onset Age: 83 Patient's mother is Social History Social History Smoking status: Never smoker Alcohol intake: never Substance use: never Spiritual care concerns: No Anes - Eval Final PreProcedure Day of Procedure 04/12/21 08:04 Patient
--- NOTE | 2021-04-12 09:47 | PCPTNOTE ---
Attempted treatment was unable to arouse and keep patient awake with nursing staff present for assistance will attempt at a later time.
[2021-04-12] MEDS: LACTATED RINGERS 1,000 ML 150 ML IV CONT (11:03)
--- NOTE | 2021-04-12 11:28 | PCOTNOTE ---
Attempted to see pt 2x this AM. At 1st attempt, pt was sleeping and would verbally (mumble) acknowledge therapist however would keep eyes closed, despite sternal rubbing and tapping. At 2nd attempt, pt was out of room due to having a procedure done. RN was made aware of therapist's attempts and requests that if able to try again in the PM. Will continue per poc duration/frequency.
[2021-04-12] MEDS: ATORVASTATIN 10 MG TABLET PO (12:26)
[2021-04-12] MEDS: TAMSULOSIN HCL 0.4 MG CAPSULE PO (12:26)
[2021-04-12] MEDS: PANTOPRAZOLE SODIUM IV 40 MG VIAL IV PUSH (12:26)
[2021-04-12] MEDS: POTASSIUM CHLORIDE 20 MEQ TABLET.ER PO ×2 (12:26→17:16)
[2021-04-12] MEDS: MEMANTINE 10 MG TABLET PO ×2 (12:26→17:16)
[2021-04-12 15:05] LABS: Hematocrit 31.1 % (42.0-52.0); Hemoglobin 9.7 g/dL (14.0-18.0)
--- NOTE | 2021-04-12 16:46 | PM.DS ---
DS: Admitting Diagnosis Discharge Date 04/12/2021 Admitting Diagnosis GI bleed DS: Discharge Diagnosis Discharge Diagnosis (1) GI bleed: Code(s): K92.2 - Gastrointestinal hemorrhage, unspecified Status: Acute Assessment and Plan: Presented with hematemesis. Underwent EGD on 04/07/2021 which showed reflux esophagitis and AVM which was cauterized. This was felt to be the source of bleeding. Seen in consultation by Gastroenterology Received octreotide drip Continue p.o. Protonix b.i.d. Bleeding resolved Plavix initially held but resumed upon discharge after discussion with GI, Dr. Frankel (2) Acute blood loss anemia: Code(s): D62 - Acute posthemorrhagic anemia Status: Acute Assessment and Plan: Secondary to above. Hemoglobin 11.8 at presentation with decline down to 6.5. Received total 2 units PRBC and hemoglobin stabilized. No further blood loss. Vital signs are stable. Plan as above. Repeat H&H in 1 week to ensure remaining stable. (3) Acute urinary retention: Code(s): R33.8 - Other retention of urine Status: Acute Assessment and Plan: Likely due to BPH. Daughter reports history of self cathing x10 years prior to TURP. CT showed severely enlarged prostate gland. He failed a voiding trial and will continue with Larkin catheter at home. He was educated on care for this. He will need to follow-up with urology as an outpatient. He is established with Dr. Kerr, at [facility] and will need to be seen within 1 week for voiding trial. Urine culture negative. Started on Flomax which will be continued. Free PSA within normal limits. (4) Elevated CEA: Code(s): R97.0 - Elevated carcinoembryonic antigen [CEA] Status: Acute Assessment and Plan: CEA elevated at 21.2. He does have remote history of colorectal cancer. Daughter reports approximately 8-10 lb weight loss over the course of 1 year, though she feels this is from dietary changes. Case discussed with machine oiler, Dr. Frankel. Proceed with colonoscopy with 1st attempt on 04/11, though he had inadequate prep and this was not completed. Repeated on 04/12 with advancement to the mid transverse colon. Not able to evaluate the right colon. No evidence of masses noted CT scan with the exception of mass effect in the rectum likely due to enlarged prostate. If patient and family would like to pursue further workup, Dr. Frankel can arrange virtual colonoscopy at [facility]. CA 19-9 is pending. Follow-up with GI as an outpatient. (5) Functional megacolon: Code(s): K59.39 - Other megacolon Status: Acute Assessment and Plan: Evident on colonoscopy performed on 04/12. CT showed dilated colon with retained fecal material. Started on daily MiraLax. He was able to tolerate a pureed diet. (6) Dysphagia: Code(s): R13.10 - Dysphagia, unspecified Status: Acute Assessment and Plan: Likely secondary to Parkinsons disease. Bedside swallow study and modified barium swallow performed on 04/09 with recommendations for pureed diet with thin liquids. Aspirations precautions implemented. Additional measures per ST recommendations: Minimize distractions, verbal cues, check for pocketing/oral residue, and alternating bites and sips. He was initially started on Zosyn due to concerns for aspiration pneumonia, however CXR and clinical picture not consistent with aspiration pneumonia, therefore Zosyn was discontinued on 04/10. He will need close monitoring during meals. (7) Parkinsons disease: Code(s): G20 - Parkinson's disease Status: Acute Assessment and Plan: Does not appear to be on any medications for this. Should follow up with PCP and consider neurology referral. (8) Dementia: Qualifiers: Dementia behavioral disturbance: without behavioral disturbance Dementia type: unspecified type Qualified Code(s): F03.90 - Unsp
[2021-04-12] MEDS: DONEPEZIL HCL 10 MG TABLET PO (17:16)
--- NOTE | 2021-04-13 10:21 | WPDANESPN ---
Anes - Prog Note Post-Op Date/Time: 04/13/21 10:21 Cardiovascular status: normal Respiratory status: normal Airway patency: baseline Mental status: baseline Post-Op hydration status: normal Vital Signs: Last Vital Signs Temp 97.6 F 04/12/21 15:13 Pulse 85 04/12/21 15:13 Resp 14 04/12/21 15:13 BP 110/70 04/12/21 15:13 Pulse Ox 97 04/12/21 15:13 Pain Score (VAS): 08/07 I/O: Intake & Output 04/12/21 04/13/21 04/13/21 23:59 07:59 15:59 Intake Total 440 Output Total 275 Balance 165 Laboratory Tests 04/12/21 14:52 04/12/21 05:25 04/12/21 04/12/21 14:52 14:52 Hgb 9.7 L Hct 31.1 L CA 19-9 Antigen Pending Post-procedural complaints: none Patient Feedback: Patient satisfied with anesthetic care.
[2021-04-15 06:32] LABS: CA 19-9 170 U/mL (<34)
== END 2021-04-12 18:05 | disposition home health service (06) | DRG 378 ==
LOC: ANHED 04-07 00:43 → ANHIMU 04-07 01:08 → ANH2MED 04-10 07:13 → ANHIMU 04-14 10:18
PROVIDERS: Hospitalist; Internal Medicine; Internal Medicine Gastroenterology; Admitting Provider Internal Medicine; Emergency Provider Emergency Medicine; PCP Emergency Medicine; Visit Provider Physician Assistant
PROC: 0DJ08ZZ Inspection of Upper Intestinal Tract, Via Natural or Artificial Opening Endoscopic (ICD-10-PCS; CPT 43235; principal; 2021-04-07 11:45)
PROC: 0DJD8ZZ Inspection of Lower Intestinal Tract, Via Natural or Artificial Opening Endoscopic (ICD-10-PCS; CPT 45330; 2021-04-07 11:45)
PROC: 0DJD8ZZ Inspection of Lower Intestinal Tract, Via Natural or Artificial Opening Endoscopic (ICD-10-PCS; CPT 45378; principal; 2021-04-11 13:45)
DX: K31.811 Angiodysplasia of stomach and duodenum with bleeding (principal); D62 Acute posthemorrhagic anemia; K59.39 Other megacolon; K21.00 Gastro-esophageal reflux disease with esophagitis, without bleeding; K29.70 Gastritis, unspecified, without bleeding; R13.19 Other dysphagia; E87.6 Hypokalemia; D72.829 Elevated white blood cell count, unspecified; N40.1 Benign prostatic hyperplasia with lower urinary tract symptoms; R33.8 Other retention of urine; R97.0 Elevated carcinoembryonic antigen [CEA]; G20 Parkinson's disease; F03.90 Unspecified dementia, unspecified severity, without behavioral disturbance, psychotic disturbance, mood disturbance, and anxiety; Z85.038 Personal history of other malignant neoplasm of large intestine; Z86.73 Personal history of transient ischemic attack (TIA), and cerebral infarction without residual deficits
CPT/HCPCS: 36415; 36430; 51702; 71045; 74177; 80048; 80053; 81001; 82378; 83735; 84132; 84153; 84154; 85014; 85018; 85025; 85027; 85610; 85730; 86301; 86850; 86900; 86901; 86920; 87081; 87086; 92611; 93005; 96361; 96365; 96366; 96375; 97110; 97161; 97165; 97530; 99285; A9270; C9113; G0378; J2354; J2405; J2543; J2704; J3480; J7030; J7050; J7060; J7120; P9016; Q9967

== ENCOUNTER 2021-04-18 22:46 | Emergency (ER) | payer MEDICARE, SELFPAY ==
[2021-04-18 22:57] VITALS: BP 122/74; PULSE 75; RESP 16; TEMP 36.6; O2SAT 98
--- NOTE | 2021-04-18 23:43 | ED.GENADULT ---
HPI - General Adult General Chief complaint: Urogenital-Male Stated complaint: urinary retention Time Seen by Provider: 04/18/21 22:57 History of Present Illness HPI narrative: Patient 86-year-old gentleman who presents the emergency department with chief complaint of urinary retention. The patient reports he had a catheter removed today and they instilled saline in his bladder and he was unable to void afterwards the patient went home and has not been able to void since then. Patient reports he is uncomfortable feeling in his suprapubic area and reports that he needs to urinate but cannot Related Data Home Medications Medication Instructions Recorded Confirmed donepezil 10 mg PO QPM 04/07/21 04/07/21 memantine 10 mg PO BID 04/07/21 04/07/21 Allergies Allergy/AdvReac Type Severity Reaction Status Date / Time No Known Allergies Allergy Verified 04/11/21 12:58 Review of Systems Review of Systems: A 10 system review of systems was completed on the patient and is negative except for what is stated in the HPI. Nursing and ancillary documentation was reviewed. [facility] Past Medical History Medical History Colorectal cancer Dementia Hyperlipidemia TIA (transient ischemic attack) Surgical History Surgical History H/O transurethral resection of prostate Family History Family History Father Family history of malignant neoplasm Family history of respiratory disorder, Onset Age: 50 Patient's father is Mother Family history of transient ischemic attacks, Onset Age: 83 Family history of heart disease in male family member before age 55, Onset Age: 83 Patient's mother is Social History Social History Smoking status: Never smoker Alcohol intake: never Substance use: never Spiritual care concerns: No Exam Narrative: GENERAL: Well-appearing, well-nourished, and in no acute distress. HEAD: Normocephalic, atraumatic. EYES: PERRLA and EOMI. ENT: Nares clear, no rhinorrhea or epistaxis. Mucous membranes moist. NECK: Supple. CHEST: Clear to auscultation. No respiratory distress. HEART: Regular rate and rhythm. No murmur heard. Normal peripheral pulses. ABDOMEN: Soft, nontender, nondistended, normal active bowel sounds. EXTREMITIES: Normal range of motion. No edema. SKIN: Warm, dry, no rash. NEURO: No focal deficits. Alert and oriented x3. PSYCH: Normal mood and affect. Course Vital Signs Vital signs: Vital Signs Temperature 36.6 C 04/18/21 22:57 Pulse Rate 75 04/18/21 22:57 Respiratory Rate 16 04/18/21 22:57 Blood Pressure 122/74 04/18/21 22:57 Pulse Oximetry 98 04/18/21 22:57 Temperature 36.6 C 04/18/21 22:57 Pulse Rate 75 04/18/21 22:57 Respiratory Rate 16 04/18/21 22:57 Blood Pressure 122/74 04/18/21 22:57 Pulse Oximetry 98 04/18/21 22:57 Medical Decision Making Vital Signs Vital Signs: Vital Signs Temperature 36.6 C 04/18/21 22:57 Pulse Rate 75 04/18/21 22:57 Respiratory Rate 16 04/18/21 22:57 Blood Pressure 122/74 04/18/21 22:57 Pulse Oximetry 98 04/18/21 22:57 Temperature 36.6 C 04/18/21 22:57 Pulse Rate 75 04/18/21 22:57 Respiratory Rate 16 04/18/21 22:57 Blood Pressure 122/74 04/18/21 22:57 Pulse Oximetry 98 04/18/21 22:57 Discharge Plan Discharge Clinical Impression: Acute urinary retention Patient Disposition: Home, Self-Care Condition: Stable Instructions: Antibiotic Form, Larkin Catheter Placement and Care (ED), Urinary Retention in Men (ED), How to Change a Catheter Drainage Bag (DC) Prescriptions: No Action clopidogrel [Plavix] 75 mg tablet 75 mg PO DAILY Qty: 90 RF: 0 atorvastatin 10 m
--- NOTE | 2021-04-27 19:13 | PC.NURSE ---
LATE ENTRY This note is being entered to document information to the patient's record. The following information was omitted on [04/27/21], by [YUNIOR Palma] NADER Pickens initiate Larkin catheter.
== END 2021-04-18 23:55 | disposition home or self-care (01) ==
PROVIDERS: Emergency Provider Emergency Medicine; PCP Emergency Medicine
DX: R33.9 Retention of urine, unspecified (principal); F03.90 Unspecified dementia, unspecified severity, without behavioral disturbance, psychotic disturbance, mood disturbance, and anxiety; E78.5 Hyperlipidemia, unspecified; Z85.038 Personal history of other malignant neoplasm of large intestine
CPT/HCPCS: 51702; 99283

== ENCOUNTER 2021-04-19 10:59 | Outpatient (NON) | payer MEDICARE, SELFPAY ==
[2021-04-19 12:05] LABS: Anion Gap 2 mmol/L (8-16); Blood Urea Nitrogen 14 mg/dL (9-20); Calcium 8.9 mg/dL (8.4-10.2); Carbon Dioxide 29 mmol/L (22-30); Chloride 105 mmol/L (98-107); Estimated Glomerular Filt Rate > 60; Glucose 88 mg/dL (65-110); Potassium 3.9 mmol/L (3.4-5.0); Sodium 136 mmol/L (137-145)
== END 2021-04-19 11:00 | disposition home or self-care (01) ==
PROVIDERS: PCP Emergency Medicine; Visit Provider Emergency Medicine
DX: D62 Acute posthemorrhagic anemia (principal); E87.6 Hypokalemia
CPT/HCPCS: 80048; 85014; 85018

== ENCOUNTER 2021-04-27 12:59 | Outpatient (NON) | payer MEDICARE, SELFPAY ==
[2021-04-30 07:01] LABS: CA 19-9 106 U/mL (<34)
== END 2021-04-27 13:00 | disposition home or self-care (01) ==
LOC: HOME HLTH 13:00
PROVIDERS: PCP Emergency Medicine; Visit Provider Emergency Medicine
DX: D64.9 Anemia, unspecified (principal); R97.8 Other abnormal tumor markers
CPT/HCPCS: 86301

== ENCOUNTER 2021-05-11 11:43 | Outpatient (CLI) | payer MEDICARE, SELFPAY ==
--- NOTE | ~2021-05-11 | PE_ITS ---
EXAMINATION: PET skull to mid thigh DATE: 05/11/2021 13:42 INDICATION: Malignant neoplasm of colon. TECHNIQUE: Blood glucose level was 74 mg/dL. 8.732 mCi of 18-fluorodeoxyglucose (18-FDG) was administ ered i.v. Low dose computed tomography (CT) images were acquired from the base of the brain to the pr oximal thighs for attenuation correction and anatomic localization. Automated exposure control was em ployed. Dose-length product (DLP) was 258 mGy-cm. Positron emission tomography (PET) images were acqu ired in the same distribution. COMPARISON: CT abdomen and pelvis 04/06/2021 FINDINGS: Head/neck: There is increased activity in the oral cavity and major salivary glands without CT correl ate, likely physiologic. There are no pathologically enlarged lymph nodes. Chest: There is mild atelectasis bilaterally. Calcified bilateral lung nodules and calcified hilar an d mediastinal lymph nodes are consistent with old granulomatous disease. No pleural effusion. The hea rt size is normal. There are coronary artery calcifications. No pericardial effusion. Abdomen/pelvis/proximal thighs: The liver, gallbladder, spleen, pancreas, adrenal glands, and kidneys are normal. The prostate is moderately enlarged. The bladder is decompressed by a Larkin catheter. Th e colon is distended. The small bowel is normal in caliber. There are likely changes of right inguina l hernia repair. There are no pathologically enlarged lymph nodes. There is no free intraperitoneal f luid. There is no osseous malignancy. IMPRESSION: 1. No evidence of malignancy. 2. Persistently distended colon, likely adynamic ileus. Reviewed, dictated and finalized at location A.
[2021-05-11 12:17] LABS: Glucose Point of Care 74 mg/dl (65-105)
== END 2021-05-11 11:44 | disposition home or self-care (01) ==
LOC: ANHIMG 11:52
PROVIDERS: PCP Emergency Medicine; Visit Provider Internal Medicine Hematology & Oncology
DX: C18.6 Malignant neoplasm of descending colon (principal); K63.89 Other specified diseases of intestine
CPT/HCPCS: 78815; A9552

== ENCOUNTER 2021-08-22 15:27 | Inpatient (IN) | payer MEDICARE, SELFPAY ==
[2021-08-22] VITALS (14 sets, daily range): BP systolic 97–141; BP diastolic 49–128; PULSE 65–95; RESP 12–21; TEMP 36.1–36.4; O2SAT 91–100; BMI 17.3
--- NOTE | ~2021-08-22 | XR_ITS ---
EXAMINATION: XR chest 1V portable EXAM DATE: 08/23/2021 07:28 INDICATION: Shortness of breath, transient alteration of awareness. Colon cancer. TECHNIQUE: Portable AP frontal chest x-ray was obtained. Comparison is made to prior examination from 04/09/2021. FINDINGS: Severely distended air-filled viscus below the diaphragm elevating the diaphragm, low lung volume. There is adjacent atelectasis, could be segmental in the left lower lobe. There is significan t gaseous distention on prior x-ray and March, but this appears to have progressed compared to at exam. No pneumothorax. Cardiomediastinal silhouette is normal. Severe right glenohumeral osteoarth ritis. IMPRESSION: 1. Severely distended gas-filled colon, was moderately distended in March. Adynamic ileus? Corre late with prior CT reports. 2. Low lung volume with basilar atelectasis. Reviewed, dictated and finalized at location A. NG SPECIALIST IMPRESSION: 1. Severely distended gas-filled colon, was moderately distended in March. Adynamic ileus? Correlate with prior CT reports. 2. Low lung volume with basilar atelectasis.
--- NOTE | ~2021-08-22 | CT_ITS ---
EXAMINATION: CT brain wo con DATE: 08/22/2021 16:49 INDICATION: Altered mental status. TECHNIQUE: Computed tomography (CT) of the head was performed without intravenous contrast. The mA wa s adjusted according to patient size. Iterative reconstruction technique was employed. The dose-lengt h product was 605.33 mGy-cm. COMPARISON: Head CT 01/31/2021 FINDINGS: There are old infarcts in the cerebellum bilaterally. There is an old infarct in left occip ital lobe. There is an old infarct in right occipital lobe. There are scattered areas of low attenuat ion in the cerebral white matter. There is no intracranial hemorrhage, acute infarction, or abnormal intracranial mass lesion. The ventricles are normal in size. There are likely changes of ocular lens replacement surgeries. There is mild mucosal thickening in the paranasal sinuses. The mastoid air eb ls are normal. There is a 10 mm mass in left frontoparietal scalp, likely benign. IMPRESSION: 1. 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 2. Mild nonspecific cerebral white matter disease, which likely represents chronic small vessel ische tigre disease. Reviewed, dictated and finalized at location A. DRY WORKER APPRENTICE IMPRESSION: 1. 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 2. Mild nonspecific cerebral white matter disease, which likely represents waiter/waitress captain kennedy small vessel ischemic disease.
--- NOTE | ~2021-08-22 | MR_ITS ---
EXAMINATION: MR brain/brain stem wo con DATE: 08/23/2021 16:47 INDICATION: Altered mental status. TECHNIQUE: Magnetic resonance imaging (MRI) of the brain and brainstem was performed without intraven ous contrast. Sequences included sagittal and axial T1-weighted FSE, axial diffusion-weighted FS EPI, axial T2*-weighted GRE, axial T2-weighted FLAIR Propeller, and axial T2-weighted Propeller. Apparent diffusion coefficient (ADC) maps were created. COMPARISON: Head CT 08/22/2021 FINDINGS: Motion artifact is noted. There is no intracranial hemorrhage, acute infarction, or abnorma l intracranial mass lesion. There are old infarcts in the occipital lobes, left worse than right. The re are old infarcts in the cerebellum bilaterally. There are scattered areas of nonspecific increased T2-weighted signal intensity in the cerebral white matter. There is an old infarct in posterior righ t frontal lobe. The ventricles are normal in size. There are likely changes of ocular lens replacemen t surgeries. There is mild mucosal thickening in the paranasal sinuses. The mastoid air cells are nor mal. IMPRESSION: 1. Old infarcts in the cerebellum, occipital lobes, and posterior right frontal lobe. 2. Mild nonspecific cerebral white matter disease, which likely represents chronic small vessel ische itgre disease. Reviewed, dictated and finalized at location A. LING MACHINE OPERATOR IMPRESSION: 1. Old infarcts in the cerebellum, occipital lobes, and posterior right frontal lobe. 2. Mild nonspecific cerebral white matter disease, which likely represents trauma registrar kennedy small vessel ischemic disease.
--- NOTE | 2021-08-22 15:41 | ECG_ITS ---
Measurements Intervals [place] Rate: 81 P: 40 [place]: 165 QRS: 5 QRSD: 87 T: 35 QT: 357 QTc: 416 Interpretive Statements SINUS RHYTHM ATRIAL AND VENTRICULAR PREMATURE COMPLEXES DELAYED PRECORDIAL R/S TRANSITION LOW QRS VOLTAGE IN LIMB LEADS BORDERLINE T WAVE ABNORMALITY- ANTEROLAT/INF LEADS BASELINE ARTIFACT- I, II, III, AVR, AVL, AVF, V1-V6 BORDERLINE ECG Electronically Signed On 08-22-2021 16:22:21 QUICK PRINT OPERATOR by Johnie Fernandez D.O.
[2021-08-22 16:00] LABS: Basophils Absolute Auto 0.1 K/mm3 (0.0-0.1); Basophils Percent Auto 0.9 % (0.2-1.2); Eosinophils Absolute Auto 0.2 K/mm3 (0-0.3); Hematocrit 38.4 % (42.0-52.0); Hemoglobin 11.9 g/dL (14.0-18.0); Immature Granulocyte Absolute 0.03 K/mm3 (0.00-0.031); Immature Granulocyte Percent A 0.4 % (0-0.5); Lymphocytes Absolute Auto 1.55 K/mm3 (0.9-3.2); Mean Corpuscular Hemoglobin 32.2 pg (26-34); Mean Corpuscular Volume 104.1 fl (80-100); Monocytes Absolute Auto 0.7 K/mm3 (0.1-0.6); Monocytes Percent Auto 8.6 % (2.6-8.5); Neutrophils Absolute Auto 5.7 K/mm3 (1.3-6.7); Neutrophils Percent Auto 69.1 % (45.5-73.1); Platelet Count Result 335 k/mm3 (150-375); Red Blood Count 3.69 M/mm3 (4.6-6.20); Red Cell Distribution Width 14.9 % (11.5-14.5); White Blood Count 8.2 K/mm3 (4.5-10.0)
[2021-08-22 16:10] LABS: Prothrombin Time 13.5 Seconds (11.1-14.7)
[2021-08-22 16:11] LABS: Alanine Aminotransferase 18 U/L (4-50); Albumin Level 3.4 g/dL (3.5-5.1); Alkaline Phosphatase 101 U/L (38-126); Anion Gap 14 mmol/L (8-16); Aspartate Amino Transferase 38 U/L (17-59); Bilirubin,Total 0.6 mg/dL (0.2-1.3); Blood Urea Nitrogen 10 mg/dL (9-20); Calcium 9.1 mg/dL (8.4-10.2); Carbon Dioxide 23 mmol/L (22-30); Chloride 102 mmol/L (98-107); Estimated CRCL calculation 32 ml/min; Estimated Glomerular Filt Rate > 60; Glucose 100 mg/dL (65-110); Partial Thromboplastin Time 27.5 SECONDS (22.3-36.8); Potassium 3.9 mmol/L (3.4-5.0); Sodium 139 mmol/L (137-145)
[2021-08-22] MEDS: SODIUM CHLORIDE 0.9% IV 500 ML 999 ML IV CONT (16:50)
--- NOTE | 2021-08-22 16:55 | ED.GENADULT ---
HPI - General Adult General Chief complaint: Altered Mental Status Stated complaint: stroke like sx Time Seen by Provider: 08/22/21 16:29 Source: family, RN notes reviewed and old records reviewed Limitations: dementia History of Present Illness HPI narrative: 86-year-old male presents to the emergency department for evaluation of increased generalized weakness. Patient does live at home with his . states that she does help him to transport around the house. She states yesterday he was walking him to the bathroom and his legs got weak and he had to sit down on a stool to rest. She does describe him having some tremor and rigors last night. This morning when she was ambulating him again his legs once again gave out on him. Patient does have a history of colon cancer and colectomy when he was younger. Patient does have an indwelling Larkin catheter. Larkin catheter was placed to be changed out this week. Patient also has history of stroke. Related Data Allergies Allergy/AdvReac Type Severity Reaction Status Date / Time No Known Allergies Allergy Verified 08/22/21 15:42 Review of Systems Review of Systems: Patient is nonverbal ROS unobtainable: Yes unobtainable due to mental status PMFSH Past Medical History Medical History Colorectal cancer Dementia Hyperlipidemia TIA (transient ischemic attack) Surgical History Surgical History H/O transurethral resection of prostate Family History Family History Father Family history of malignant neoplasm Family history of respiratory disorder, Onset Age: 50 Patient's father is Mother Family history of transient ischemic attacks, Onset Age: 83 Family history of heart disease in male family member before age 55, Onset Age: 83 Patient's mother is Social History Social History Smoking status: Never smoker Alcohol intake: never Substance use: never Spiritual care concerns: No Exam Narrative: APPEARANCE: no distress HEAD: normocephalic, atraumatic. EYES: PERRLA/EOMI, conjunctivae clear. NOSE: Normal no drainage NECK: Supple. No adenopathy, no masses. RESPIRATORY: Airway patent, respirations nonlabored. Clear to auscultation bilaterally, no rales, rhonchi, wheezing. CARDIOVASCULAR: Regular rate and rhythm without murmurs rubs or gallops. ABDOMINAL: Soft, nontender, nondistended, normal bowel sounds MUSCULOSKELETAL: Moves all extremities. Strength/ROM intact, No edema, No calf tenderness. NEURO: Alert. Cranial nerves II through XII intact. SKIN: Warm, dry. Normal Color Course Course Emergency Course: Patient's Covid was negative. Patient's UA was concerning for urinary tract infection. All the old urine culture showed no growth. Patient was started on Rocephin. Urine culture is pending. 2 blood cultures are pending. Larkin catheter and leg bag were changed. Patient and patient's were updated the results of the work-up including labs and imaging and plan for admission and treatment. All questions and concerns were addressed. Discussed case with the hospitalist and patient was stable at time of admission. Vital Signs Vital signs: Vital Signs Temperature 97.6 F 08/22/21 15:31 Pulse Rate 95 08/22/21 15:31 Respiratory Rate 14 08/22/21 15:31 Blood Pressure 106/89 08/22/21 15:31 Pulse Oximetry 100 08/22/21 15:31 Temperature 97.0 F L 08/22/21 18:32 Pulse Rate 65 08/22/21 19:06 Respiratory Rate 14 08/22/21 19:06 Blood Pressure 138/82 08/22/21 19:06 Pulse Oximetry 96 08/22/21 19:06 Medical Decision Making Vital Signs Vital Signs: Vital Signs Temperature 97.6 F 08/22/21 15:31 Pulse Rate 95 08/22/21 15:31 Respiratory Rate 14 08/22/21 15:31
[2021-08-22 17:29] LABS: Add Urine Microscopic? YES; Appearance Urine Cloudy (Clear); Bacteria Urine Trace /hpf; Bilirubin Urine Negative (Negative); Blood Urine 2+ (Negative); Color Urine Yellow (Yellow); Glucose Urine UA Negative (Negative); Ketones Urine Trace mg/dL (Negative); Leukocyte Esterase Ur 3+ LEU/UL (Negative); Mucus Urine Few /lpf; Nitrate Urine Positive (Negative); Protein Urine 2+ mg/dL (Negative); Specific Grav Ur 1.016 (1.001-1.035); Squamous Epithelial Cell Urine Rare /hpf (Few); WBC Clumps Urine Present /HPF; WBC Urine >75 /hpf
[2021-08-22 17:42] LABS: SARS-CoV-2 RNA PCR Negative
--- NOTE | 2021-08-22 19:13 | PC.NURSE ---
patients catheter scheduled to be changed next week. 16fr bella catheter removed. well tolerated. 14fr coude placed under sterile technique, well tolerated. 16fr bella unable to be placed.
[2021-08-22] MEDS: SODIUM CHLORIDE 0.9% IV 1,000 ML 125 ML IV CONT (23:24)
--- NOTE | 2021-08-22 23:56 | ADMGEN ---
This patient, Regan Croft, was admitted to [facility] Surg Room 322-02 at 2215. Patient/family oriented to hospital policies and general routines including ID bracelet, bed and alarms, visiting hours, pain management, procedures, bathroom and other care routines, personal items, smoking policy, room service/diet, and visiting hours. Information on how to activate the Rapid Response Team has been discussed. Patient/Family are encouraged to report perceived risks to care and to ask questions if they do not understand what they are told or what they should do.
--- NOTE | 2021-08-23 02:48 | PM.IMHP ---
H&P: HPI History of Present Illness Date/Time: 08/23/21 02:48 Chief Complaint: Altered mental status Narrative: 86-year-old male presents from home where he lives at with his with increased generalized weakness and altered mental status. Patient is a poor historian and most of the history is taken from medical records. Patient is reported to have increasing generalized weakness and increasing tremors and rigors and hence brought him to the ER for evaluation. It has been more difficult to ambulate with his weakness and also tremors that he has been having. He has a chronic indwelling Larkin catheter and also has history of stroke. He also has a history of colon cancer status post colectomy when he was young. Patient on the mumbles during the visit today and review of system could not be obtained due to his mental status. He does have underlying history of dementia. In the ER he was swabbed for COVID which came back negative but UA was suggestive of urinary tract infection. He was started on Rocephin. Larkin catheter was changed in the ER. He is getting admitted for further treatment. Laboratory evaluation done in the ER was unremarkable. Head CT was done which showed old infarcts in the cerebellum and occipital lobes with mild nonspecific cerebral white matter disease which likely represents chronic small vessel ischemic disease. Review of Systems Review of Systems: ROS unobtainable: Yes unobtainable due to medical condition PMFSH Past Medical History Medical History Colorectal cancer Dementia Hyperlipidemia TIA (transient ischemic attack) Surgical History Surgical History H/O transurethral resection of prostate Family History Family History Father Family history of malignant neoplasm Family history of respiratory disorder, Onset Age: 50 Patient's father is Mother Family history of transient ischemic attacks, Onset Age: 83 Family history of heart disease in male family member before age 55, Onset Age: 83 Patient's mother is Social History Social History Smoking status: Never smoker Alcohol intake: never Substance use: never Substance use type: does not use Spiritual care concerns: No Meds Home Medications and Allergies Home Medications Medication Instructions Recorded Confirmed Type donepezil 10 mg DAILY 08/22/21 08/22/21 History memantine 10 mg PO BID 08/22/21 08/22/21 History Allergies Allergy/AdvReac Type Severity Reaction Status Date / Time No Known Allergies Allergy Verified 08/22/21 23:53 Vital Signs Vital Signs - 24 hr 08/22/21 15:31 08/22/21 15:41 08/22/21 16:00 Temperature 97.6 F Pulse Rate 95 81 Respiratory Rate 14 21 H 12 Blood Pressure 106/89 140/49 L Pulse Oximetry 100 100 94 08/22/21 16:15 08/22/21 16:30 08/22/21 16:49 Temperature Pulse Rate 77 81 82 Respiratory Rate 16 18 16 Blood Pressure Pulse Oximetry 91 92 08/22/21 16:50 08/22/21 17:00 08/22/21 17:30 Temperature Pulse Rate 78 88 71 Respiratory Rate 16 21 H 16 Blood Pressure 141/128 H Pulse Oximetry 96 98 99 08/22/21 17:32 08/22/21 17:45 08/22/21 18:32 Temperature 97.0 F L Pulse Rate 74 83 74 Respiratory Rate 18 20 13 Blood Pressure 136/84 134/78 Pulse Oximetry 99 08/22/21 19:06 08/22/21 22:38 Temperature 97.0 F L Pulse Rate 65 76 Respiratory Rate 14 17 Blood Pressure 138/82 97/67 L Pulse Oximetry 96 91 Exam Narrative: APPEARANCE: Patient altered awake but mumbles tremulous with intermittent jerky movement in his upper extremities noted HEAD: normocephalic, atraumatic. EYES: PERRLA/EOMI, conjunctivae clear. NOSE: Normal no drainage NECK: Supple. No adenopathy, no masses. RESPIRATO
[2021-08-23 05:56] VITALS: BP 129/72; PULSE 74; RESP 18; TEMP 36.4; O2SAT 95
[2021-08-23 08:08] LABS: Basophils Absolute Auto 0.1 K/mm3 (0.0-0.1); Basophils Percent Auto 1.1 % (0.2-1.2); Eosinophils Absolute Auto 0.2 K/mm3 (0-0.3); Eosinophils Percent Auto 3.6 % (0-4.4); Hematocrit 31.8 % (42.0-52.0); Hemoglobin 10.2 g/dL (14.0-18.0); Immature Granulocyte Absolute 0.02 K/mm3 (0.00-0.031); Immature Granulocyte Percent A 0.3 % (0-0.5); Lymphocytes Absolute Auto 1.08 K/mm3 (0.9-3.2); Lymphocytes Percent Auto 16.3 % (18.3-44.2); Mean Corpuscular HGB Conc 32.1 g/dl (32-36); Mean Corpuscular Volume 99.7 fl (80-100); Mean Platelet Volume 9.4 fl (7.4-10.4); Monocytes Absolute Auto 0.7 K/mm3 (0.1-0.6); Monocytes Percent Auto 10.5 % (2.6-8.5); Neutrophils Absolute Auto 4.5 K/mm3 (1.3-6.7); Neutrophils Percent Auto 68.2 % (45.5-73.1); Platelet Count Result 283 k/mm3 (150-375); Red Blood Count 3.19 M/mm3 (4.6-6.20); Red Cell Distribution Width 14.6 % (11.5-14.5); White Blood Count 6.6 K/mm3 (4.5-10.0)
[2021-08-23 08:15] LABS: Ammonia < 9 umol/L (9-30)
[2021-08-23 08:23] LABS: Alanine Aminotransferase 13 U/L (4-50); Albumin Level 2.7 g/dL (3.5-5.1); Alkaline Phosphatase 95 U/L (38-126); Anion Gap 8 mmol/L (8-16); Aspartate Amino Transferase 27 U/L (17-59); Bilirubin,Total 0.6 mg/dL (0.2-1.3); Blood Urea Nitrogen 9 mg/dL (9-20); Calcium 8.5 mg/dL (8.4-10.2); Carbon Dioxide 22 mmol/L (22-30); Chloride 107 mmol/L (98-107); Estimated CRCL calculation 35 ml/min; Estimated Glomerular Filt Rate > 60; Glucose 82 mg/dL (65-110); Potassium 3.6 mmol/L (3.4-5.0); Sodium 137 mmol/L (137-145)
--- NOTE | 2021-08-23 09:25 | PCCCNOTE ---
On 08/23/21, the student, [ Beatrice Doan], provided care and completed [facility] on this [facility]. I have reviewed the student's documentation and agree with the findings.
[2021-08-23] MEDS: ENOXAPARIN 40 MG/0.4 ML SYRINGE SUB-Q (09:34)
[2021-08-23] MEDS: MEMANTINE 10 MG TABLET PO ×2 (09:34→17:52)
[2021-08-23 10:10] VITALS: BMI 10.0
--- NOTE | 2021-08-23 10:49 | PCSTNOTE ---
Bedside Swallow Evaluation attempted; patient exhibited poor ability to participate and is at great risk for aspiration. Cannot recommend oral feedings. Nursing should complete oral care as patient has dry mouth. Monitor for improved ability to participate. Resume St when patient is able.
[2021-08-23 14:00] VITALS: BP 153/72; PULSE 94; RESP 16; TEMP 37; O2SAT 94
[2021-08-23 14:06] VITALS: BMI 17.3
[2021-08-23] MEDS: SODIUM CHLORIDE 0.9% IV 1,000 ML 75 ML IV CONT (14:07)
--- NOTE | 2021-08-23 14:24 | PM.IMPN ---
Progress Note: A&P Assessment and Plan (1) Acute metabolic encephalopathy: Code(s): G93.41 - Metabolic encephalopathy Status: Acute Assessment and Plan: # acute encephalopathy CTA head with old infarcts no acute abnormality likely metabolic with underlying UTI. Continue to monitor. His hemoglobin is 11.9 might be hemoconcentrated/dehydrated as his baseline hemoglobin runs around 9 from previous records. Gentle IV hydration. Check lactic acid level check ammonia level. He has been pancultured to rule out any underlying sepsis/bacteremia # checking MRI brain, hx of stroke (2) Acute UTI: Code(s): N39.0 - Urinary tract infection, site not specified Status: Acute Assessment and Plan: -urinary tract infection likely source of his infection -Rocephin -follow urine culture and blood culture (3) Dehydration: Code(s): E86.0 - Dehydration Status: Acute Assessment and Plan: - dehydration gentle IV fluid - lactate normal (4) Dementia: Qualifiers: Dementia type: unspecified type Dementia behavioral disturbance: without behavioral disturbance Qualified Code(s): F03.90 - Unspecified dementia without behavioral disturbance Code(s): F03.90 - Unspecified dementia without behavioral disturbance Status: Acute Assessment and Plan: -continue home meds Subjective Date/time seen: 08/23/21 14:24 Interval history: 86 yo male w/ hx of dementia, colon cancer s/p colectomy, stroke, chronic indwelling bella, admitted for generalized weakness and AMS. Pt does not respond to any of my questions today. Not following commands. Alert. Further hx limited secondary to mental status. Review of Systems Review of Systems: ROS unobtainable: Yes unobtainable due to mental status Exam Narrative: General: No acute distress, chronically ill appearing, alert, mumbles at times but not discernable, intermittent jerky movements in upper exremities noted Eyes: PERRL, no scleral icterus HEENT: NCAT, external ears normal, MMM Respiratory: No respiratory distress, Lungs CTA bilaterally, no wheezing Cardiovascular: RRR, no murmur Abdominal: Soft, nontender, non distended, no rebound or guarding Musculoskeletal: Moves all 4 extremities, no edema Neurological: A/Ox0, no facial asymmetry, not responding to questions or following commands Skin: Warm, dry, multiple bruises noted in his upper extremities Psychiatric: Confused Objective Data Vital Signs Vital Signs: Vital Signs - 24 hr 01/25/22 15:31 08/22/21 15:41 08/22/21 16:00 Temperature 97.6 F Pulse Rate 95 81 Respiratory Rate 14 21 H 12 Blood Pressure 106/89 140/49 L Pulse Oximetry 100 100 94 08/22/21 16:15 08/22/21 16:30 08/22/21 16:49 Temperature Pulse Rate 77 81 82 Respiratory Rate 16 18 16 Blood Pressure Pulse Oximetry 91 92 08/22/21 16:50 08/22/21 17:00 08/22/21 17:30 Temperature Pulse Rate 78 88 71 Respiratory Rate 16 21 H 16 Blood Pressure 141/128 H Pulse Oximetry 96 98 99 08/22/21 17:32 08/22/21 17:45 08/22/21 18:32 Temperature 97.0 F L Pulse Rate 74 83 74 Respiratory Rate 18 20 13 Blood Pressure 136/84 134/78 Pulse Oximetry 99 08/22/21 19:06 08/22/21 22:38 08/23/21 05:56 Temperature 97.0 F L 97.5 F L Pulse Rate 65 76 74 Respiratory Rate 14 17 18 Blood Pressure 138/82 97/67 L 129/72 Pulse Oximetry 96 91 95 Intake/Output Intake/Output: Intake & Output 08/20/21 08/21/21 08/22/21 08/23/21 23:59 23:59 23:59 23:59 Intake Total 550 1000 Output Total 350 Balance 550 650 Meds/Results Medications: Active Medications Generic Name Dose Route Start Last Admin Trade Name Freq PRN Reason Stop Dose Admin Donepezil HCl 10 mg 08/23/21 18:00 Donepezil Hcl 10 Mg Tablet BY MOUTH EVENING MARILYNN Enoxaparin Sodium 40 mg 08/23/21 09:00 08/23/21 09:34 Enoxaparin 40 Mg/0.4 Ml Syringe SUB-Q 40 mg NEREIDA
[2021-08-23] MEDS: DONEPEZIL HCL 10 MG TABLET BY MOUTH (17:52)
[2021-08-23 20:10] VITALS: PULSE 58; RESP 18; O2SAT 95
[2021-08-23 21:40] VITALS: BP 104/84; PULSE 58; RESP 18; TEMP 36.5; O2SAT 95
[2021-08-24] MEDS: SODIUM CHLORIDE 0.9% IV 1,000 ML 75 ML IV CONT ×2 (04:57→21:21)
[2021-08-24 06:00] VITALS: BP 108/82; PULSE 61; RESP 18; TEMP 36.4; O2SAT 96
[2021-08-24] MEDS: MEMANTINE 10 MG TABLET PO ×2 (09:35→17:31)
[2021-08-24] MEDS: ENOXAPARIN 40 MG/0.4 ML SYRINGE SUB-Q (09:35)
[2021-08-24 14:00] VITALS: BP 110/58; PULSE 63; RESP 18; TEMP 36.7; O2SAT 92
--- NOTE | 2021-08-24 14:41 | PM.IMPN ---
Progress Note: A&P Assessment and Plan (1) Acute metabolic encephalopathy: Code(s): G93.41 - Metabolic encephalopathy Status: Acute Assessment and Plan: # acute encephalopathy CTA head with old infarcts no acute abnormality # likely metabolic with underlying UTI. His hemoglobin is 11.9 might be hemoconcentrated/dehydrated as his baseline hemoglobin runs around 9 from previous records. Gentle IV hydration. Lactic acid level WNL. He has been pancultured to rule out any underlying sepsis/bacteremia # MRI brain shows old infarcts in the cerebellum, occipital lobes, and posterior right frontal lobe. (2) Acute UTI: Code(s): N39.0 - Urinary tract infection, site not specified Status: Acute Assessment and Plan: -urinary tract infection likely source of his infection -Rocephin -follow urine culture and blood culture (3) Dehydration: Code(s): E86.0 - Dehydration Status: Acute Assessment and Plan: - dehydration gentle IV fluid - lactate normal (4) Dementia: Qualifiers: Dementia type: unspecified type Dementia behavioral disturbance: without behavioral disturbance Qualified Code(s): F03.90 - Unspecified dementia without behavioral disturbance Code(s): F03.90 - Unspecified dementia without behavioral disturbance Status: Acute Assessment and Plan: -continue home meds Additional Plan bedside swallow study completed, pt at high risk for aspiration so was placed NPO. For now he is on IVF, will re assess as mental status hopefully improves with IV abx to treat the UTI Subjective Date/time seen: 08/24/21 14:41 Interval history: 86 yo male w/ hx of dementia, colon cancer s/p colectomy, stroke, chronic indwelling bella, admitted for generalized weakness and AMS. Pt alert to person today. Not answering any other questions appropriately. Further hx limited secondary to mental status. Review of Systems Review of Systems: ROS unobtainable: Yes unobtainable due to mental status Exam Narrative: General: No acute distress, chronically ill appearing, alert, mumbles at times but not discernable Eyes: PERRL, no scleral icterus HEENT: NCAT, external ears normal, MMM Respiratory: No respiratory distress, Lungs CTA bilaterally, no wheezing Cardiovascular: RRR, no murmur Abdominal: Soft, nontender, non distended, no rebound or guarding Musculoskeletal: Moves all 4 extremities, no edema Neurological: A/Ox1, no facial asymmetry, not responding to questions or following commands Skin: Warm, dry, multiple bruises noted in his upper extremities Psychiatric: Confused Objective Data Vital Signs Vital Signs: Vital Signs - 24 hr 08/23/21 20:10 08/23/21 21:40 08/24/21 06:00 Temperature 97.7 F 97.6 F Pulse Rate 58 L 58 L 61 Respiratory Rate 18 18 18 Blood Pressure 104/84 108/82 Pulse Oximetry 95 95 96 Intake/Output Intake/Output: Intake & Output 08/21/21 08/22/21 08/23/21 08/24/21 23:59 23:59 23:59 23:59 Intake Total 550 1050 1000 Output Total 550 150 Balance 550 500 850 Meds/Results Medications: Active Medications Generic Name Dose Route Start Last Admin Trade Name Freq PRN Reason Stop Dose Admin Donepezil HCl 10 mg 08/23/21 18:00 08/23/21 17:52 Donepezil Hcl 10 Mg Tablet BY MOUTH 10 mg EVENING MARILYNN Administration Enoxaparin Sodium 40 mg 08/23/21 09:00 08/24/21 09:35 Enoxaparin 40 Mg/0.4 Ml Syringe SUB-Q 40 mg DAILY MARILYNN Administration Sodium Chloride 1,000 mls @ 75 mls/hr 08/22/21 19:30 08/24/21 04:57 Normal Saline Iv IV CONT 75 mls/hr .[id number] MARILYNN Administration Ceftriaxone Sodium/Dextrose 1 gm in 50 mls @ 100 mls/hr 08/23/21 18:00 08/23/21 19:47 Rocephin 1 Gm/D5w 50 Ml IVPB Infused Q24H MARILYNN Infusion Memantine 10 mg 08/23/21 09:00 08/24/21 09:35 Memantine 10 Mg Tablet PO 10 mg BID MARILYNN Administration Radiology Results: ITS Impre
--- NOTE | 2021-08-24 17:06 | PCSTNOTE ---
Patient was offered thin liquid and applesauce to follow up with recommendations from yesterday. He exhibited no signs of aspiration. Therapist spoke with nurse who will speak with [facility], about resuming at least a pureed diet possibly and regular liquids.
[2021-08-24] MEDS: DONEPEZIL HCL 10 MG TABLET BY MOUTH (17:31)
[2021-08-24 20:25] VITALS: PULSE 69; RESP 18; O2SAT 99
[2021-08-24 20:30] LABS: Basophils Percent Auto 0.4 % (0.2-1.2); Eosinophils Absolute Auto 0.1 K/mm3 (0-0.3); Hematocrit 38.7 % (42.0-52.0); Hemoglobin 11.7 g/dL (14.0-18.0); Immature Granulocyte Absolute 0.02 K/mm3 (0.00-0.031); Immature Granulocyte Percent A 0.3 % (0-0.5); Lymphocytes Absolute Auto 1.31 K/mm3 (0.9-3.2); Lymphocytes Percent Auto 18.5 % (18.3-44.2); Mean Corpuscular HGB Conc 30.2 g/dl (32-36); Mean Corpuscular Hemoglobin 32.3 pg (26-34); Mean Corpuscular Volume 106.9 fl (80-100); Mean Platelet Volume 9.7 fl (7.4-10.4); Monocytes Percent Auto 13.7 % (2.6-8.5); Neutrophils Absolute Auto 4.7 K/mm3 (1.3-6.7); Neutrophils Percent Auto 66.1 % (45.5-73.1); Platelet Count Result 317 k/mm3 (150-375); Red Blood Count 3.62 M/mm3 (4.6-6.20); Red Cell Distribution Width 15.2 % (11.5-14.5); White Blood Count 7.1 K/mm3 (4.5-10.0)
[2021-08-24 20:40] LABS: Alanine Aminotransferase 11 U/L (4-50); Albumin Level 2.7 g/dL (3.5-5.1); Alkaline Phosphatase 84 U/L (38-126); Anion Gap 9 mmol/L (8-16); Aspartate Amino Transferase 28 U/L (17-59); Bilirubin,Total 0.7 mg/dL (0.2-1.3); Blood Urea Nitrogen 12 mg/dL (9-20); Calcium 8.6 mg/dL (8.4-10.2); Carbon Dioxide 17 mmol/L (22-30); Chloride 114 mmol/L (98-107); Estimated CRCL calculation 39 ml/min; Estimated Glomerular Filt Rate > 60; Glucose 84 mg/dL (65-110); Potassium 4.1 mmol/L (3.4-5.0); Sodium 140 mmol/L (137-145)
[2021-08-24 22:00] VITALS: BP 139/50; PULSE 69; RESP 18; TEMP 36.6; O2SAT 99
[2021-08-25 06:00] VITALS: BP 136/74; PULSE 66; RESP 16; TEMP 36.1; O2SAT 99
[2021-08-25 08:00] VITALS: PULSE 66; RESP 16; O2SAT 99
[2021-08-25] MEDS: ENOXAPARIN 40 MG/0.4 ML SYRINGE SUB-Q (10:00)
[2021-08-25] MEDS: MEMANTINE 10 MG TABLET PO ×2 (10:00→17:27)
--- NOTE | 2021-08-25 11:57 | PM.IMPN ---
Progress Note: A&P Assessment and Plan (1) Acute metabolic encephalopathy: Code(s): G93.41 - Metabolic encephalopathy Status: Acute Assessment and Plan: # acute encephalopathy CTA head with old infarcts no acute abnormality # likely metabolic with underlying UTI. His hemoglobin is 11.9 might be hemoconcentrated/dehydrated as his baseline hemoglobin runs around 9 from previous records. Gentle IV hydration. Lactic acid level WNL. He has been pancultured to rule out any underlying sepsis/bacteremia # MRI brain shows old infarcts in the cerebellum, occipital lobes, and posterior right frontal lobe. (2) Acute UTI: Code(s): N39.0 - Urinary tract infection, site not specified Status: Acute Assessment and Plan: -urinary tract infection likely source of his infection -Rocephin -follow urine culture and blood culture urine culture negative, however UA very indicitive of UTI with positive nitrates, 3+ leukocytes, and >75 WBCs. Pt is also improving clinically with the rocephin. Will repeat urine culture and continue rocephin for now and he has been improving clinically with it. (3) Dehydration: Code(s): E86.0 - Dehydration Status: Acute Assessment and Plan: - dehydration gentle IV fluid - lactate normal (4) Dementia: Qualifiers: Dementia behavioral disturbance: without behavioral disturbance Dementia type: unspecified type Qualified Code(s): F03.90 - Unspecified dementia without behavioral disturbance Code(s): F03.90 - Unspecified dementia without behavioral disturbance Status: Acute Assessment and Plan: -continue home meds Additional Plan -bedside swallow study completed, pt at high risk for aspiration so was placed NPO. For now he is on IVF, will re assess as mental status hopefully improves with IV abx to treat the UTI -repeat swallow study recommends pureed diet, he was switched to this and IVF decreased Subjective Date/time seen: 08/25/21 11:57 Interval history: 86 yo male w/ hx of dementia, colon cancer s/p colectomy, stroke, chronic indwelling bella, admitted for generalized weakness and AMS. Pt alert to person today. Not answering any other questions appropriately. Further hx limited secondary to mental status. Review of Systems Review of Systems: ROS unobtainable: Yes unobtainable due to mental status Exam Narrative: General: No acute distress, chronically ill appearing, alert, somnolent but arousable Eyes: PERRL, no scleral icterus HEENT: NCAT, external ears normal, MMM Respiratory: No respiratory distress, Lungs CTA bilaterally, no wheezing Cardiovascular: RRR, no murmur Abdominal: Soft, nontender, non distended, no rebound or guarding Musculoskeletal: Moves all 4 extremities, no edema Neurological: A/Ox1, no facial asymmetry, not following commands Skin: Warm, dry, multiple bruises noted in his upper extremities Psychiatric: Confused Objective Data Vital Signs Vital Signs: Vital Signs - 24 hr 08/24/21 14:00 08/24/21 20:25 08/24/21 22:00 Temperature 98.1 F 97.8 F Pulse Rate 63 69 69 Respiratory Rate 18 18 18 Blood Pressure 110/58 L 139/50 L Pulse Oximetry 92 99 99 08/25/21 06:00 08/25/21 08:00 Temperature 97 F L Pulse Rate 66 66 Respiratory Rate 16 16 Blood Pressure 136/74 Pulse Oximetry 99 99 Intake/Output Intake/Output: Intake & Output 08/22/21 08/23/21 08/24/21 08/25/21 23:59 23:59 23:59 23:59 Intake Total 550 1050 2020 0 Output Total 550 550 150 Balance 174 786 [id number] -150 Meds/Results Medications: Active Medications Generic Name Dose Route Start Last Admin Trade Name Freq PRN Reason Stop Dose Admin Donepezil HCl 10 mg 08/23/21 18:00 08/24/21 17:31 Donepezil Hcl 10 Mg Tablet BY MOUTH 10 mg EVENING MARILYNN Administration Enoxaparin Sodium 40 mg 08/23/21 09:00 08/25/21 10:00 Enoxaparin 40 Mg/0.4 Ml Syringe SUB-Q 40 mg NEREIDA
[2021-08-25] MEDS: SODIUM CHLORIDE 0.9% IV 1,000 ML 75 ML IV CONT (13:20)
[2021-08-25 14:00] VITALS: BP 130/41; PULSE 84; RESP 18; TEMP 36.5; O2SAT 90
--- NOTE | 2021-08-25 14:33 | PCNFU ---
Nutrition Follow-Up Complete: Inadequte oral intake related to UTI and AMS as evidenced by NPO status Goal: Pt to meet 75% of nutritional needs Pt is slowly progressing towards goal Pt current nutrition is Pureed,L4/regular diet Last recorded weight is 47.3 kg. Bowel Motility: No new BM reported Labs Reviewed: hgb 11.7, hct 38.7, alb 2.7, Cl 114, CO2 17 Meds Noted: lovenox, namenda Skin: No new skin breakdown at this time. WNL Additional Notes: Unable to visit with pt due to pt being confused. Current nutrition is pureed,L4/regular diet with reported intake of 10%. Spoke to nursing via phone who confirms intake. RDN placed orders for dietary supplement of Ensure Enlive BID to provide an additional 350kcal and 20g of protein to increase caloric intake. Nursing staff has been notified and agrees to continue to encourage intake of regular diet and dietary supplements. Agree with diet order at this time. Will continue to follow. Will monitor medication, labs, wt, and reported intake every 3 days
[2021-08-25 17:07] LABS: Add Urine Microscopic? YES; Appearance Urine Cloudy (Clear); Bacteria Urine Trace /hpf; Bilirubin Urine Negative (Negative); Blood Urine 3+ (Negative); Color Urine Yellow (Yellow); Glucose Urine UA Negative (Negative); Hyaline Casts Urine 15-19 /lpf; Ketones Urine 2+ mg/dL (Negative); Leukocyte Esterase Ur Negative LEU/UL (Negative); Mucus Urine Few /lpf; Nitrate Urine Negative (Negative); Protein Urine 2+ mg/dL (Negative); RBC Urine >75 /hpf (0-2); Specific Grav Ur 1.023 (1.001-1.035); Squamous Epithelial Cell Urine Rare /hpf (Few); WBC Urine 0-3 /hpf
[2021-08-25] MEDS: DONEPEZIL HCL 10 MG TABLET BY MOUTH (17:27)
[2021-08-25 20:00] VITALS: O2SAT 96
[2021-08-25 22:00] VITALS: BP 116/60; PULSE 70; RESP 16; TEMP 36.5; O2SAT 96
[2021-08-26] MEDS: SODIUM CHLORIDE 0.9% IV 1,000 ML 75 ML IV CONT (04:39)
[2021-08-26 05:13] VITALS: BP 130/68; PULSE 68; RESP 16; TEMP 36.1; O2SAT 98
[2021-08-26 05:24] VITALS: O2SAT 97
[2021-08-26 07:37] LABS: Basophils Absolute Auto 0.1 K/mm3 (0.0-0.1); Eosinophils Absolute Auto 0.2 K/mm3 (0-0.3); Eosinophils Percent Auto 4.1 % (0-4.4); Hematocrit 33.8 % (42.0-52.0); Hemoglobin 10.4 g/dL (14.0-18.0); Immature Granulocyte Absolute 0.02 K/mm3 (0.00-0.031); Immature Granulocyte Percent A 0.4 % (0-0.5); Lymphocytes Absolute Auto 1.25 K/mm3 (0.9-3.2); Lymphocytes Percent Auto 24.3 % (18.3-44.2); Mean Corpuscular HGB Conc 30.8 g/dl (32-36); Mean Corpuscular Hemoglobin 32.3 pg (26-34); Mean Platelet Volume 9.7 fl (7.4-10.4); Monocytes Absolute Auto 0.6 K/mm3 (0.1-0.6); Monocytes Percent Auto 11.1 % (2.6-8.5); Neutrophils Absolute Auto 3.1 K/mm3 (1.3-6.7); Neutrophils Percent Auto 59.1 % (45.5-73.1); Platelet Count Result 303 k/mm3 (150-375); Red Blood Count 3.22 M/mm3 (4.6-6.20); Red Cell Distribution Width 15.5 % (11.5-14.5); White Blood Count 5.2 K/mm3 (4.5-10.0)
[2021-08-26 08:00] VITALS: PULSE 68; RESP 16; O2SAT 97
[2021-08-26 09:37] LABS: Anion Gap 4 mmol/L (8-16); Blood Urea Nitrogen 13 mg/dL (9-20); Calcium 8.5 mg/dL (8.4-10.2); Carbon Dioxide 19 mmol/L (22-30); Chloride 118 mmol/L (98-107); Estimated CRCL calculation 39 ml/min; Estimated Glomerular Filt Rate > 60; Glucose 68 mg/dL (65-110); Potassium 3.7 mmol/L (3.4-5.0); Sodium 141 mmol/L (137-145)
--- NOTE | 2021-08-26 09:52 | PM.DS ---
DS: Admitting Diagnosis Discharge Date 08/26/21 Admitting Diagnosis AMS, UTI DS: Discharge Diagnosis Discharge Diagnosis (1) Acute metabolic encephalopathy: Code(s): G93.41 - Metabolic encephalopathy Status: Acute Assessment and Plan: # acute encephalopathy CTA head with old infarcts no acute abnormality # MRI brain shows old infarcts in the cerebellum, occipital lobes, and posterior right frontal lobe. # likely metabolic with underlying UTI # pt is currently awake and alert and at his baseline mental status (2) Acute UTI: Code(s): N39.0 - Urinary tract infection, site not specified Status: Acute Assessment and Plan: -urinary tract infection likely source of his infection -IV Rocephin -urine culture negative, however UA very indicitive of UTI with positive nitrates, 3+ leukocytes, and >75 WBCs. Pt is also improving clinically with the rocephin so this was continued -will send home with Cefdinir to complete 7 day treatment -no leukocytosis or fevers to suggests sepsis. Blood cultures negative to date. Pt currently back to his baseline mental status. (3) Dehydration: Code(s): E86.0 - Dehydration Status: Acute Assessment and Plan: - dehydration gentle IV fluid - lactate normal -resolved, normal PO intake at this time now that mental status is improved (4) Dementia: Qualifiers: Dementia behavioral disturbance: without behavioral disturbance Dementia type: unspecified type Qualified Code(s): F03.90 - Unspecified dementia without behavioral disturbance Code(s): F03.90 - Unspecified dementia without behavioral disturbance Status: Acute Assessment and Plan: -continued home meds -currently as his baseline per conversations with his daughter Neeilma. They are ready to take him home today and his home health agency has added PT/OT on to his current services. DS: Summary Hospital Course Reason for hospitalization: 86 yo male w/ hx of dementia, colon cancer s/p colectomy, stroke, chronic indwelling bella, admitted for UTI and AMS. Please see HPI for further details. Hospital Course: Please see above for details of hospital course. Status at Discharge Cognitive/behavioral status at discharge: stable Functional status at discharge: wheelchair bound Overall status at discharge: patient is progressing back to baseline Time Spent with Patient Time attestation: Total time spent providing and/or coordinating discharge services: 32 Time spent: Greater than 30 minutes Exam Narrative: General: No acute distress, chronically ill appearing, alert, somnolent but arousable Eyes: PERRL, no scleral icterus HEENT: NCAT, external ears normal, MMM Respiratory: No respiratory distress, Lungs CTA bilaterally, no wheezing Cardiovascular: RRR, no murmur Abdominal: Soft, nontender, non distended, no rebound or guarding Musculoskeletal: Moves all 4 extremities, no edema Neurological: A/Ox1, no facial asymmetry, not following commands Skin: Warm, dry, multiple bruises noted in his upper extremities Psychiatric: Confused DS: Data Data Completed and Pending Labs on day of discharge: Labs from last 24 hours 08/26/21 08/26/21 08/26/21 07:08 07:08 07:08 WBC 5.2 RBC 3.22 L Hgb 10.4 L Hct 33.8 L MCV 105.0 H MCH 32.3 MCHC 30.8 L RDW 15.5 H Plt Count 303 MPV 9.7 Immature Gran % (Auto) 0.4 Neut % (Auto) 59.1 Lymph % (Auto) 24.3 Brooke % (Auto) 11.1 H Eos % (Auto) 4.1 Baso % (Auto) 1.0 Lymph # (Auto) 1.25 Brooke # (Auto) 0.6 Eos # (Auto) 0.2 Baso # (Auto) 0.1 Abs Immat Gran (auto) 0.02 Absolute Neuts (auto) 3.1 Absolute Nucleated RBC 0.0 Nucleated RBC % 0.0 Sodium 141 Potassium 3.7 Chloride 118 H Carbon Dioxide 19 L Anion Gap 4 L BUN 13 Creatinine 0.80 Estim Creat Clear Calc 39 Estimated GFR > 60 Glucose 68 Mika
[2021-08-26] MEDS: ENOXAPARIN 40 MG/0.4 ML SYRINGE SUB-Q (09:56)
[2021-08-26] MEDS: MEMANTINE 10 MG TABLET PO (09:56)
[2021-08-26 10:05] LABS: Carcinoembryonic Antigen 7.4 ng/mL (0.0-3.0)
[2021-08-26 14:00] VITALS: BP 109/61; PULSE 73; RESP 16; TEMP 37; O2SAT 98
[2021-08-30 07:09] LABS: CA 19-9 40 U/mL (<34)
--- NOTE | 2021-09-05 08:56 | PC.NURSE ---
Blood cx are negative. Carcinoembryonic Ag is elevated at 7.4 CA 19-9 Antigen is elevated at 40. Results faxed to Dr. Duff
== END 2021-08-26 14:50 | disposition home health service (06) | DRG 698 ==
LOC: ANHED 19:28 → ANH3MEDSUR 20:45
PROVIDERS: Physician Assistant; Admitting Provider Internal Medicine; Emergency Provider Emergency Medicine; PCP Emergency Medicine; Visit Provider Hospitalist
DX: T83.511A Infection and inflammatory reaction due to indwelling urethral catheter, initial encounter (principal); G93.41 Metabolic encephalopathy; N39.0 Urinary tract infection, site not specified; E86.0 Dehydration; F03.90 Unspecified dementia, unspecified severity, without behavioral disturbance, psychotic disturbance, mood disturbance, and anxiety; E78.5 Hyperlipidemia, unspecified; Z20.822 Contact with and (suspected) exposure to COVID-19; Z85.038 Personal history of other malignant neoplasm of large intestine; Z86.73 Personal history of transient ischemic attack (TIA), and cerebral infarction without residual deficits
CPT/HCPCS: 36415; 70450; 70551; 71045; 80048; 80053; 81001; 82140; 82378; 83605; 85025; 85610; 85730; 86301; 87040; 87086; 87088; 92610; 93005; 96361; 96365; 96366; 96372; 97110; 97162; 97167; 97530; 99285; A9270; C9803; G0378; J0696; J1650; J7030; J7040; U0003; U0005

== ENCOUNTER 2021-09-19 12:37 | Outpatient (NON) | payer MEDICARE, SELFPAY | END 2021-09-19 12:38 | disposition home or self-care (01) | LOC: HOME HLTH 12:39 | PROVIDERS: PCP Emergency Medicine; Visit Provider Nurse Practitioner Adult Health | DX: D64.9 Anemia, unspecified (principal); F03.90 Unspecified dementia, unspecified severity, without behavioral disturbance, psychotic disturbance, mood disturbance, and anxiety; G20 Parkinson's disease; N39.0 Urinary tract infection, site not specified | CPT/HCPCS: 87086; 87088; 87106 ==

== ENCOUNTER 2021-09-19 17:20 | Outpatient (NON) | payer MEDICARE, SELFPAY ==
[2021-09-19 23:35] LABS: Basophils Absolute Auto 0.1 K/mm3 (0.0-0.1); Basophils Percent Auto 1.5 % (0.2-1.2); Eosinophils Absolute Auto 0.4 K/mm3 (0-0.3); Hematocrit 34.2 % (42.0-52.0); Hemoglobin 10.6 g/dL (14.0-18.0); Immature Granulocyte Absolute 0.02 K/mm3 (0.00-0.031); Immature Granulocyte Percent A 0.3 % (0-0.5); Lymphocytes Absolute Auto 1.26 K/mm3 (0.9-3.2); Lymphocytes Percent Auto 21.5 % (18.3-44.2); Mean Corpuscular Hemoglobin 32.8 pg (26-34); Mean Corpuscular Volume 105.9 fl (80-100); Mean Platelet Volume 10.5 fl (7.4-10.4); Monocytes Absolute Auto 0.5 K/mm3 (0.1-0.6); Neutrophils Absolute Auto 3.6 K/mm3 (1.3-6.7); Neutrophils Percent Auto 60.7 % (45.5-73.1); Platelet Count Result 257 k/mm3 (150-375); Red Blood Count 3.23 M/mm3 (4.6-6.20); Red Cell Distribution Width 14.8 % (11.5-14.5); White Blood Count 5.9 K/mm3 (4.5-10.0)
[2021-09-19 23:48] LABS: Alanine Aminotransferase 9 U/L (4-50); Albumin Level 2.8 g/dL (3.5-5.1); Alkaline Phosphatase 58 U/L (38-126); Anion Gap 3 mmol/L (8-16); Aspartate Amino Transferase 27 U/L (17-59); Bilirubin,Total 0.4 mg/dL (0.2-1.3); Blood Urea Nitrogen 15 mg/dL (9-20); Calcium 8.8 mg/dL (8.4-10.2); Carbon Dioxide 28 mmol/L (22-30); Chloride 105 mmol/L (98-107); Estimated Glomerular Filt Rate > 60; Glucose 73 mg/dL (65-110); Potassium 3.5 mmol/L (3.4-5.0); Sodium 136 mmol/L (137-145)
[2021-09-20 00:14] LABS: Carcinoembryonic Antigen 8.7 ng/mL (0.0-3.0)
== END 2021-09-19 17:21 | disposition home or self-care (01) ==
PROVIDERS: PCP Emergency Medicine; Visit Provider Internal Medicine Hematology & Oncology
DX: C18.9 Malignant neoplasm of colon, unspecified (principal); D64.9 Anemia, unspecified; F03.90 Unspecified dementia, unspecified severity, without behavioral disturbance, psychotic disturbance, mood disturbance, and anxiety; G20 Parkinson's disease
CPT/HCPCS: 80053; 82378; 85025; 87086; 87088; 87106

== ENCOUNTER 2021-10-17 13:02 | Outpatient (NON) | payer MEDICARE, SELFPAY ==
[2021-10-17 13:25] LABS: Basophils Absolute Auto 0.1 K/mm3 (0.0-0.1); Eosinophils Absolute Auto 0.3 K/mm3 (0-0.3); Eosinophils Percent Auto 4.7 % (0-4.4); Hematocrit 40.5 % (42.0-52.0); Hemoglobin 12.4 g/dL (14.0-18.0); Immature Granulocyte Absolute 0.02 K/mm3 (0.00-0.031); Immature Granulocyte Percent A 0.3 % (0-0.5); Lymphocytes Absolute Auto 1.16 K/mm3 (0.9-3.2); Lymphocytes Percent Auto 18.9 % (18.3-44.2); Mean Corpuscular HGB Conc 30.6 g/dl (32-36); Mean Corpuscular Hemoglobin 32.1 pg (26-34); Mean Corpuscular Volume 104.9 fl (80-100); Mean Platelet Volume 10.3 fl (7.4-10.4); Monocytes Absolute Auto 0.5 K/mm3 (0.1-0.6); Monocytes Percent Auto 7.3 % (2.6-8.5); Neutrophils Absolute Auto 4.2 K/mm3 (1.3-6.7); Neutrophils Percent Auto 67.8 % (45.5-73.1); Platelet Count Result 268 k/mm3 (150-375); Red Blood Count 3.86 M/mm3 (4.6-6.20); Red Cell Distribution Width 14.2 % (11.5-14.5); White Blood Count 6.2 K/mm3 (4.5-10.0)
[2021-10-17 13:32] LABS: Alanine Aminotransferase 10 U/L (4-50); Albumin Level 3.4 g/dL (3.5-5.1); Alkaline Phosphatase 58 U/L (38-126); Anion Gap 7 mmol/L (8-16); Aspartate Amino Transferase 24 U/L (17-59); Bilirubin,Total 0.3 mg/dL (0.2-1.3); Blood Urea Nitrogen 21 mg/dL (9-20); Calcium 9.2 mg/dL (8.4-10.2); Carbon Dioxide 26 mmol/L (22-30); Chloride 109 mmol/L (98-107); Estimated Glomerular Filt Rate > 60; Glucose 109 mg/dL (65-110); Potassium 3.5 mmol/L (3.4-5.0); Sodium 142 mmol/L (137-145)
== END 2021-10-17 13:03 | disposition home or self-care (01) ==
PROVIDERS: PCP Emergency Medicine; Visit Provider Emergency Medicine
DX: D64.9 Anemia, unspecified (principal); F03.90 Unspecified dementia, unspecified severity, without behavioral disturbance, psychotic disturbance, mood disturbance, and anxiety; G20 Parkinson's disease; Z46.6 Encounter for fitting and adjustment of urinary device
CPT/HCPCS: 80053; 85025

== ENCOUNTER 2022-04-05 11:55 | Outpatient (NON) | payer MEDICARE, SELFPAY ==
[2022-04-05 12:35] LABS: Basophils Absolute Auto 0.1 K/mm3 (0.0-0.1); Basophils Percent Auto 0.9 % (0.2-1.2); Eosinophils Absolute Auto 0.4 K/mm3 (0-0.3); Eosinophils Percent Auto 7.3 % (0-4.4); Hematocrit 37.2 % (42.0-52.0); Hemoglobin 11.7 g/dL (14.0-18.0); Immature Granulocyte Absolute 0.03 K/mm3 (0.00-0.031); Immature Granulocyte Percent A 0.5 % (0-0.5); Lymphocytes Percent Auto 28.6 % (18.3-44.2); Mean Corpuscular HGB Conc 31.5 g/dl (32-36); Mean Corpuscular Hemoglobin 33.5 pg (26-34); Mean Corpuscular Volume 106.6 fl (80-100); Mean Platelet Volume 10.3 fl (7.4-10.4); Monocytes Absolute Auto 0.5 K/mm3 (0.1-0.6); Monocytes Percent Auto 8.9 % (2.6-8.5); Neutrophils Percent Auto 53.8 % (45.5-73.1); Platelet Count Result 240 k/mm3 (150-375); Red Blood Count 3.49 M/mm3 (4.6-6.20); White Blood Count 5.6 K/mm3 (4.5-10.0)
[2022-04-05 12:45] LABS: Alanine Aminotransferase 11 U/L (6-50); Alkaline Phosphatase 51 U/L (38-126); Anion Gap 6 mmol/L (8-16); Aspartate Amino Transferase 26 U/L (17-59); Bilirubin,Total 0.3 mg/dL (0.2-1.3); Blood Urea Nitrogen 15 mg/dL (9-20); Calcium 9.1 mg/dL (8.4-10.2); Carbon Dioxide 25 mmol/L (22-30); Chloride 106 mmol/L (98-107); Estimated Glomerular Filt Rate 58; Glucose 79 mg/dL (65-110); Potassium 3.9 mmol/L (3.4-5.0); Sodium 137 mmol/L (137-145)
[2022-04-05 13:16] LABS: Carcinoembryonic Antigen 10.6 ng/mL (0.0-3.0)
== END 2022-04-05 11:56 | disposition home or self-care (01) ==
LOC: ANHLAB 12:01
PROVIDERS: PCP Emergency Medicine; Visit Provider Internal Medicine Hematology & Oncology
DX: C18.9 Malignant neoplasm of colon, unspecified (principal)
CPT/HCPCS: 36415; 80053; 82378; 85025

== ENCOUNTER 2022-11-05 10:59 | Outpatient (NON) | payer MEDICARE, SELFPAY ==
[2022-11-05 12:24] LABS: Basophils Absolute Auto 0.1 K/mm3 (0.0-0.1); Eosinophils Absolute Auto 0.3 K/mm3 (0-0.3); Eosinophils Percent Auto 4.6 % (0-4.4); Hematocrit 36.6 % (42.0-52.0); Hemoglobin 11.8 g/dL (14.0-18.0); Immature Granulocyte Absolute 0.03 K/mm3 (0.00-0.031); Immature Granulocyte Percent A 0.5 % (0-0.5); Lymphocytes Absolute Auto 1.58 K/mm3 (0.9-3.2); Lymphocytes Percent Auto 26.6 % (18.3-44.2); Mean Corpuscular HGB Conc 32.2 g/dl (32-36); Mean Corpuscular Volume 105.5 fl (80-100); Mean Platelet Volume 10.6 fl (7.4-10.4); Monocytes Absolute Auto 0.6 K/mm3 (0.1-0.6); Monocytes Percent Auto 9.6 % (2.6-8.5); Neutrophils Absolute Auto 3.4 K/mm3 (1.3-6.7); Neutrophils Percent Auto 57.7 % (45.5-73.1); Platelet Count Result 223 k/mm3 (150-375); Red Blood Count 3.47 M/mm3 (4.6-6.20); White Blood Count 5.9 K/mm3 (4.5-10.0)
[2022-11-05 12:35] LABS: Macrocytosis 2+ (NORMAL); Platelet Estimate Adequate (Adequate)
[2022-11-05 12:36] LABS: Schistocytes None Seen (NORMAL)
[2022-11-05 12:52] LABS: Alanine Aminotransferase 12 U/L (6-50); Alkaline Phosphatase 48 U/L (38-126); Anion Gap 0 mmol/L (8-16); Aspartate Amino Transferase 30 U/L (17-59); Bilirubin,Total 0.8 mg/dL (0.2-1.3); Blood Urea Nitrogen 16 mg/dL (9-20); Calcium 8.8 mg/dL (8.4-10.2); Carbon Dioxide 30 mmol/L (22-30); Chloride 105 mmol/L (98-107); Cholesterol 132 mg/dL (0-200); Estimated Glomerular Filt Rate > 60; Glucose 72 mg/dL (65-110); HDL Direct 38 mg/dL; LDL Cholesterol Direct 76 mg/dL; Potassium 3.9 mmol/L (3.4-5.0); Sodium 135 mmol/L (137-145); Triglycerides 95 mg/dL (<150)
== END 2022-11-05 11:00 | disposition home or self-care (01) ==
LOC: ANHLAB 11:00
PROVIDERS: PCP Emergency Medicine; Visit Provider Emergency Medicine
DX: R41.82 Altered mental status, unspecified (principal); D64.9 Anemia, unspecified; E78.5 Hyperlipidemia, unspecified
CPT/HCPCS: 36415; 80053; 80061; 85025

== ENCOUNTER 2023-05-02 12:46 | Outpatient (NON) | payer MEDICARE, SELFPAY ==
[2023-05-02 13:16] LABS: Alanine Aminotransferase 15 U/L (6-50); Albumin Level 3.4 g/dL (3.5-5.1); Alkaline Phosphatase 73 U/L (38-126); Anion Gap 5 mmol/L (8-16); Aspartate Amino Transferase 33 U/L (17-59); Bilirubin,Total 0.7 mg/dL (0.2-1.3); Blood Urea Nitrogen 14 mg/dL (9-20); Calcium 9.2 mg/dL (8.4-10.2); Carbon Dioxide 28 mmol/L (22-30); Chloride 102 mmol/L (98-107); Estimated Glomerular Filt Rate > 60; Glucose 85 mg/dL (65-110); Potassium 3.8 mmol/L (3.4-5.0); Sodium 135 mmol/L (137-145)
== END 2023-05-02 12:47 | disposition home or self-care (01) ==
LOC: HOME HLTH 12:47
PROVIDERS: PCP Emergency Medicine; Visit Provider Emergency Medicine
DX: E87.6 Hypokalemia (principal)
CPT/HCPCS: 80053

== ENCOUNTER 2023-07-02 12:17 | Emergency (ER) | payer MEDICARE, SELFPAY ==
[2023-07-02 12:18] VITALS: BP 128/77; PULSE 80; RESP 16; TEMP 36.8; O2SAT 100
--- NOTE | 2023-07-02 14:12 | ED.GENADULT ---
HPI - General Adult General Chief complaint: Urogenital-Male Stated complaint: unable to replace catheter Time Seen by Provider: 07/02/23 13:50 History of Present Illness HPI narrative: 88-year-old male with longstanding history of urinary retention and indwelling Larkin catheter presents to the emergency department for evaluation after home health was unable to replace the Larkin catheter. Patient does have a history of dementia and parkinsons and is at his normal baseline. Patient has been having worsening prostate issues and is currently followed by urology. Patient is currently on antibiotic for a UTI. Related Data Home Medications Medication Instructions Recorded Confirmed ferrous sulfate 325 mg (65 mg 325 mg PO DAILY 10/18/21 05/07/23 iron) tablet Allergies Allergy/AdvReac Type Severity Reaction Status Date / Time No Known Allergies Allergy Verified 07/02/23 13:34 Review of Systems Review of Systems: All systems reviewed & are unremarkable except as noted in HPI and below PMFSH Past Medical History Medical History Colorectal cancer Dementia Hyperlipidemia TIA (transient ischemic attack) Surgical History Surgical History H/O transurethral resection of prostate Family History Family History Father Family history of malignant neoplasm Family history of respiratory disorder, Onset Age: 50 Patient's father is Mother Family history of transient ischemic attacks, Onset Age: 83 Family history of heart disease in male family member before age 55, Onset Age: 83 Patient's mother is Social History Social History (Updated 05/07/23 @ 14:07 by Doris Whitten MA) Smoking status: Never smoker Alcohol intake: never Substance use: never Substance use type: does not use Current Housing: Decline to Answer Concerned About Future Housing: Decline to Answer Difficulty Paying Gas/Electric Bills: Decline to Answer Difficulty Paying for Meds: Decline to Answer Currently Unemployed: Decline to Answer Education: Decline to Answer Difficulty w/ Childcare or Family Care: Decline to Answer Spiritual care concerns: No Exam Narrative: APPEARANCE: patient resting comfortably with no complaints HEAD: normocephalic, atraumatic. EYES: PERRLA/EOMI, conjunctivae clear. NOSE: Normal no drainage EARS:TMS clear with good light reflex. THROAT: Pharynx clear, no exudate. NECK: Supple. No adenopathy, no masses. RESPIRATORY: Airway patent, respirations nonlabored. Clear to auscultation bilaterally, no rales, rhonchi, wheezing. CARDIOVASCULAR: Regular rate and rhythm without murmurs rubs or gallops. ABDOMINAL: Soft, nontender, nondistended, normal bowel sounds MUSCULOSKELETAL: Moves all extremities. Strength/ROM intact, No edema, No calf tenderness. NEURO: Alert. Cranial nerves II through XII intact. Grossly intact SKIN: Warm, dry. Normal Color Course Course Emergency Course: 88-year-old male present to the ED for evaluation of a Larikn catheter issue. Patient had his Larkin catheter replaced in the emergency department. Patient is currently on antibiotics per the patient's son. Patient was encouraged to have close follow-up with Urology. Patient is established with [facility]. urine culture was ordered. Vital Signs Vital signs: Vital Signs Temperature 98.3 F 07/02/23 12:18 Pulse Rate 80 07/02/23 12:18 Respiratory Rate 16 07/02/23 12:18 Blood Pressure 128/77 07/02/23 12:18 Pulse Oximetry 100 07/02/23 12:18 Temperature 98.3 F 07/02/23 12:18 Pulse Rate 75 07/02/23 15:20 Respiratory Rate 15 07/02/23 15:20 Blood Pressure 128/73 07/02/23 15:20 Pulse Oximetry 98 07/02/23 15:20 Medical Decision Making Vital Signs Vital S
--- NOTE | 2023-07-02 14:26 | PC.NURSE ---
Bella catheter place with MD Patino verbal order. patient from home with chronic bella.
[2023-07-02 14:40] LABS: Appearance Urine Turbid (Clear); Bacteria Urine None Seen /hpf; Bilirubin Urine Negative (Negative); Blood Urine 3+ (Negative); Color Urine Dark Yellow (Yellow); Glucose Urine UA Negative (Negative); Ketones Urine Negative (Negative); Leukocyte Esterase Ur 2+ LEU/UL (Negative); Need Manual Microscopic Reviewed; Nitrate Urine Negative (Negative); Protein Urine 3+ mg/dL (Negative); RBC Urine >100 /hpf (0-2); Specific Grav Ur 1.019 (1.001-1.035); Squamous Epithelial Cell Urine None seen /hpf (Few); WBC Urine >100 /hpf; pH Urine 6.5 (5.0-9.0)
[2023-07-02 14:42] LABS: Add Urine Microscopic? YES
[2023-07-02 15:20] VITALS: BP 128/73; PULSE 75; RESP 15; O2SAT 98
== END 2023-07-02 15:22 | disposition home or self-care (01) ==
PROVIDERS: Emergency Provider Emergency Medicine; PCP Emergency Medicine
DX: T83.091A Other mechanical complication of indwelling urethral catheter, initial encounter (principal); N39.0 Urinary tract infection, site not specified; F03.90 Unspecified dementia, unspecified severity, without behavioral disturbance, psychotic disturbance, mood disturbance, and anxiety; E78.5 Hyperlipidemia, unspecified; Z86.73 Personal history of transient ischemic attack (TIA), and cerebral infarction without residual deficits; Y84.6 Urinary catheterization as the cause of abnormal reaction of the patient, or of later complication, without mention of misadventure at the time of the procedure
CPT/HCPCS: 51702; 81001; 87086; 99283

== ENCOUNTER 2024-02-27 10:49 | Outpatient (NON) | payer MEDICARE, SELFPAY | END 2024-02-27 10:50 | disposition home or self-care (01) | LOC: ANHLAB 10:52 | PROVIDERS: PCP Emergency Medicine; Visit Provider Emergency Medicine | DX: F03.90 Unspecified dementia, unspecified severity, without behavioral disturbance, psychotic disturbance, mood disturbance, and anxiety (principal); R33.8 Other retention of urine; G20.A1 Parkinson's disease without dyskinesia, without mention of fluctuations; Z46.6 Encounter for fitting and adjustment of urinary device | CPT/HCPCS: 87086; 87088 ==

== ENCOUNTER 2024-05-03 15:43 | Inpatient (IN) | payer MEDICARE, SELFPAY ==
[2024-05-03] VITALS (35 sets, daily range): BP systolic 54–114; BP diastolic 38–78; PULSE 84–117; RESP 13–93; TEMP 36.2; O2SAT 18–100
--- NOTE | ~2024-05-03 | XR_ITS ---
EXAMINATION: XR chest port-a-cath/central Exam Date/Time: 05/03/2024 21:40 CDT HISTORY: CENTRAL LINE PLACEMENT Comparison: Same date at 8:55 PM. FINDINGS/IMPRESSION: No central line identified in the [id number]. Stable endotracheal tube, pulmonary opacities, and bowel dilation. Results reported telephonically to Dr. Pickens by Dr. Cartwright at 10:10 PM on 05/03/2024. Reviewed, dictated and finalized at location K.
--- NOTE | ~2024-05-03 | XR_ITS ---
Upright portable view of of the abdomen Clinical history: The OG tube placement Findings: NG tube in satisfactory position. Extensive air distended bowel loops are present. No defin ite free air. No abnormal mass lesion or calcification is seen. Osseous structures are intact. Impression: OG tube in satisfactory position. Extensive air distended large and small bowel. Reviewed, dictated and finalized at location . Impression: OG tube in satisfactory position. Extensive air distended large and small bowel .
--- NOTE | ~2024-05-03 | CT_ITS ---
EXAMINATION: CT brain wo con DATE: 05/03/2024 19:26 INDICATION: AMS . TECHNIQUE: Computed tomography (CT) of the head was performed without intravenous contrast. The mA wa s adjusted according to patient size. Iterative reconstruction technique was employed. The dose-lengt h product was 605.33 mGy-cm. COMPARISON: 08/22/2021. FINDINGS: No acute intracranial hemorrhage or extra-axial fluid collection. No hydrocephalus, mass, or herniation. No acute ischemic infarct. Unremarkable dural venous sinus attenuation. No acute osseous abnormality. Right sphenoid air-fluid level, the remaining aerated spaces are clear. Moderate atrophy and mild chronic white matter change. Atherosclerotic intracranial calcification. Bi lateral lens replacements. 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 Focal right occipital encephalomalacia may also represent old infarct. Focal old bilateral cerebellar hemisphere infarcts. IMPRESSION: No acute intracranial process. Acute right sphenoid sinusitis Reviewed, dictated and finalized at location K.
--- NOTE | ~2024-05-03 | CT_ITS ---
EXAMINATION: CT chest abdomen pelvis w con DATE: 05/03/2024 19:26 INDICATION: sepsis, possible mass, cancer . TECHNIQUE: Computed tomography (CT) of the chest, abdomen, and pelvis was performed with 100 mL Omnip aque-350 intravenous contrast. Automated exposure control and iterative reconstruction technique were employed. The dose-length product was 370.20 mGy-cm. COMPARISON: X-ray chest, same date; CT abdomen pelvis 04/06/2021 FINDINGS: CHEST: Thoracic aorta: No significant dilation. No dissection. Lung parenchyma and airways: Bilateral dependent and medial lower lobe consolidation. Bilateral upper lobe segmental groundglass opacities with associated centrilobular consolidation in the right upper lobe. A few additional scattered centrilobular groundglass opacities present bilaterally. Minimal air way debris in bilateral lower lobe bronchi. Thoracic inlet, axillae and chest wall: Endotracheal tube providing 2.2 cm above the kali. No thyro id or soft tissue mass. No axillary lymphadenopathy. Mediastinum: No mass or lymphadenopathy. Dilated central pulmonary arteries as can be seen with pulmo nary arterial hypertension. Segmental and subsegmental occlusive and nonocclusive bilateral upper lob e pulmonary emboli. Heart and pericardium: Normal heart size. Aortic valve calcification. RV/LV ratio 1.2. No pericardial effusion. Coronary artery calcifications: Heavy. Pleura: No effusion or mass. Thoracic bones: No acute osseous finding in the chest. ABDOMEN/PELVIS: Liver: Diffuse fatty infiltration. Biliary/Gallbladder: Gallbladder is normal. No bile duct dilation. Pancreas: No mass or duct dilation. Spleen: Normal. Adrenals:No mass. Kidneys: No suspicious mass, obstructing stone, or hydronephrosis mild bilateral renal cortical thinn ing. Simple right midpole cyst.. GI tract: Moderate distal esophageal and gastric wall edema. no small bowel dilation. Marked diffuse large bowel dilation, improved since the prior examination. Normal appendix. Mesentery/Peritoneum: No ascites, mass, or free air. Retroperitoneum: No mass Atherosclerotic abdominal aortic and/or arterial calcifications. Pelvis: The urinary bladder is decompressed by Larkin catheter. Prostatomegaly Soft Tissues: Soft tissues and body wall unremarkable. Abdominopelvic bones: No acute osseous finding in the abdomen/pelvis. IMPRESSION: Bilateral upper lobe segmental and subsegmental pulmonary emboli. Moderate clot burden. RV/LV ratio 1 .2. Bilateral upper lobe pulmonary opacities may represent pulmonary infarcts. Infection/aspiration could appear similarly and are not excluded. Bilateral medial and basilar consolidation probably representing a component of aspiration given the location and presence of bilateral lower lobe airway debris. Moderate esophagitis/gastritis. Hepatic steatosis. Diffuse large bowel dilation, likely chronic colonic ileus. Reviewed, dictated and finalized at [facility]. IMPRESSION: Bilateral upper lobe segmental and subsegmental pulmonary emboli. Moderate clot burden. RV/LV ratio 1.2. Bilateral upper lobe pulmonary opacities may represent pulmonary infarcts. Infe ction/aspiration could appear similarly and are not excluded. Bilateral medial and basilar consolidation probably representing a component of aspiration given the location and presence of bilateral lower lobe airway debr is. Moderate esophagitis/gastritis. Hepatic steatosis. Diffuse large bowel dilation, likely chronic colonic ileus.
--- NOTE | ~2024-05-03 | XR_ITS ---
EXAMINATION: XR chest 1V portable Exam Date/Time: 05/03/2024 17:20 CDT HISTORY: respiratory distress Comparison: 08/23/2021. RESULT: Lines, tubes, and devices: Endotracheal tube terminates 3.2 cm above the kali. Lungs and pleura: Ill-defined patchy segmental groundglass right upper lung and right midlung opacit ies. Streaky segmental left basilar airspace opacity. Cardiomediastinal silhouette: Stable. Other: Dilated bowel loops in the upper abdomen, increased from the comparison study. No acute osseo us finding. IMPRESSION: Endotracheal tube terminates 3.2 cm above the kali. Patchy bilateral groundglass opacities opacitie s, may represent edema or infection. Segmental left basilar atelectasis/consolidation. Multiple loops of dilated likely large bowel in the upper abdomen which is a chronic finding but appe ars to have increased since the prior study. Reviewed, dictated and finalized at location K. IMPRESSION: Endotracheal tube terminates 3.2 cm above the kali. Patchy bilateral groundgl ass opacities opacities, may represent edema or infection. Segmental left basil ar atelectasis/consolidation. Multiple loops of dilated likely large bowel in the upper abdomen which is a ch ronic finding but appears to have increased since the prior study.
--- NOTE | ~2024-05-03 | XR_ITS ---
EXAMINATION: XR chest 1V portable Exam Date/Time: 05/03/2024 20:47 CDT HISTORY: R/O PNEUMO Comparison: CT cap and x-ray chest, same date. FINDINGS/IMPRESSION: Endotracheal tube terminates 2.7 cm above the kali. Stable pulmonary opacities. No pneumothorax. St able dilated loops of large bowel in the upper abdomen. Reviewed, dictated and finalized at location K.
--- NOTE | 2024-05-03 15:48 | ECG_ITS ---
Test Date: 2024-05-03 15:55:50 Measurements Intervals [place] Rate: 131 P: 42 GA: 160 QRS: 69 QRSD: 78 T: 31 QT: 313 QTc: 463 Interpretive Statements SINUS TACHYCARDIA INDETERMINATE AXIS PATTERN CONSISTENT WITH PULMONARY DISEASE artifact No previous ECG available for comparison Electronically Signed On 05-03-2024 16:04:08 CDT by Og Chiu M.D.
[2024-05-03] MEDS: RAPID SEQUENCE INTUBATION KIT 1 EACH (16:15)
[2024-05-03 16:27] LABS: Basophils Absolute Auto 0.1 K/mm3 (0.0-0.1); Basophils Percent Auto 0.3 % (0.2-1.2); Hematocrit 40.1 % (42.0-52.0); Hemoglobin 12.6 g/dL (14.0-18.0); Immature Granulocyte Percent A 0.5 % (0-0.5); Lymphocytes Absolute Auto 1.51 K/mm3 (0.9-3.2); Lymphocytes Percent Auto 7.7 % (18.3-44.2); Mean Corpuscular HGB Conc 31.4 g/dl (32-36); Mean Corpuscular Hemoglobin 35.7 pg (26-34); Mean Corpuscular Volume 113.6 fl (80-100); Mean Platelet Volume 12.1 fl (7.4-10.4); Monocytes Absolute Auto 1.1 K/mm3 (0.1-0.6); Monocytes Percent Auto 5.6 % (2.6-8.5); Neutrophils Absolute Auto 16.9 K/mm3 (1.3-6.7); Neutrophils Percent Auto 85.9 % (45.5-73.1); Platelet Count Result 183 k/mm3 (150-375); Red Blood Count 3.53 M/mm3 (4.6-6.20); Red Cell Distribution Width 13.9 % (11.5-14.5); White Blood Count 19.7 K/mm3 (4.5-10.0)
[2024-05-03 16:32] LABS: Alveolar/Arterial O2 Gradient 438.4 mmHg; Base Excess ABG 0.6 mEq/l (+/-2.0); Carboxyhemoglobin 0.2 % THb (0-2.0); Fractional Inspired Oxygen 100 %; HCO3 ABG 23.7 mEq/l (22.0-26.0); Methemoglobin ABG 0.3 %THb (0-1.5); Oxygen Content ABG 18.3 %vol (16.0-22.0); Oxygen Saturation ABG 99.6 % (95.0-100.0); Oxyhemoglobin 99.1 % THb (90.0-100.0); PCO2 ABG 33.6 mmHg (35.0-45.0); PO2 FiO2 Ratio Arterial Blood 2.41 %; Reduced Hemoglobin 0.4 %THb (0-5.0); Total Hemoglobin 12.7 g/dL (12.0-18.0); pH ABG 7.467 (7.350-7.450)
[2024-05-03 16:34] LABS: Device VENTILATOR; Modified Allen's Test Pass; Site Drawn RIGHT RADIAL
[2024-05-03 16:35] LABS: Arterial Blood Gas PEEP 5 cmH2O; Arterial Blood Gas Tidal Volume 450 ml; Arterial Blood Gas Vent Mode CMV; Arterial Blood Gas Ventilator rate 18 /MIN
[2024-05-03] MEDS: SODIUM CHLORIDE 0.9% IV 1,000 ML 999 ML IV CONT ×2 (16:35→20:15)
--- NOTE | 2024-05-03 16:36 | ED_ITS ---
HPI - SOB/Dyspnea General Chief Complaint: Shortness of Breath/Dyspnea Stated Complaint: resp distress Source: family, EMS, RN notes reviewed and old records reviewed Mode of arrival: EMS Limitations: clinical condition History of Present Illness HPI Narrative: This is an 89 year old male with dementia who presents from home for evaluation of respiratory distress. His , daughter and son are at bedside. They report that patient seems to be been unable to swallow his secretions since . They have been feeding him liquid diet with syringe into his mouth because it seems he has forgotten to swallow. He started having difficulty breathing on but it became severe today. He is unable to give any history. S ambulance brought patient in for distress. They report patient was 70% on room air and they placed him on 12 L Oxygen.They were able to suction and get oxygen saturation to 89%. They also gave albuterol neb treatment. Related Data Home Medications Medication Instructions Recorded Confirmed ferrous sulfate 325 mg (65 mg 325 mg PO DAILY 10/18/21 05/03/24 iron) tablet cephalexin 250 mg capsule 250 mg PO DAILY 05/03/24 05/03/24 donepezil 10 mg tablet 10 mg PO DAILY 05/03/24 05/03/24 memantine 10 mg tablet 10 mg PO BID 05/03/24 05/03/24 Allergies Allergy/AdvReac Type Severity Reaction Status Date / Time No Known Allergies Allergy Verified 05/03/24 22:27 Review of Systems Review of Systems: ROS unobtainable: Yes unobtainable due to medical condition and unobtainable due to mental status PMFSH Past Medical History Medical History Acute UTI Colorectal cancer Dementia Dysuria Fatigue Hyperlipidemia Late onset Alzheimer disease TIA (transient ischemic attack) Toenail fungus Vitamin D deficiency Surgical History Surgical History H/O transurethral resection of prostate Family History Family History Father Family history of malignant neoplasm Family history of respiratory disorder, Onset Age: 50 Patient's father is Mother Family history of transient ischemic attacks, Onset Age: 83 Family history of heart disease in male family member before age 55, Onset Age: 83 Patient's mother is Social History Social History Smoking status: Never smoker Alcohol intake: never Substance use: never Substance use type: does not use Current Housing: Decline to Answer Concerned About Future Housing: Decline to Answer Difficulty Paying Gas/Electric Bills: Decline to Answer Difficulty Paying for Meds: Decline to Answer Currently Unemployed: Decline to Answer Education: Decline to Answer Difficulty w/ Childcare or Family Care: Decline to Answer Spiritual care concerns: No Exam Const: General: ill appearing acutely Nutritional Appearance: thin Limitations: altered mental status HENMT: Mouth: Yes lip normal Throat: uvula midline Eyes: Pupils: Equal, round and reactive pupils present EOM: EOMs intact bilaterally Resp: Effort & Inspection: labored and tachypneic Auscultation: rhonchi Other: respiratory distress Cardio: Rate: tachycardic Rhythm: regular rhythm Heart sounds: Murmur he art sound present GI: GI Palp: Yes Soft to palpation, No Tenderness to palpation present (GI), No Guarding due to palpation present (GI) and No Rigid due to palpation Auscultation: normal bowel sounds Skin: General skin exam: pallor Neuro: Other: unable to assess neuro, garbled speech Extrem: General: no pedal edema Course Reevaluation(s) Reevaluation #1: Patient presented in respiratory distress. HE has been intubated. Family at bed side. I spoke with family about patient poor condition and prognosis. They would like patient to be full code . I discussed PE, aspiration pneumonia. Date: 05/03/24 Time: 20:23 Consultations Consultation #1: I spoke with Dr. Russell who accepts patient to ICU Date: 05/03/24 Time: 20:10 Consultation #2: I spoke with Dr. Knight who accepts to service to ICU. Agrees with managment Date: 05/03/24 Time: 20:15 Vital Signs Vital signs: Vital Signs Respiratory Rate 25 H 05/03/24 15:43 Pulse Oximetry 98 05/03/24 15:43 Oxygen Delivery Non-Rebreather Mask 05/03/24 15:43 Oxygen Flow Rate 12 05/03/24 15:43 Temperature 97.1 F L 05/03/24 17:41 Pulse Rate 99 05/03/24 23:14 Respiratory Rate 18 05/03/24 23:14 Blood Pressure 99/68 L 05/03/24 23:14 Pulse Oximetry 100 05/03/24 23:14 Oxygen Delivery Mechanical Ventilation 05/03/24 22:34 Oxygen Flow Rate 12 05/03/24 15:48 Fraction of Inspired Oxygen 60 05/03/24 22:34 Procedures Central Line Placement Right IJ: Central Line Date: 05/03/24 Central Line Time: 20:30 Discussed w/ the patient/family/POA,the placement of a central venous catheter, including its clinical necessity/indication & associated potential risks, benifits and alternatives.: Yes The patient/family/POA understand(s) and acknowledge(s) the need to proceed with central venous catheter insertion as an important element of the patient's clinical management.: Yes Time Out Performed: Yes Patient Placed on Monitor/Pulse Ox: Yes Max. Sterile Barrier Technique: Caps, large sterile sheet and hand hygiene Central Line Prep: 2% chlorhexidine scrub and sterile drapes applied Technique: US-Guided Complications: other (I attempted to placed right IJ CVL. I was unable to get guidewire through the CV catheter port, it became kinked. CVL aborted. Applied pressure , no bleeding and chest xray ordered to assess for pneumothorax, no pneumothorax seen. My attempted for placement was unsuccessful. ) Intubation Intubation #1: Intubation Time: 16:40 sedative: Etomidate Mg Given: 20 paralytic: Succinylcholine Mg Given: 100 Laryngoscope: fiber optic video scope Tube Size (cm): 7.5 Method of Intubation: orotracheal Number of Attempts: 1 Tube Secured Depth (cm): 25 Tube Secured Location: lips Tube Placement Confirmation: visualized tube passing through cords, equal breath sounds bilaterally, no breath sounds over epigastrium and confirmation by capnometry Patient Tolerated Procedure: well Intubation Complications: none MDM - SOB/Dyspnea MDM Narrative Medical decision making narrative: Patient presented in respiratory distress likely with aspiration pneumonia. PAtient unable to tolerate secretions. Family reports patient full code so he wa s intubation. Started on IV fluids and labs, EKG, chest xray. PAtient with leukocytosis so antibiotics started. Hospitalist notified about patient. Once BP decreased attempted CVL but unsuccessful. Dr. Knight notified and she will placed central line. Differential Diagnosis Differential diagnosis: Likely congestive heart failure, community acquired pneumonia, pulmonary embolism and other (aspiration pneumonia, advanced demen tia, obstruction, UTI, ) Medical Records Attestation: I reviewed the patient's medical records. Lab Data Attestation: I reviewed the patient's lab results. 05/03/24 16:22 05/03/24 18:19 Labs: Lab Results 05/03/24 05/03/24 05/03/24 Range/Units 15:52 16:22 18:19 WBC 19.7 H (4.5-10.0) K/mm3 RBC 3.53 L (4.6-6.20) M/mm3 Hgb 12.6 L (14.0-18.0) g/dL Hct 40.1 L (42.0-52.0) % MCV 113.6 H (80-100) fl MCH 35.7 H (26-34) pg MCHC 31.4 L (32-36) g/dl RDW 13.9 (11.5-14.5) % Plt Count 183 (150-375) k/mm3 MPV 12.1 H (7.4-10.4) fl Immature Gran % (Auto) 0.5 (0-0.5) % Neut % (Auto) 85.9 H (45.5-73.1) % Lymph % (Auto) 7.7 L (18.3-44.2) % [place] % (Auto) 5.6 (2.6-8.5) % Eos % (Auto) 0.0 (0-4.4) % Baso % (Auto) 0.3 (0.2-1.2) % Lymph # (Auto) 1.51 (0.9-3.2) K/mm3 [place] # (Auto) 1.1 H (0.1-0.6) K/mm3 Eos # (Auto) 0.0 (0-0.3) K/mm3 Baso # (Auto) 0.1 (0.0-0.1) K/mm3 Abs Immat Gran (auto) 0.10 H (0.00-0.031) K/mm3 Absolute Neuts (auto) 16.9 H (1.3-6.7) K/mm3 Absolute Nucleated RBC 0.000 (0.0-0.012) K/mm3 Nucleated RBC % 0.0 (0.0-0.2) % PT 15.5 H (11.1-14.7) Seconds INR 1.2 APTT 30.4 (22.3-36.8) Seconds Methemoglobin 0.3 (0-1.5) %THb Minute Volume Not Reportable Vent Mode Cmv Tidal Volume 450 ml PEEP 5 cmH2O Peak Inspir Pressure Not Reportable Pressure Support Not Reportable Sodium 150 H (137-145) mmol/L Potassium 3.5 (3.4-5.0) mmol/L Chloride 115 H (98-107) mmol/L Carbon Dioxide 25 (22-30) mmol/L Anion Gap 10 (4-12) mmol/L BUN 36 H D (9-20) mg/dL Creatinine 1.30 (0.7-1.3) mg/dL Estim Creat Clear Calc 24 ml/min Estimated GFR 52 L (59 - ) Glucose 129 H (65-110) mg/dL Lactic Acid 7.0 H* (0.7-2.0) mmol/L Calcium 8.4 (8.4-10.2) mg/dL Magnesium Cancelled Cancelled Total Bilirubin (0.2-1.3) mg/dL AST (17-59) U/L ALT (6-50) U/L Alkaline Phosphatase (38-126) U/L Troponin I 0.016 (0.000-0.034) ng/mL NT-Pro-B Natriuret Pep 4120 H (19.9-100) pg/mL Total Protein (6.3-8.2) g/dL Albumin (3.5-5.1) g/dL Urine Color (Yellow) Urine Appearance (Clear) Urine pH (5.0-9.0) Ur Specific [place] (1.001-1.035) Urine Protein (Negative) mg/dL Urine Glucose (UA) (Negative) mg/dL Urine Ketones (Negative) mg/dL Ur Blood (Man) (Negative) Urine Nitrate (Negative) Urine Bilirubin (Negative) Urine Urobilinogen (<2.0) mg/dL Add Ur Microanalysis Leukocyte Esterase Rfl (Negative) YAQUELIN/UL Urine RBC (0-2) /hpf Urine WBC (0-3) /hpf Urine WBC Clumps (None) /HPF Ur Squamous Epith Cells (Few) /hpf Urine Bacteria /hpf Urine Casts Urine Mucus /lpf Nasal MRSA (PCR) (NOT DETECTE) Influenza A (RT-PCR) (Negative) Influenza B (RT-PCR) (Negative) SARS-CoV-2 RNA (RT-PCR) (Negative) 05/03/24 05/03/24 05/03/24 Range/Units 18:19 19:50 19:56 WBC (4.5-10.0) K/mm3 RBC (4.6-6.20) M/mm3 Hgb (14.0-18.0) g/dL Hct (42.0-52.0) % MCV (80-100) fl MCH (26-34) pg MCHC (32-36) g/dl RDW (11.5-14.5) % Plt Count (150-375) k/mm3 MPV (7.4-10.4) fl Immature Gran % (Auto) (0-0.5) % Neut % (Auto) (45.5-73.1) % Lymph % (Auto) (18.3-44.2) % [place] % (Auto) (2.6-8.5) % Eos % (Auto) (0-4.4) % Baso % (Auto) (0.2-1.2) % Lymph # (Auto) (0.9-3.2) K/mm3 [place] # (Auto) (0.1-0.6) K/mm3 Eos # (Auto) (0-0.3) K/mm3 Baso # (Auto) (0.0-0.1) K/mm3 Abs Immat Gran (auto) (0.00-0.031) K/mm3 Absolute Neuts (auto) (1.3-6.7) K/mm3 Absolute Nucleated RBC (0.0-0.012) K/mm3 Nucleated RBC % (0.0-0.2) % PT (11.1-14.7) Seconds INR APTT (22.3-36.8) Seconds Methemoglobin (0-1.5) %THb Minute Volume Vent Mode Tidal Volume ml PEEP cmH2O Peak Inspir Pressure Pressure Support Sodium (137-145) mmol/L Potassium (3.4-5.0) mmol/L Chloride (98-107) mmol/L Carbon Dioxide (22-30) mmol/L Anion Gap (4-12) mmol/L BUN (9-20) mg/dL Creatinine (0.7-1.3) mg/dL Estim Creat Clear Calc ml/min Estimated GFR (59 - ) Glucose (65-110) mg/dL Lactic Acid (0.7-2.0) mmol/L Calcium (8.4-10.2) mg/dL Magnesium 2.7 H Total Bilirubin 1.5 H (0.2-1.3) mg/dL AST 48 (17-59) U/L ALT 29 (6-50) U/L Alkaline Phosphatase 160 H (38-126) U/L Troponin I (0.000-0.034) ng/mL NT-Pro-B Natriuret Pep (19.9-100) pg/mL Total Protein 6.0 L (6.3-8.2) g/dL Albumin 2.6 L (3.5-5.1) g/dL Urine Color [facility] H (Yellow) Urine Appearance Turbid H (Clear) Urine pH 5.0 (5.0-9.0) Ur Specific [place] > 1.045 H (1.001-1.035) Urine Protein 2+ H (Negative) mg/dL Urine Glucose (UA) Negative (Negative) mg/dL Urine Ketones Negative (Negative) mg/dL Ur Blood (Man) 3+ H (Negative) Urine Nitrate Positive H (Negative) Urine Bilirubin 2+ H (Negative) Urine Urobilinogen 1.0 (<2.0) mg/dL Add Ur Microanalysis Reviewed Leukocyte Esterase Rfl 2+ H (Negative) YAQUELIN/UL Urine RBC >100 H (0-2) /hpf Urine WBC >100 H (0-3) /hpf Urine WBC Clumps Present H (None) /HPF Ur Squamous Epith Cells Occasional (Few) /hpf Urine Bacteria 1+ H /hpf Urine Casts >20 Urine Mucus Present /lpf Nasal MRSA (PCR) Not detected (NOT DETECTE) Influenza A (RT-PCR) Negative (Negative) Influenza B (RT-PCR) Negative (Negative) SARS-CoV-2 RNA (RT-PCR) Negative (Negative) ABG Data ABG results: 05/03/24 15:52 Puncture Site Right radial ABG pH 7.467 H ABG pCO2 33.6 L ABG pO2 241.0 H ABG PO2/FiO2 Ratio 2.41 ABG HCO3 23.7 ABG O2 Saturation 99.6 ABG O2 Content 18.3 ABG Base Excess 0.6 A-a Gradient 438.4 Oxyhemoglobin 99.1 Carboxyhemoglobin 0.2 Reduced Hemoglobin 0.4 Total Hemoglobin 12.7 O2 Delivery Device Ventilator O2 Liters/Min Not Reportable Vent Rate 18 FiO2 100 Imaging Data Radiologist's impression: ITS Impressions Chest X-Ray 05/03/24 17:41 IMPRESSION: Endotracheal tube terminates 3.2 cm above the kali. Patchy bilateral groundglass opacities opacities, may represent edema or infection. Segmental left basilar atelectasis/consolidation. Multiple loops of dilated likely large bowel in the upper abdomen which is a chronic finding but appears to have increased since the prior study. Head CT 05/03/24 19:26 IMPRESSION: No acute intracranial process. Acute right sphenoid sinusitis Chest/Abdomen/Pelvis CT 05/03/24 19:31 IMPRESSION: Bilateral upper lobe segmental and subsegmental pulmonary emboli. Moderate clot burden. RV/LV ratio 1.2. Bilateral upper lobe pulmonary opacities may represent pulmonary infarcts. Infection/aspiration could appear similarly and are not excluded. Bilateral medial and basilar consolidation probably representing a component of aspiration given the location and presence of bilateral lower lobe airway debris. Moderate esophagitis/gastritis. Hepatic steatosis. Diffuse large bowel dilation, likely chronic colonic ileus. ECG Data EKG #1: Attestation: I personally reviewed and interpreted this ECG as follows: ECG completion date: 05/03/24 ECG completion time: 15:55 EKG Interpretation: tachycardia (131), sinus rhythm and NL axis Critical Care Time Critical Care Time Critical Care Time: Yes Total Critical Care Time: 60 Discharge Plan Discharge Clinical Impression: Acute respiratory failure, Pulmonary emboli, Aspiration into lower respiratory tract, Acidosis, lactic Patient Disposition: Still a Patient Condition: Critical Quality [place] Coma Scale Eyes: Open Verbal: Moans, Unintelligible Motor: Withdraws to Pain [place] Coma Total Score: 10
--- NOTE | 2024-05-03 16:36 | PC.NURSE ---
Prepared pt to be intubated. Crash cart and all supplies in room. Dr. Hinson and RT at bedside HR127 R31 BP 158/117 94% 1614 20 Etomidate given 1615 100 Succinate given 1615 pt intubated 24 at the lip HR 130 R 14 BP 87/69 100%
[2024-05-03 16:49] LABS: NT Pro B Type Natriuretic Pept 4120 pg/mL (19.9-100); Troponin I 0.016 ng/mL (0.000-0.034)
[2024-05-03] MEDS: fentaNYL CITRATE INJ (*CRX) 100 MCG/2 ML VIAL 50 MCG IV PUSH (16:49)
[2024-05-03] MEDS: MIDAZOLAM HCL (*CRX) 2 MG/2 ML VIAL IV PUSH (16:49)
[2024-05-03] MEDS: MIDAZOLAM 100MG/NS 100ML(*CRX) 100 MG/100 ML BAG IV CONT (16:56)
[2024-05-03] MEDS: FENTANYL 2,500MCG/NS250ML(*CRX 2,500 MCG/250 ML BAG IV CONT (16:57)
--- NOTE | 2024-05-03 17:45 | PC.NURSE ---
Several attempts to place an NG/OG, attempts were unsuccessful.
[2024-05-03 18:44] LABS: Albumin Level 2.6 g/dL (3.5-5.1); Alkaline Phosphatase 160 U/L (38-126); Aspartate Amino Transferase 48 U/L (17-59); Blood Urea Nitrogen 36 mg/dL (9-20); Calcium 8.4 mg/dL (8.4-10.2); Carbon Dioxide 25 mmol/L (22-30); Chloride 115 mmol/L (98-107); Estimated CRCL calculation 24 ml/min; Estimated Glomerular Filt Rate 52; Glucose 129 mg/dL (65-110); INR 1.2; Prothrombin Time 15.5 Seconds (11.1-14.7)
[2024-05-03 18:45] LABS: Anion Gap 10 mmol/L (4-12); Bilirubin,Total 1.5 mg/dL (0.2-1.3); Magnesium 2.7 mg/dL (1.6-2.3); Partial Thromboplastin Time 30.4 Seconds (22.3-36.8); Potassium 3.5 mmol/L (3.4-5.0); Sodium 150 mmol/L (137-145)
[2024-05-03] MEDS: cefTRIAXone 2 GM/NS 100 ML 2 GM/100 ML BAG IVPB (18:50)
[2024-05-03 18:52] LABS: Alanine Aminotransferase 29 U/L (6-50)
[2024-05-03] MEDS: SODIUM CHLORIDE 0.9% IV 500 ML 999 ML IV CONT (18:55)
--- NOTE | 2024-05-03 18:56 | PC.NURSE ---
exchanged pts chronic bella, no urine output.
[2024-05-03 19:07] LABS: Influenza A QL RT-PCR Negative (Negative); Influenza B QL RT-PCR Negative (Negative); SARS-CoV-2 RNA PCR Negative (Negative)
--- NOTE | 2024-05-03 19:30 | PC.NURSE ---
Assumed care of patient after receiving report from YUNIOR Gates
[2024-05-03] MEDS: AZITHROMYCIN 500 MG/NS 250 ML 500 MG/250 ML BAG 250 MG IVPB (19:32)
[2024-05-03 20:08] LABS: Add Urine Microscopic? YES; Appearance Urine Turbid (Clear); Bilirubin Urine 2+ (Negative); Blood Urine 3+ (Negative); Color Urine Orange (Yellow); Glucose Urine UA Negative (Negative); Ketones Urine Negative (Negative); Leukocyte Esterase Ur 2+ LEU/UL (Negative); Nitrate Urine Positive (Negative); Protein Urine 2+ mg/dL (Negative); Specific Grav Ur > 1.045 (1.001-1.035)
[2024-05-03 20:12] LABS: Bacteria Urine 1+ /hpf; Non Pathogenic Casts >20; RBC Urine >100 /hpf (0-2); Squamous Epithelial Cell Urine Occasional /hpf (Few); WBC Urine >100 /hpf (0-3)
[2024-05-03 20:15] LABS: Mucus Urine Present /lpf; Need Manual Microscopic Reviewed; WBC Clumps Urine Present /HPF
--- NOTE | 2024-05-03 20:19 | PM.IMHP ---
H&P: HPI History of Present Illness Date/Time: 05/03/24 20:19 Chief Complaint: DYSPHAGIA Narrative: THIS IS AN 89-YEAR-OLD MALE WITH PAST MEDICAL HISTORY SIGNIFICANT FOR DEMENTIA, DYSPHAGIA, WAS BROUGHT TO THE EMERGENCY ROOM DUE TO ALTERED MENTAL STATUS, LETHARGY, OBTUNDATION, RESPONSIVENESS. PATIENT WAS INTUBATED ON ARRIVAL TO EMERGENCY ROOM PLACED ON VENTILATOR SUPPORT. EXAMINATION: CT brain wo con DATE: 05/03/2024 19:26 INDICATION: AMS . TECHNIQUE: Computed tomography (CT) of the head was performed without intravenous contrast. The mA was adjusted according to patient size. Iterative reconstruction technique was employed. The dose-length product was 605.33 mGy-cm. COMPARISON: 08/22/2021. FINDINGS: No acute intracranial hemorrhage or extra-axial fluid collection. No hydrocephalus, mass, or herniation. No acute ischemic infarct. Unremarkable dural venous sinus attenuation. No acute osseous abnormality. Right sphenoid air-fluid level, the remaining aerated spaces are clear. Moderate atrophy and mild chronic white matter change. Atherosclerotic intracranial calcification. Bilateral lens replacements. 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 Focal right occipital encephalomalacia may also represent old infarct. Focal old bilateral cerebellar hemisphere infarcts. IMPRESSION: No acute intracranial process. Acute right sphenoid sinusitis EXAMINATION: CT chest abdomen pelvis w con DATE: 05/03/2024 19:26 INDICATION: sepsis, possible mass, cancer . TECHNIQUE: Computed tomography (CT) of the chest, abdomen, and pelvis was performed with 100 mL Omnipaque-350 intravenous contrast. Automated exposure control and iterative reconstruction technique were employed. The dose-length product was 370.20 mGy-cm. COMPARISON: X-ray chest, same date; CT abdomen pelvis 04/06/2021 FINDINGS: CHEST: Thoracic aorta: No significant dilation. No dissection. Lung parenchyma and airways: Bilateral dependent and medial lower lobe consolidation. Bilateral upper lobe segmental groundglass opacities with associated centrilobular consolidation in the right upper lobe. A few additional scattered centrilobular groundglass opacities present bilaterally. Minimal airway debris in bilateral lower lobe bronchi. Thoracic inlet, axillae and chest wall: Endotracheal tube providing 2.2 cm above the kali. No thyroid or soft tissue mass. No axillary lymphadenopathy. Mediastinum: No mass or lymphadenopathy. Dilated central pulmonary arteries as can be seen with pulmonary arterial hypertension. Segmental and subsegmental occlusive and nonocclusive bilateral upper lobe pulmonary emboli. Heart and pericardium: Normal heart size. Aortic valve calcification. RV/LV ratio 1.2. No pericardial effusion. Coronary artery calcifications: Heavy. Pleura: No effusion or mass. Thoracic bones: No acute osseous finding in the chest. ABDOMEN/PELVIS: Liver: Diffuse fatty infiltration. Biliary/Gallbladder: Gallbladder is normal. No bile duct dilation. Pancreas: No mass or duct dilation. Spleen: Normal. Adrenals:No mass. Kidneys: No suspicious mass, obstructing stone, or hydronephrosis mild bilateral renal cortical thinning. Simple right midpole cyst.. GI tract: Moderate distal esophageal and gastric wall edema. no small bowel dilation. Marked diffuse large bowel dilation, improved since the prior examination. Normal appendix. Mesentery/Peritoneum: No ascites, mass, or free air. Retroperitoneum: No mass Atherosclerotic abdominal aortic and/or arterial calcifications. Pelvis: The urinary bladder is decompressed by Larkin catheter. Prostatomegaly Soft Tissues: Soft tissues and body wall unremarkable. Abdominopelvic bones: No acute osseous finding in the abdomen/pelvis. IMPRESSION: Bilateral upper lobe segmental and subsegmental pulmonary emboli. Moderate clot burden. RV/LV ratio 1.2. Bilateral upper lobe pulmonary opacities may represent pulmonary infarcts. Infection/aspiration could appear similarly and are not excluded. Bilateral medial and basilar consolidation probably representing a component of aspiration given the location and presence of bilateral lower lobe airway debris. Moderate esophagitis/gastritis. Hepatic steatosis. Diffuse large bowel dilation, likely chronic colonic ileus. EXAMINATION: XR chest 1V portable Exam Date/Time: 05/03/2024 17:20 CDT HISTORY: respiratory distress Comparison: 08/23/2021. RESULT: Lines, tubes, and devices: Endotracheal tube terminates 3.2 cm above the kali. Lungs and pleura: Ill-defined patchy segmental groundglass right upper lung and right midlung opacities. Streaky segmental left basilar airspace opacity. Cardiomediastinal silhouette: Stable. Other: Dilated bowel loops in the upper abdomen, increased from the comparison study. No acute osseous finding. IMPRESSION: Endotracheal tube terminates 3.2 cm above the kali. Patchy bilateral groundglass opacities opacities, may represent edema or infection. Segmental left basilar atelectasis/consolidation. Multiple loops of dilated likely large bowel in the upper abdomen which is a chronic finding but appears to have increased since the prior study. Review of Systems Review of Systems: ROS unobtainable: Yes other ( PATIENT IS ON VENTILATOR SUPPORT) [facility] Past Medical History Medical History Acute UTI Colorectal cancer Dementia Dysuria Fatigue Hyperlipidemia Late onset Alzheimer disease TIA (transient ischemic attack) Toenail fungus Vitamin D deficiency Surgical History Surgical History H/O transurethral resection of prostate Family History Family History Father Family history of malignant neoplasm Family history of respiratory disorder, Onset Age: 50 Patient's father is Mother Family history of transient ischemic attacks, Onset Age: 83 Family history of heart disease in male family member before age 55, Onset Age: 83 Patient's mother is Social History Social History Smoking status: Never smoker Alcohol intake: never Substance use: never Substance use type: does not use Current Housing: Decline to Answer Concerned About Future Housing: Decline to Answer Difficulty Paying Gas/Electric Bills: Decline to Answer Difficulty Paying for Meds: Decline to Answer Currently Unemployed: Decline to Answer Education: Decline to Answer Difficulty w/ Childcare or Family Care: Decline to Answer Spiritual care concerns: No Meds Home Medications and Allergies Home Medications Medication Instructions Recorded Confirmed Type ferrous sulfate 325 mg (65 mg 325 mg PO DAILY 10/18/21 05/03/24 History iron) tablet cephalexin 250 mg capsule 250 mg PO DAILY 05/03/24 05/03/24 History donepezil 10 mg tablet 10 mg PO DAILY 05/03/24 05/03/24 History memantine 10 mg tablet 10 mg PO BID 05/03/24 05/03/24 History Allergies Allergy/AdvReac Type Severity Reaction Status Date / Time No Known Allergies Allergy Verified 05/03/24 22:27 Vital Signs Vital Signs - 24 hr 05/03/24 15:43 05/03/24 16:56 05/03/24 16:57 Temperature Pulse Rate 105 H 106 H Respiratory Rate 25 H 13 13 Blood Pressure Pulse Oximetry 98 Oxygen Delivery Non-Rebreather Mask Oxygen Flow Rate 12 Fraction of Inspired Oxygen 05/03/24 17:41 05/03/24 15:48 05/03/24 18:56 Temperature 97.1 F L Pulse Rate 99 Respiratory Rate 17 Blood Pressure 84/57 L Pulse Oximetry 90 93 Oxygen Delivery Non-Rebreather Mask Oxygen Flow Rate 12 Fraction of Inspired Oxygen 05/03/24 17:16 05/03/24 16:45 05/03/24 18:31 Temperature Pulse Rate 105 H 117 H 104 H Respiratory Rate 20 Blood Pressure 114/78 Pulse Oximetry 92 100 93 Oxygen Delivery Mechanical Ventilation Mechanical Ventilation Oxygen Flow Rate Fraction of Inspired Oxygen 100 60 05/03/24 19:31 05/03/24 19:36 05/03/24 20:11 Temperature Pulse Rate 106 H 105 H 93 Respiratory Rate 18 93 H Blood Pressure 92/67 L 71/38 L Pulse Oximetry 100 98 18 L Oxygen Delivery Mechanical Ventilation Oxygen Flow Rate Fraction of Inspired Oxygen 60 Exam Narrative: LAYING IN A STRETCHER ON VENTILATOR SUPPORT Const: General: ill appearing, underweight and other ( ON VENTILATOR SUPPORT) Nutritional Appearance: underweight Orientation/consciousness: Other orientation findings ( SEDATED) HENMT: Head: normal to inspection, normocephalic and atraumatic Ears: hearing grossly normal bilaterally Face/Nose/Sinus: normal facial exam Face and sinus: normal facial exam Eyes: General: appearance normal, both eyes and all related structures Pupils: Equal, round and reactive pupils present EOM: EOMs intact bilaterally Other: PUPILS ARE 2 MM IN DIAMETER BILATERALLY Neck: Neck: full ROM, no lymphadenopathy and no JVD Thyroid: thyroid normal Lymphatic: no lymphadenopathy noted Resp: Effort & Inspection: other ( ON VENTILATOR SUPPORT) Auscultation: diminished lung sounds bilateral Cardio: Jugular venous distension: no JVD Rate: regular rate Rhythm: regular rhythm Heart sounds: S1 normal heart sound present and S2 normal heart sound present GI: Inspection: normal to inspection GI Palp: Yes Soft to palpation and Yes No hepatosplenomegaly present : General: Yes deferred Skin: Rashes: no rashes Wounds: no wounds Neuro: General: no focal motor deficits and CN's II-XI intact bilaterally Cranial nerves: Yes CN's II-XII intact bilaterally and Yes Equal, round and reactive pupils present Gait exam (Neuro): Unable to assess gait Motor exam (neuro): 5/5 motor strength present throughout Other: ON VENTILATOR SUPPORT Extrem: General: normal to inspection, full ROM, no joint enlargement and no pedal edema H&P: Results Labs Labs: Short CBC 05/03/24 Range/Units 16:22 WBC 19.7 H (4.5-10.0) K/mm3 Hgb 12.6 L (14.0-18.0) g/dL Hct 40.1 L (42.0-52.0) % Plt Count 183 (150-375) k/mm3 BMP 05/03/24 18:19 Sodium 150 H Potassium 3.5 Chloride 115 H Carbon Dioxide 25 BUN 36 H D Creatinine 1.30 Glucose 129 H Calcium 8.4 Cardiac Enzymes 05/03/24 Range/Units 16:22 Troponin I 0.016 (0.000-0.034) ng/mL Liver Function 05/03/24 Range/Units 18:19 Total Bilirubin 1.5 H (0.2-1.3) mg/dL AST 48 (17-59) U/L ALT 29 (6-50) U/L Alkaline Phosphatase 160 H (38-126) U/L Albumin 2.6 L (3.5-5.1) g/dL Urine 05/03/24 Range/Units 19:56 Urine Color Amelia H (Yellow) Urine Appearance Turbid H (Clear) Urine pH 5.0 (5.0-9.0) Ur Specific [place] > 1.045 H (1.001-1.035) Urine Protein 2+ H (Negative) mg/dL Urine Glucose (UA) Negative (Negative) mg/dL Assessment and Plan Assessment and plan (1) Acute respiratory failure: Code(s): J96.00 - Acute respiratory failure, unspecified whether with hypoxia or hypercapnia Status: Acute Assessment and Plan: PLACED ON VENTILATOR SUPPORT ADMIT TO ICU (2) Aspiration into lower respiratory tract: Code(s): T17.800A - Unspecified foreign body in other parts of respiratory tract causing asphyxiation, initial encounter Status: Acute Assessment and Plan: ON BROAD-SPECTRUM ANTIBIOTICS AWAIT CULTURES (3) Pulmonary emboli: Code(s): I26.99 - Other pulmonary embolism without acute cor pulmonale Status: Acute Assessment and Plan: ON HEPARIN DRIP (4) Dysphagia: Code(s): R13.10 - Dysphagia, unspecified Status: Acute (5) Dementia: Qualifiers: Dementia behavioral disturbance: without behavioral disturbance Dementia type: unspecified type Qualified Code(s): F03.90 - Unspecified dementia without behavioral disturbance Code(s): F03.90 - Unspecified dementia, unspecified severity, without behavioral disturbance, psychotic disturbance, mood disturbance, and anxiety Status: Acute Assessment and Plan: ON DONEPEZIL AND MEMANTINE CURRENTLY HOLD (6) Ileus: Code(s): K56.7 - Ileus, unspecified Status: Acute Assessment and Plan: NPO replace electrolytes as needed OG in place (7) Protein calorie malnutrition: Code(s): E46 - Unspecified protein-calorie malnutrition Status: Acute Assessment and Plan: currently NPO Ileus present consider TPN Hospitalist MIPS Advance Care Plan I have confirmed that the patient's Advanced Care Plan is present, code status is documented, or surrogate decision maker is listed in patient medical record.: Yes Medication Reconciliation I have utilized all available resources to obtain, update and review the patients current medications (includes all prescriptions, OTC, herbals, cannabis, and nutritional supplements).: Yes
[2024-05-03] MEDS: PANTOPRAZOLE SODIUM IV 40 MG VIAL IV PUSH (21:02)
[2024-05-03 21:04] LABS: MRSA (PCR) NOT DETECTED (NOT DETECTE)
[2024-05-03 21:29] LABS: Reflex Lactic Acid Yes or No Add Lactic
[2024-05-03] MEDS: NOREPINEPHRINE 8 MG/D5W 250 ML 8 MG/250 ML BAG 9.38 MG IV CONT (21:38)
[2024-05-03] MEDS: HEPARIN SOD/D5W 100 UNITS/ML 25,000 UNITS/250 ML BAG 9 UNITS IV CONT (21:52)
[2024-05-03] MEDS: HEPARIN SODIUM 5,000 UNITS/ML VIAL 4000 UNITS IV PUSH (21:52)
[2024-05-03 23:33] LABS: Lactic Acid 2.7 mmol/L (0.7-2.0)
[2024-05-03] MEDS: SODIUM CHLORIDE 0.9% IV 1,000 ML 125 ML IV CONT (23:58)
[2024-05-03] MEDS: VANCOMYCIN 1,250 MG/NS 250 ML 1,250 MG/250 ML BAG 166.67 MG IVPB (23:58)
[2024-05-03] MEDS: MINERAL OIL/WHITE PETROLATUM OINTMENT 1 APPLIC EACH EYE (23:59)
[2024-05-04] VITALS (39 sets, daily range): BP systolic 45–126; BP diastolic 33–77; PULSE 70–103; RESP 14–19; TEMP 36.3; O2SAT 90–99; BMI 16.5
--- NOTE | 2024-05-04 | ECHO_ITS ---
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 Reason for Poor Study: poor echocardiographic windows Summary 1. Complete two-dimensional, color flow and Doppler transthoracic echocardiogram is performed. 2. Normal left ventricular size with vigorous systolic contractility and grade 1 diastolic noncompliance. 3. Mild right ventricular enlargement with RV hypokinesia. 4. Tricuspid regurgitation with velocities indicate RV systolic pressure approximately 37 mmHg. 5. Mildly sclerotic aortic valve without stenosis. Left Ventricle Left ventricular chamber dimension is normal. Left ventricular systolic function is normal, estimated at 55-60%. The left ventricular diastolic function is grade I diastolic dysfunction. Right Ventricle Right ventricular chamber dimension is moderately enlarged. Right ventricular systolic function is reduced. Linear artifact in right ventricle suggestive of catheter(s), pacemaker lead(s), or ICD lead(s). Left Atria Left atrial chamber dimension is normal. Right Atria Right atrial chamber dimension is normal. Aortic Valve The aortic valve is trileaflet. There is mild aortic valve sclerosis. Pulmonic Valve The pulmonic valve is not well visualized. Mitral Valve The mitral valve has normal leaflets. There is mild mitral valve regurgitation. Tricuspid Valve The tricuspid valve leaflets are normal. There is mild tricuspid valve regurgitation. Mild pulmonary hypertension, estimated pulmonary arterial systolic pressure is 38 mmHg. Pericardium/Pleural The pericardium appears normal. Aorta The aortic root size at the sinus of Valsalva is normal. Left Ventricular Outflow Tract Name Value Normal LVOT 2D LVOT Diameter 2.1 cm LVOT Doppler LVOT Peak Gradient 2 mmHg LVOT Mean Gradient 1 mmHg LVOT VTI 13 cm LVOT VTI/AV VTI Ratio 0.5 LVOT Stroke Volume 46 ml LVOT CO 3.0 l/min LVOT CI 1.9 l/min/m2 Pulmonic Valve Name Value Normal PV Doppler PV Peak Gradient 2 mmHg Mitral Valve Name Value Normal MV Doppler MV Decel Fleming 217 cm/s2 MV PHT 63 ms MV Area (PHT) 3.5 cm2 4.0-5.0 MV Diastolic Function MV E Peak Velocity 47 cm/s MV A Peak Velocity 69 cm/s MV E/A 0.7 MV Decel Time 219 ms Tricuspid Valve Name Value Normal TV Regurgitation Doppler TR Peak Velocity 263 cm/s TR Peak Gradient 27 mmHg Estimated PAP/RSVP RA Pressure 10 mmHg <=5 PA Systolic Pressure 38 mmHg <36 RV Systolic Pressure 38 mmHg <36 Aortic Valve Name Value Normal AV Doppler AV Peak Velocity 146 cm/s AV Peak Gradient 9 mmHg AV Mean Gradient 3 mmHg AV VTI 25 cm AV Area (Cont Eq VTI) 1.8 cm2 >=3.0 AV Area (Cont Eq Orestes) 1.8 cm2 AV Regurgitation 2D LVOT Area 3.6 cm2 Ventricles Name Value Normal LV Dimensions 2D/MM IVS Diastolic Thickness (2D) 0.8 cm 0.6-1.0 IVS Diastole Thickness (MM) 0.6 cm 0.6-1.0 LVID Diastole (2D) 3.6 cm 4.2-5.8 LVID Diastole (MM) 4.9 cm 4.2-5.8 LVIW Diastolic Thickness (2D) 0.8 cm 0.6-1.0 LVIW Diastolic Thickness (MM) 0.7 cm 0.6-1.0 LVID Systole (2D) 2.2 cm 2.5-4.0 LVID Systole (MM) 4.4 cm 2.5-4.0 LVOT Diameter 2.1 cm LV Mass (2D Cubed) 77.18 g 88.00-224.00 LV Mass Index (2D Cubed) 49 g/m2 49-115 Relative Wall Thickness (2D) 0.44 LV Mass (MM Cubed) 104.62 g 88.00-224.00 LV Mass Index (MM Cubed) 66 g/m2 49-115 Relative Wall Thickness (MM) 0.29 LV Fractional Shortening/Ejection Fraction 2D/MM LV Fractional Shortening (2D) 39 % 25-43 LV Fractional Shortening (MM) 11 % 25-43 LV EF (MM Teicholz) 23 % 52-72 LV EF (2D Teicholz) 70 % 52-72 LV Diastolic Volume (4C MOD) 34 ml LV EF (4C MOD) 20 % LV Diastolic Volume (2C MOD) 66 ml LV EF (2C MOD) 41 % LV Diastolic Volume (BP MOD) 50 ml 62-150 LV Diastolic Volume Index (BP MOD) 31 ml/m2 34-74 LV Systolic Volume (BP MOD) 32 ml 21-61 LV Systolic Volume Index (BP MOD) 20 ml/m2 11-31 LV EF (BP MOD) 35 % 52-72 LV Diastolic Length (4C) 6.1 cm LV Systolic Length (4C) 5.4 cm LV Stroke Volume (4C MOD) 7 ml Atria Name Value Normal LA Dimensions LA Volume (4C A-L) 20 ml LA Volume (BP A-L) 27 ml RA Dimensions RA Area (4C) 18.4 cm2 <=18.0 Report Signatures
--- NOTE | 2024-05-04 02:24 | ADMGEN ---
This patient, Regan Croft, was admitted to Intensive Care Unit-6 at 2335 on 05/03/24. Patient/family oriented to hospital policies and general routines including ID bracelet, bed and alarms, visiting hours, pain management, procedures, bathroom and other care routines, personal items, smoking policy, room service/diet, and visiting hours. Information on how to activate the Rapid Response Team has been discussed. Patient/Family are encouraged to report perceived risks to care and to ask questions if they do not understand what they are told or what they should do.
[2024-05-04] MEDS: PIPERACILLIN/TAZ 2.25G/NS 50ML 2.25 GM/50 ML BAG IVPB ×2 (02:36→09:21)
[2024-05-04 04:09] LABS: Hematocrit 30.8 % (42.0-52.0); Hemoglobin 9.9 g/dL (14.0-18.0); Mean Corpuscular HGB Conc 32.1 g/dl (32-36); Mean Corpuscular Volume 108.8 fl (80-100); Platelet Count Result 181 k/mm3 (150-375); Red Blood Count 2.83 M/mm3 (4.6-6.20); Red Cell Distribution Width 13.7 % (11.5-14.5); White Blood Count 15.5 K/mm3 (4.5-10.0)
[2024-05-04 04:21] LABS: Magnesium 2.3 mg/dL (1.6-2.3); Phosphorus 2.1 mg/dL (2.5-4.5)
[2024-05-04 04:28] LABS: Alanine Aminotransferase 17 U/L (6-50); Albumin Level 1.8 g/dL (3.5-5.1); Alkaline Phosphatase 122 U/L (38-126); Anion Gap 9 mmol/L (4-12); Aspartate Amino Transferase 29 U/L (17-59); Bilirubin,Total 0.9 mg/dL (0.2-1.3); Blood Urea Nitrogen 32 mg/dL (9-20); Calcium 7.2 mg/dL (8.4-10.2); Carbon Dioxide 19 mmol/L (22-30); Chloride 120 mmol/L (98-107); Estimated CRCL calculation 28 ml/min; Estimated Glomerular Filt Rate > 60; Glucose 142 mg/dL (65-110); Potassium 2.4 mmol/L (3.4-5.0); Sodium 148 mmol/L (137-145)
[2024-05-04 04:36] LABS: Neutrophils Percent Manual 77 % (46-73); Total Cells Counted 100
[2024-05-04 04:37] LABS: Band Neutrophils Percent 16 % (0-6); Burr Cells 1+; Eosinophils Absolute Manual 0.15 K/mm3 (0.02-0.50); Eosinophils Percent Manual 1 % (0-4); Lymphocytes Absolute Manual 0.93 K/mm3 (1.1-4.5); Neutrophils Absolute Manual 14.41 K/mm3 (1.3-6.7); Platelet Estimate Adequate (Adequate); Schistocytes None Seen
[2024-05-04 04:52] LABS: Alveolar/Arterial O2 Gradient 264.3 mmHg; Base Excess ABG -2.3 mEq/l (+/-2.0); Fractional Inspired Oxygen 70 %; HCO3 ABG 16.7 mEq/l (22.0-26.0); Oxygen Content ABG 15.8 %vol (16.0-22.0); Oxygen Saturation ABG 99.7 % (95.0-100.0); Oxyhemoglobin 98.9 % THb (90.0-100.0); PO2 ABG 217.4 mmHg (80.0-100.0); PO2 FiO2 Ratio Arterial Blood 3.11 %
[2024-05-04 04:54] LABS: Device VENTILATOR; Modified Allen's Test Unable to perform; PCO2 ABG 16.2 mmHg (35.0-45.0); Site Drawn RIGHT RADIAL
[2024-05-04 04:55] LABS: Arterial Blood Gas PEEP 5 cmH2O; Arterial Blood Gas Tidal Volume 450 ml; Arterial Blood Gas Vent Mode CMV; Arterial Blood Gas Ventilator rate 18 /MIN
[2024-05-04 04:58] LABS: Partial Thromboplastin Time > 200.0 Seconds (22.3-36.8)
[2024-05-04] MEDS: KCL 40 MEQ/WATER 100 ML 100 ML 25 ML IVPB (05:31)
[2024-05-04 08:03] LABS: Glucose Point of Care 144 mg/dl (65-105)
[2024-05-04] MEDS: NOREPINEPHRINE 8 MG/D5W 250 ML 8 MG/250 ML BAG 18.75 MG IV CONT (08:10)
[2024-05-04] MEDS: ALBUMIN HUMAN 25% 25 GM/100 ML 100 ML IVPB (08:56)
--- NOTE | 2024-05-04 08:56 | P.CONIN_ITS ---
Assessment and Plan Assessment and plan (1) Acute respiratory failure: Code(s): J96.00 - Acute respiratory failure, unspecified whether with hypoxia or hypercapnia Status: Acute Assessment and Plan: Acute respiratory failure secondary to aspiration pneumonia, PE and possible pulmonary infarction Patient now intubated and sedated on mechanical ventilation Chest x-ray reviewed ABG reviewed both tidal volumes and rates have been decreased Management of individual problems as below (2) Septic shock: Code(s): A41.9 - Sepsis, unspecified organism; R65.21 - Severe sepsis with septic shock Status: Acute Assessment and Plan: Secondary to UTI and aspiration pneumonia Blood and urine cultures have been sent IV fluids Levophed and vasopressin Stress dose hydrocortisone Empiric Zosyn (3) Pulmonary emboli: Code(s): I26.99 - Other pulmonary embolism without acute cor pulmonale Status: Acute Assessment and Plan: CT scan shows bilateral upper lobe segmental and subsegmental pulmonary emboli Continue heparin infusion Check echocardiogram and bilateral lower venous Dopplers Patient is hypotensive and is on vasopressors but this is likely secondary to multifactorial from sepsis and sedation Patient has a relative contraindication for thrombolytics therapy (4) Pneumonia: Code(s): J18.9 - Pneumonia, unspecified organism Status: Acute Assessment and Plan: Aspiration pneumonia see above (5) Protein calorie malnutrition: Code(s): E46 - Unspecified protein-calorie malnutrition Status: Acute Assessment and Plan: Patient appears to have significant malnutrition from prolonged dementia and dysphagia Past records from even last year from office visit shows the patient had limited p.o. intake Will start tube feeding once the GI issues are is old (6) Aspiration into lower respiratory tract: Code(s): T17.800A - Unspecified foreign body in other parts of respiratory tract causing asphyxiation, initial encounter Status: Acute Assessment and Plan: See above (7) Acute metabolic encephalopathy: Code(s): G93.41 - Metabolic encephalopathy Status: Acute Assessment and Plan: Head CT negative Baseline dementia Currently sedated TSH pending (8) Acute UTI: Code(s): N39.0 - Urinary tract infection, site not specified Status: Acute Assessment and Plan: See above (9) Dementia: Qualifiers: Dementia behavioral disturbance: without behavioral disturbance Dementia type: unspecified type Qualified Code(s): F03.90 - Unspecified dementia without behavioral disturbance Code(s): F03.90 - Unspecified dementia, unspecified severity, without behavioral disturbance, psychotic disturbance, mood disturbance, and anxiety Status: Acute Assessment and Plan: Patient has baseline dementia. Will discuss with family regarding goals of care (10) Metabolic acidosis: Code(s): E87.20 - Acidosis, unspecified Status: Acute Assessment and Plan: Will start IV fluids with bicarb (11) Esophagitis: Code(s): K20.90 - Esophagitis, unspecified without bleeding Status: Acute Assessment and Plan: PPI (12) Dehydration: Code(s): E86.0 - Dehydration Status: Acute Assessment and Plan: Patient appears to be significantly high dehydrated on presentation. Patient received crystalloid fluids and has hyperchloremic acidosis Change IV fluids to hypotonic with sodium bicarbonate treat hyponatremia, dehydration, hyperchloremia and metabolic acidosis Will hold giving fluids to gastric tube and GI issues are sorted out. (13) Electrolyte abnormality: Code(s): E87.8 - Other disorders of electrolyte and fluid balance, not elsewhere classified Status: Acute Assessment and Plan: Potassium and phosphorous replacement ordered (14) Functional megacolon: Code(s): K59.39 - Other megacolon Status: Acute Assessment and Plan: CT scan shows diffuse large bowel dilation this is likely chronic colonic ileus from debility and laying in bed but obstruction cannot be ruled out at this point. CT scan shows colon filled with liquid stool NPO at this time and gastric tube in place Bowel sounds are present on exam Placed active tube Plan DVT prophylaxis -on heparin infusion Stress ulcer prophylaxis -PPI Nutrition - npo Code Status - Full Code Total Critical Care Time - 40 minutes Due to a high probability of clinically significant, life threatening deterioration, the patient required my highest level of preparedness to intervene emergently and I personally spent this critical care time directly and personally managing the patient. This critical care time included obtaining a history; examining the patient; pulse oximetry; ordering and review of studies; arranging urgent treatment with development of a management plan; evaluation of patient's response to treatment; frequent reassessment; and discussions with other providers. It was exclusive of separately billable procedures and treating other patients and teaching time. Please see Assessment and Plan section and the rest of the note for further information on patient assessment and treatment Superintendent [employer]creation Consult Note Consult date: 05/04/24 Reason for consult: Acute respiratory failure HPI: Regan Croft is a 89 year old male with past medical history of dementia, maln utrition, dysphagia, colorectal cancer, TIA, hyperlipidemia was brought in to the ER yesterday with respiratory distress. Patient was brought in by his and children. The history presented to the ER physician was that patient was having difficulty swallowing over last few days and they had started feeding him liquid diet with a syringe over time he developed more respiratory distress. In ER patient was hypoxic with saturation of 70% on room air and was placed on oxygen. Eventually patient was intubated. Patient was also hypotensive. Patient was given IV fluids. Patient was started on antibiotics and vasopressors. A femoral central venous catheter was placed. CT scan was done with results as below Patient now intubated and sedated and unable to provide any further history. Hi story was obtained from chart review Review of Systems Review of Systems: ROS unobtainable: Yes unobtainable due to endotracheal tube, unobtainable due to medical condition and unobtainable due to mental status PMFSH Past Medical History Medical History Acute UTI Colorectal cancer Dementia Dysuria Fatigue Hyperlipidemia Late onset Alzheimer disease TIA (transient ischemic attack) Toenail fungus Vitamin D deficiency Surgical History Surgical History H/O transurethral resection of prostate Family History Family History Father Family history of malignant neoplasm Family history of respiratory disorder, Onset Age: 50 Patient's father is Mother Family history of transient ischemic attacks, Onset Age: 83 Family history of heart disease in male family member before age 55, Onset Age: 83 Patient's mother is Social History Social History Smoking status: Never smoker Alcohol intake: never Substance use: never Substance use type: does not use Current Housing: Decline to Answer Concerned About Future Housing: Decline to Answer Difficulty Paying Gas/Electric Bills: Decline to Answer Difficulty Paying for Meds: Decline to Answer Currently Unemployed: Decline to Answer Education: Decline to Answer Difficulty w/ Childcare or Family Care: Decline to Answer Spiritual care concerns: No Meds Home Medications and Allergies Home Medications Medication Instructions Recorded Confirmed Type ferrous sulfate 325 mg (65 mg 325 mg PO DAILY 10/18/21 05/03/24 History iron) tablet cephalexin 250 mg capsule 250 mg PO DAILY 05/03/24 05/03/24 History donepezil 10 mg tablet 10 mg PO DAILY 05/03/24 05/03/24 History memantine 10 mg tablet 10 mg PO BID 05/03/24 05/03/24 History Allergies Allergy/AdvReac Type Severity Reaction Status Date / Time No Known Allergies Allergy Verified 05/03/24 22:27 Vital Signs Vital Signs - 24 hr 05/03/24 15:43 05/03/24 16:56 05/03/24 16:57 Temperature Pulse Rate 105 H 106 H Respiratory Rate 25 H 13 13 Blood Pressure Pulse Oximetry 98 Oxygen Delivery Non-Rebreather Mask Oxygen Flow Rate 12 Fraction of Inspired Oxygen 05/03/24 17:41 05/03/24 15:48 05/03/24 18:56 Temperature 36.2 C L Pulse Rate 99 Respiratory Rate 17 Blood Pressure 84/57 L Pulse Oximetry 90 93 Oxygen Delivery Non-Rebreather Mask Oxygen Flow Rate 12 Fraction of Inspired Oxygen 05/03/24 17:16 05/03/24 16:45 05/03/24 18:31 Temperature Pulse Rate 105 H 117 H 104 H Respiratory Rate 20 Blood Pressure 114/78 Pulse Oximetry 92 100 93 Oxygen Delivery Mechanical Ventilation Mechanical Ventilation Oxygen Flow Rate Fraction of Inspired Oxygen 100 60 05/03/24 19:31 05/03/24 19:36 05/03/24 20:11 Temperature Pulse Rate 106 H 105 H 93 Respiratory Rate 18 93 H Blood Pressure 92/67 L 71/38 L Pulse Oximetry 100 98 18 L Oxygen Delivery Mechanical Ventilation Oxygen Flow Rate Fraction of Inspired Oxygen 60 05/03/24 21:33 05/03/24 21:36 05/03/24 21:38 Temperature Pulse Rate 85 91 86 Respiratory Rate 19 19 Blood Pressure 67/53 L Pulse Oximetry Oxygen Delivery Oxygen Flow Rate Fraction of Inspired Oxygen 05/03/24 22:02 05/03/24 22:06 05/03/24 22:11 Temperature Pulse Rate 86 90 95 Respiratory Rate 18 Blood Pressure 105/71 54/44 L 63/51 L Pulse Oximetry 99 Oxygen Delivery Oxygen Flow Rate Fraction of Inspired Oxygen 05/03/24 22:27 05/03/24 20:00 05/03/24 22:30 Temperature Pulse Rate 96 95 99 Respiratory Rate 18 18 Blood Pressure 84/59 L 69/48 L 83/57 L Pulse Oximetry 94 100 Oxygen Delivery Oxygen Flow Rate Fraction of Inspired Oxygen 05/03/24 22:56 05/03/24 20:15 05/03/24 20:30 Temperature Pulse Rate 97 89 86 Respiratory Rate 18 16 18 Blood Pressure 88/61 L 81/44 L 77/49 L Pulse Oximetry 100 95 99 Oxygen Delivery Oxygen Flow Rate Fraction of Inspired Oxygen 05/03/24 20:45 05/03/24 21:00 05/03/24 21:15 Temperature Pulse Rate 94 86 86 Respiratory Rate 18 18 18 Blood Pressure 97/52 L 83/53 L 74/49 L Pulse Oximetry 99 100 100 Oxygen Delivery Oxygen Flow Rate Fraction of Inspired Oxygen 05/03/24 21:30 05/03/24 21:45 05/03/24 22:00 Temperature Pulse Rate 84 88 86 Respiratory Rate 19 18 18 Blood Pressure 67/53 L 56/45 L 55/47 L Pulse Oximetry 99 100 99 Oxygen Delivery Oxygen Flow Rate Fraction of Inspired Oxygen 05/03/24 22:15 05/03/24 22:51 05/03/24 23:06 Temperature Pulse Rate 96 99 98 Respiratory Rate 18 Blood Pressure 73/44 L 83/57 L 83/60 L Pulse Oximetry 100 Oxygen Delivery Oxygen Flow Rate Fraction of Inspired Oxygen 05/03/24 23:14 05/03/24 22:34 05/04/24 00:00 Temperature Pulse Rate 99 97 102 H Respiratory Rate 18 18 Blood Pressure 99/68 L 86/62 L Pulse Oximetry 100 100 98 Oxygen Delivery Mechanical Ventilation Oxygen Flow Rate Fraction of Inspired Oxygen 60 05/04/24 00:15 05/04/24 00:00 05/04/24 00:15 Temperature Pulse Rate 100 102 H 100 Respiratory Rate 18 18 18 Blood Pressure 119/71 Pulse Oximetry 99 Oxygen Delivery Oxygen Flow Rate Fraction of Inspired Oxygen 05/04/24 00:00 05/04/24 00:00 05/04/24 00:00 Temperature Pulse Rate 103 H 103 H Respiratory Rate 18 Blood Pressure 86/62 L Pulse Oximetry Oxygen Delivery Mechanical Ventilation Oxygen Flow Rate Fraction of Inspired Oxygen 90 05/04/24 02:00 05/04/24 02:00 05/04/24 02:00 Temperature Pulse Rate 95 95 95 Respiratory Rate 18 18 Blood Pressure 96/65 L Pulse Oximetry Oxygen Delivery Oxygen Flow Rate Fraction of Inspired Oxygen 05/04/24 02:00 05/04/24 00:00 05/04/24 02:30 Temperature 36.3 C L Pulse Rate 91 100 90 Respiratory Rate 18 Blood Pressure 104/67 101/69 Pulse Oximetry 98 Oxygen Delivery Oxygen Flow Rate Fraction of Inspired Oxygen 05/04/24 02:00 05/04/24 03:15 05/04/24 03:30 Temperature Pulse Rate 91 89 89 Respiratory Rate Blood Pressure 105/70 56/44 L Pulse Oximetry Oxygen Delivery Oxygen Flow Rate Fraction of Inspired Oxygen 05/04/24 03:35 05/04/24 03:40 05/04/24 03:45 Temperature Pulse Rate 86 89 85 Respiratory Rate Blood Pressure 45/33 L 68/53 L 126/76 Pulse Oximetry Oxygen Delivery Oxygen Flow Rate Fraction of Inspired Oxygen 05/04/24 04:00 05/04/24 04:00 05/04/24 04:00 Temperature Pulse Rate 87 87 Respiratory Rate 18 Blood Pressure 111/71 Pulse Oximetry Oxygen Delivery Oxygen Flow Rate Fraction of Inspired Oxygen 70 05/04/24 04:00 05/04/24 04:30 05/04/24 05:15 Temperature Pulse Rate 87 87 83 Respiratory Rate 18 Blood Pressure 107/70 112/76 Pulse Oximetry Oxygen Delivery Oxygen Flow Rate Fraction of Inspired Oxygen 05/04/24 05:30 05/04/24 05:45 05/04/24 06:00 Temperature Pulse Rate 82 83 86 Respiratory Rate Blood Pressure 119/77 97/69 L 105/77 Pulse Oximetry Oxygen Delivery Oxygen Flow Rate Fraction of Inspired Oxygen 05/04/24 06:15 05/04/24 04:00 05/04/24 06:00 Temperature 36.3 C L Pulse Rate 82 87 86 Respiratory Rate 18 19 Blood Pressure 101/72 111/71 105/77 Pulse Oximetry 97 96 Oxygen Delivery Oxygen Flow Rate Fraction of Inspired Oxygen 05/04/24 06:30 05/04/24 06:00 05/04/24 06:00 Temperature Pulse Rate 82 86 86 Respiratory Rate 19 19 Blood Pressure 98/74 L Pulse Oximetry Oxygen Delivery Oxygen Flow Rate Fraction of Inspired Oxygen 05/04/24 04:00 05/04/24 02:02 05/04/24 05:05 Temperature Pulse Rate 92 87 Respiratory Rate Blood Pressure Pulse Oximetry 98 97 Oxygen Delivery Mechanical Ventilation Mechanical Ventilation Mechanical Ventilation Oxygen Flow Rate Fraction of Inspired Oxygen 40 90 70 05/04/24 05:44 05/04/24 06:52 05/04/24 06:30 Temperature Pulse Rate 88 82 Respiratory Rate 14 Blood Pressure 91/68 L Pulse Oximetry 97 Oxygen Delivery Mechanical Ventilation Oxygen Flow Rate Fraction of Inspired Oxygen 50 05/04/24 04:00 05/04/24 06:00 05/04/24 08:19 Temperature Pulse Rate 86 86 82 Respiratory Rate Blood Pressure Pulse Oximetry 98 Oxygen Delivery Mechanical Ventilation Oxygen Flow Rate Fraction of Inspired Oxygen 40 05/04/24 08:10 05/04/24 08:10 05/04/24 08:00 Temperature Pulse Rate 80 80 81 Respiratory Rate 14 Blood Pressure 86/66 L 86/66 L Pulse Oximetry Oxygen Delivery Oxygen Flow Rate Fraction of Inspired Oxygen 05/04/24 08:00 Temperature Pulse Rate 81 Respiratory Rate 14 Blood Pressure Pulse Oximetry Oxygen Delivery Oxygen Flow Rate Fraction of Inspired Oxygen Exam Narrative: General: Pt is cachectic old frail male who is sedated, intubated and on mechanical ventilation Lungs/Chest: Trachea central Coarse BS B/L, No crackles or wheezing. Cardiac: RRR. Normal S1 S2. No murmurs Circulation: Bilateral dorsalis pedis are palpable Abdomen: Present bowel sounds. Cachectic. Soft. NT. ND. Extremities: Bilateral pitting edema and dry flaky skin.. Warm femoral central venous catheter : Larkin in place Neurologic: Unable to assess due to sedation. Withdraws in 4 extremities to painful stimuli. PERRL Skin: Several areas of scabs on legs in various healing stages. Patient has a decubitus superficial wound with surrounding erythema Results Labs 05/04/24 03:33 05/04/24 03:33 Labs: Impressions Chest X-Ray 05/03/24 17:41 IMPRESSION: Endotracheal tube terminates 3.2 cm above the kali. Patchy bilateral groundglass opacities opacities, may represent edema or infection. Segmental left basilar atelectasis/consolidation. Multiple loops of dilated likely large bowel in the upper abdomen which is a c hronic finding but appears to have increased since the prior study. Head CT 05/03/24 19:26 IMPRESSION: No acute intracranial process. Acute right sphenoid sinusitis Chest/Abdomen/Pelvis CT 05/03/24 19:31 IMPRESSION: Bilateral upper lobe segmental and subsegmental pulmonary emboli. Moderate clot burden. RV/LV ratio 1.2. Bilateral upper lobe pulmonary opacities may represent pulmonary infarcts. Infection/aspiration could appear similarly and are not excluded. Bilateral medial and basilar consolidation probably representing a component of aspiration given the location and presence of bilateral lower lobe airway debris. Moderate esophagitis/gastritis. Hepatic steatosis. Diffuse large bowel dilation, likely chronic colonic ileus. Abdomen X-Ray 05/04/24 06:23 Impression: OG tube in satisfactory position. Extensive air distended large and small bowel. Short CBC 05/03/24 05/04/24 Range/Units 16:22 03:33 WBC 19.7 H 15.5 H (4.5-10.0) K/mm3 Hgb 12.6 L 9.9 L (14.0-18.0) g/dL Hct 40.1 L 30.8 L (42.0-52.0) % Plt Count 183 181 (150-375) k/mm3 BMP 05/03/24 05/04/24 18:19 03:33 Sodium 150 H 148 H Potassium 3.5 2.4 L* Chloride 115 H 120 H Carbon Dioxide 25 19 L BUN 36 H D 32 H Creatinine 1.30 1.10 Glucose 129 H 142 H Calcium 8.4 7.2 L Cardiac Enzymes 05/03/24 Range/Units 16:22 Troponin I 0.016 (0.000-0.034) ng/mL Liver Function 05/03/24 05/04/24 Range/Units 18:19 03:33 Total Bilirubin 1.5 H 0.9 (0.2-1.3) mg/dL AST 48 29 (17-59) U/L ALT 29 17 (6-50) U/L Alkaline Phosphatase 160 H 122 (38-126) U/L Albumin 2.6 L 1.8 L (3.5-5.1) g/dL Urine 05/03/24 Range/Units 19:56 Urine Color [place] H (Yellow) Urine Appearance Turbid H (Clear) Urine pH 5.0 (5.0-9.0) Ur Specific [place] > 1.045 H (1.001-1.035) Urine Protein 2+ H (Negative) mg/dL Urine Glucose (UA) Negative (Negative) mg/dL Hospitalist MIPS Advance Care Plan I have confirmed that the patient's Advanced Care Plan is present, code status is documented, or surrogate decision maker is listed in patient medical record.: Yes Medication Reconciliation I have utilized all available resources to obtain, update and review the patients current medications (includes all prescriptions, OTC, herbals, ca nnabis, and nutritional supplements).: Yes
[2024-05-04] MEDS: POTASSIUM PHOS,M-BASIC-D-BASIC 40 MMOL in SODIUM CHLORIDE 0.9% IV 250 ML 43.89 MMOL IVPB (08:57)
[2024-05-04] MEDS: CALCIUM GLUC 2,000 MG/NS 100ML 2,000 MG/100 ML BAG 100 MG IVPB (08:57)
[2024-05-04] MEDS: SODIUM BICARBONATE 8.4% 75 MEQ in WATER, STERILE FOR INJECTION 1,000 ML 100 MEQ IV CONT (08:57)
[2024-05-04] MEDS: MINERAL OIL/WHITE PETROLATUM OINTMENT 1 APPLIC EACH EYE (09:22)
[2024-05-04 09:24] LABS: Thyroid Stimulating Hormone Reflex 0.955 uIU/mL (0.465-4.68)
--- NOTE | 2024-05-04 11:44 | PM.EVENT ---
Event Note Event Note Event Note: Family Meeting I met with patient's , daughter, son and [id number] in presence of md do resident urgent care Hilaria and patient's nurse Nadia to discuss medical decisions and goals of care. I updated them with patient's current condition including respiratory failure from PE and aspiration pneumonia, dehydration, colonic dilation, UTI, sepsis, shock and malnutrition. I also updated them with current treatment plan, expected prognosis and different potential outcomes. The family told us that patient had been dealing with dementia for almost 7-8 years and has been gradually deteriorating. Patient is mostly bedbound and only gets up to use the commode and cannot stand without help. Patient has indwelling Larkin catheter patient has not eaten by himself for more than a year and has been fed by his . Over last some time patient was being given bite size food and with fed fluid with a syringe. Family has not sought any feeding tube or placement in a facility. Patient has developed a decubitus ulcer recently. Patient only speaks few words. We discussed patient gradually deteriorating state and multiple medical problems and I explained them that most of the intervention being done are supportive and not curative. I also discussed option of palliative comfort care and explained the process. Family will discuss among themselves before making any further decisions. Total time spent 30 minutes
[2024-05-04] MEDS: LORazepam INJ (*CRX) 2 MG/ML VIAL IV PUSH (15:06)
[2024-05-04] MEDS: MORPHINE SULFATE INJ (*CRX) 10 MG/ML AMP 5 MG IV PUSH (15:07)
--- NOTE | 2024-05-04 16:51 | PM.IMPN ---
Progress Note: A&P Assessment and Plan (1) Acute respiratory failure: Code(s): J96.00 - Acute respiratory failure, unspecified whether with hypoxia or hypercapnia Status: Acute (2) Septic shock: Code(s): A41.9 - Sepsis, unspecified organism; R65.21 - Severe sepsis with septic shock Status: Acute (3) Pulmonary emboli: Code(s): I26.99 - Other pulmonary embolism without acute cor pulmonale Status: Acute (4) Pneumonia: Code(s): J18.9 - Pneumonia, unspecified organism Status: Acute (5) Protein calorie malnutrition: Code(s): E46 - Unspecified protein-calorie malnutrition Status: Acute (6) Aspiration into lower respiratory tract: Code(s): T17.800A - Unspecified foreign body in other parts of respiratory tract causing asphyxiation, initial encounter Status: Acute (7) Acute metabolic encephalopathy: Code(s): G93.41 - Metabolic encephalopathy Status: Acute (8) Acute UTI: Code(s): N39.0 - Urinary tract infection, site not specified Status: Acute (9) Dementia: Qualifiers: Dementia type: unspecified type Dementia behavioral disturbance: without behavioral disturbance Qualified Code(s): F03.90 - Unspecified dementia without behavioral disturbance Code(s): F03.90 - Unspecified dementia, unspecified severity, without behavioral disturbance, psychotic disturbance, mood disturbance, and anxiety Status: Acute (10) Metabolic acidosis: Code(s): E87.20 - Acidosis, unspecified Status: Acute (11) Esophagitis: Code(s): K20.90 - Esophagitis, unspecified without bleeding Status: Acute (12) Dehydration: Code(s): E86.0 - Dehydration Status: Acute (13) Electrolyte abnormality: Code(s): E87.8 - Other disorders of electrolyte and fluid balance, not elsewhere classified Status: Acute (14) Functional megacolon: Code(s): K59.39 - Other megacolon Status: Acute Plan This is an 89-year-old male with past medical history of dementia dysphagia brought to the ED with altered mental status And respiratory distress. Patient was saturating 70% on room air and was placed on 12 L oxygen they were able to suction and improve the saturation up to 89%. Also received albuterol neb treatment in route. Patient was intubated in the ED. laboratory evaluation showed leukocytosis of 19.7 hemoglobin of 12.6 came panel showed hypernatremia at 1:50 a.m. creatinine 1.3 lactate was 7. Troponin was 0.016 BNP 4120. Urinalysis with more than 100 WBC and more than 100 RBC influenza RSV swab was negative. Nasal MRSA was negative chest x-ray showed patchy bilateral ground-glass opacities which may represent edema or infection. Segmental left basilar atelectasis/ consolidation. CT head showed acute right sphenoid sinusitis and no acute intracranial process. Chest abdomen pelvis was done which showed bilateral upper lobe segmental and subsegmental pulmonary emboli with moderate clot burden. Bilateral upper lobe pulmonary opacities may represent pulmonary infarcts. Infection/ aspiration could appear similar. Bilateral medial and basilar consolidation probably representing a component of aspiration given the location impressions of bilateral lower lobe airway diaphoresis. Moderate esophagitis/ gastritis hepatic steatosis and diffuse large bowel dilatation likely chronic colonic ileus. Patient was admitted to the ICU. Patient was mechanically ventilated. And was started on broad-spectrum antibiotics. For pulmonary emboli he was also started on heparin drip. Echocardiogram showed normal EF and grade 1 diastolic noncompliance mild right ventricular enlargement with right ventricular hypokinesia. Tricuspid regurgitation mildly sclerotic aortic valve without stenosis. For UTI and aspiration pneumonia patient was also hypotensive and was started on vasopressor with Levophed and vasopressin. Stress dose steroid was also continued. Patient has baseline dementia further goals of care discussion was made and decision was made for withdrawal of care and implementation of comfort measures Dementia Dysphagia Colorectal cancer History of TIA Hyperlipidemia DVT prophylaxis on heparin drip Code status currently changed of to do not resuscitate Subjective Date/time seen: 05/04/24 16:51 Interval history: family had decided on transition to comfort care. Patient currently on vent. Family at bedside. Review of Systems Review of Systems: ROS unobtainable: Yes unobtainable due to mental status Exam Narrative: General: Pt is cachectic old frail male who is sedated, intubated and on mechanical ventilation Lungs/Chest: Trachea central Coarse BS B/L, No crackles or wheezing. Cardiac: RRR. Normal S1 S2. No murmurs Circulation: Bilateral dorsalis pedis are palpable Abdomen: Present bowel sounds. Cachectic. Soft. NT. ND. Extremities: Bilateral pitting edema and dry flaky skin.. Warm femoral central venous catheter : [place] in place Neurologic: Unable to assess due to sedation. Withdraws in 4 extremities to painful stimuli. PERRL Skin: Several areas of scabs on legs in various healing stages. Patient has a decubitus superficial wound with surrounding erythema Objective Data Vital Signs Vital Signs: Vital Signs - 24 hr 05/03/24 16:56 05/03/24 16:57 05/03/24 17:41 Temperature 97.1 F L Pulse Rate 105 H 106 H Respiratory Rate 13 13 Blood Pressure Pulse Oximetry Oxygen Delivery Fraction of Inspired Oxygen 05/03/24 18:56 05/03/24 17:16 05/03/24 18:31 Temperature Pulse Rate 99 105 H 104 H Respiratory Rate 17 20 Blood Pressure 84/57 L 114/78 Pulse Oximetry 93 92 93 Oxygen Delivery Mechanical Ventilation Fraction of Inspired Oxygen 60 05/03/24 19:31 05/03/24 19:36 05/03/24 20:11 Temperature Pulse Rate 106 H 105 H 93 Respiratory Rate 18 93 H Blood Pressure 92/67 L 71/38 L Pulse Oximetry 100 98 18 L Oxygen Delivery Mechanical Ventilation Fraction of Inspired Oxygen 60 05/03/24 21:33 05/03/24 21:36 05/03/24 21:38 Temperature Pulse Rate 85 91 86 Respiratory Rate 19 19 Blood Pressure 67/53 L Pulse Oximetry Oxygen Delivery Fraction of Inspired Oxygen 05/03/24 22:02 05/03/24 22:06 05/03/24 22:11 Temperature Pulse Rate 86 90 95 Respiratory Rate 18 Blood Pressure 105/71 54/44 L 63/51 L Pulse Oximetry 99 Oxygen Delivery Fraction of Inspired Oxygen 05/03/24 22:27 05/03/24 20:00 05/03/24 22:30 Temperature Pulse Rate 96 95 99 Respiratory Rate 18 18 Blood Pressure 84/59 L 69/48 L 83/57 L Pulse Oximetry 94 100 Oxygen Delivery Fraction of Inspired Oxygen 05/03/24 22:56 05/03/24 20:15 05/03/24 20:30 Temperature Pulse Rate 97 89 86 Respiratory Rate 18 16 18 Blood Pressure 88/61 L 81/44 L 77/49 L Pulse Oximetry 100 95 99 Oxygen Delivery Fraction of Inspired Oxygen 05/03/24 20:45 05/03/24 21:00 05/03/24 21:15 Temperature Pulse Rate 94 86 86 Respiratory Rate 18 18 18 Blood Pressure 97/52 L 83/53 L 74/49 L Pulse Oximetry 99 100 100 Oxygen Delivery Fraction of Inspired Oxygen 05/03/24 21:30 05/03/24 21:45 05/03/24 22:00 Temperature Pulse Rate 84 88 86 Respiratory Rate 19 18 18 Blood Pressure 67/53 L 56/45 L 55/47 L Pulse Oximetry 99 100 99 Oxygen Delivery Fraction of Inspired Oxygen 05/03/24 22:15 05/03/24 22:51 05/03/24 23:06 Temperature Pulse Rate 96 99 98 Respiratory Rate 18 Blood Pressure 73/44 L 83/57 L 83/60 L Pulse Oximetry 100 Oxygen Delivery Fraction of Inspired Oxygen 05/03/24 23:14 05/03/24 22:34 05/04/24 00:00 Temperature Pulse Rate 99 97 102 H Respiratory Rate 18 18 Blood Pressure 99/68 L 86/62 L Pulse Oximetry 100 100 98 Oxygen Delivery Mechanical Ventilation Fraction of Inspired Oxygen 60 05/04/24 00:15 05/04/24 00:00 05/04/24 00:15 Temperature Pulse Rate 100 102 H 100 Respiratory Rate 18 18 18 Blood Pressure 119/71 Pulse Oximetry 99 Oxygen Delivery Fraction of Inspired Oxygen 05/04/24 00:00 05/04/24 00:00 05/04/24 00:00 Temperature Pulse Rate 103 H 103 H Respiratory Rate 18 Blood Pressure 86/62 L Pulse Oximetry Oxygen Delivery Mechanical Ventilation Fraction of Inspired Oxygen 90 05/04/24 02:00 05/04/24 02:00 05/04/24 02:00 Temperature Pulse Rate 95 95 95 Respiratory Rate 18 18 Blood Pressure 96/65 L Pulse Oximetry Oxygen Delivery Fraction of Inspired Oxygen 05/04/24 02:00 05/04/24 00:00 05/04/24 02:30 Temperature 97.3 F L Pulse Rate 91 100 90 Respiratory Rate 18 Blood Pressure 104/67 101/69 Pulse Oximetry 98 Oxygen Delivery Fraction of Inspired Oxygen 05/04/24 02:00 05/04/24 03:15 05/04/24 03:30 Temperature Pulse Rate 91 89 89 Respiratory Rate Blood Pressure 105/70 56/44 L Pulse Oximetry Oxygen Delivery Fraction of Inspired Oxygen 05/04/24 03:35 05/04/24 03:40 05/04/24 03:45 Temperature Pulse Rate 86 89 85 Respiratory Rate Blood Pressure 45/33 L 68/53 L 126/76 Pulse Oximetry Oxygen Delivery Fraction of Inspired Oxygen 05/04/24 04:00 05/04/24 04:00 05/04/24 04:00 Temperature Pulse Rate 87 87 Respiratory Rate 18 Blood Pressure 111/71 Pulse Oximetry Oxygen Delivery Fraction of Inspired Oxygen 70 05/04/24 04:00 05/04/24 04:30 05/04/24 05:15 Temperature Pulse Rate 87 87 83 Respiratory Rate 18 Blood Pressure 107/70 112/76 Pulse Oximetry Oxygen Delivery Fraction of Inspired Oxygen 05/04/24 05:30 05/04/24 05:45 05/04/24 06:00 Temperature Pulse Rate 82 83 86 Respiratory Rate Blood Pressure 119/77 97/69 L 105/77 Pulse Oximetry Oxygen Delivery Fraction of Inspired Oxygen 05/04/24 06:15 05/04/24 04:00 05/04/24 06:00 Temperature 97.3 F L Pulse Rate 82 87 86 Respiratory Rate 18 19 Blood Pressure 101/72 111/71 105/77 Pulse Oximetry 97 96 Oxygen Delivery Fraction of Inspired Oxygen 05/04/24 06:30 05/04/24 06:00 05/04/24 06:00 Temperature Pulse Rate 82 86 86 Respiratory Rate 19 19 Blood Pressure 98/74 L Pulse Oximetry Oxygen Delivery Fraction of Inspired Oxygen 05/04/24 04:00 05/04/24 02:02 05/04/24 05:05 Temperature Pulse Rate 92 87 Respiratory Rate Blood Pressure Pulse Oximetry 98 97 Oxygen Delivery Mechanical Ventilation Mechanical Ventilation Mechanical Ventilation Fraction of Inspired Oxygen 40 90 70 05/04/24 05:44 05/04/24 06:52 05/04/24 06:30 Temperature Pulse Rate 88 82 Respiratory Rate 14 Blood Pressure 91/68 L Pulse Oximetry 97 Oxygen Delivery Mechanical Ventilation Fraction of Inspired Oxygen 50 05/04/24 04:00 05/04/24 06:00 05/04/24 08:19 Temperature Pulse Rate 86 86 82 Respiratory Rate Blood Pressure Pulse Oximetry 98 Oxygen Delivery Mechanical Ventilation Fraction of Inspired Oxygen 40 05/04/24 08:10 05/04/24 08:10 05/04/24 08:00 Temperature Pulse Rate 80 80 81 Respiratory Rate 14 Blood Pressure 86/66 L 86/66 L Pulse Oximetry Oxygen Delivery Fraction of Inspired Oxygen 05/04/24 08:00 05/04/24 09:00 05/04/24 09:15 Temperature Pulse Rate 81 78 77 Respiratory Rate 14 Blood Pressure 81/60 L 97/66 L Pulse Oximetry Oxygen Delivery Fraction of Inspired Oxygen 05/04/24 09:30 05/04/24 09:45 05/04/24 10:00 Temperature Pulse Rate 76 76 71 Respiratory Rate Blood Pressure 113/53 L 120/51 L 123/54 L Pulse Oximetry Oxygen Delivery Fraction of Inspired Oxygen 05/04/24 10:00 05/04/24 10:00 05/04/24 08:00 Temperature 97.3 F L Pulse Rate 71 71 81 Respiratory Rate 14 14 14 Blood Pressure 99/74 L Pulse Oximetry 96 Oxygen Delivery Fraction of Inspired Oxygen 05/04/24 10:00 05/04/24 11:00 05/04/24 08:00 Temperature Pulse Rate 71 71 83 Respiratory Rate 14 Blood Pressure 123/54 L 105/65 Pulse Oximetry 96 Oxygen Delivery Fraction of Inspired Oxygen 05/04/24 10:00 05/04/24 08:00 05/04/24 08:00 Temperature Pulse Rate 71 Respiratory Rate Blood Pressure Pulse Oximetry 96 Oxygen Delivery Mechanical Ventilation Fraction of Inspired Oxygen 40 40 05/04/24 11:51 05/04/24 12:00 05/04/24 12:00 Temperature Pulse Rate 72 71 71 Respiratory Rate 14 14 Blood Pressure Pulse Oximetry 96 Oxygen Delivery Mechanical Ventilation Fraction of Inspired Oxygen 40 05/04/24 12:00 05/04/24 12:00 05/04/24 12:00 Temperature Pulse Rate 71 Respiratory Rate 14 Blood Pressure 108/76 Pulse Oximetry 96 96 Oxygen Delivery Mechanical Ventilation Fraction of Inspired Oxygen 40 40 05/04/24 13:49 05/04/24 12:00 05/04/24 12:00 Temperature Pulse Rate 71 70 70 Respiratory Rate Blood Pressure 109/67 Pulse Oximetry 96 Oxygen Delivery Mechanical Ventilation Fraction of Inspired Oxygen 40 05/04/24 13:00 05/04/24 14:00 05/04/24 14:00 Temperature Pulse Rate 70 71 71 Respiratory Rate 16 Blood Pressure 108/76 104/64 Pulse Oximetry Oxygen Delivery Fraction of Inspired Oxygen 05/04/24 14:00 05/04/24 14:00 05/04/24 14:00 Temperature Pulse Rate 71 71 71 Respiratory Rate 16 16 Blood Pressure 104/64 Pulse Oximetry 96 Oxygen Delivery Fraction of Inspired Oxygen 05/04/24 15:15 05/04/24 15:15 05/04/24 15:30 Temperature Pulse Rate 74 74 71 Respiratory Rate 14 14 Blood Pressure 99/67 L Pulse Oximetry Oxygen Delivery Fraction of Inspired Oxygen 05/04/24 15:38 Temperature Pulse Rate Respiratory Rate Blood Pressure Pulse Oximetry Oxygen Delivery Room Air Fraction of Inspired Oxygen Intake/Output Intake/Output: Intake & Output 05/01/24 05/02/24 05/03/24 05/04/24 23:59 23:59 23:59 23:59 Intake Total 2890.6 2790.1 Output Total 175 Balance 2890.6 2615.1 Meds/Results Medications: Active Medications Generic Name Dose Route Start Last Admin Trade Name Freq PRN Reason Stop Dose Admin Atropine Sulfate 1 - 2 drop 05/04/24 12:19 Atropine Sulfate 1% Ophth Soln 5 Ml Bottle SUBLINGUAL Q4H PRN Secretions Lorazepam 2 mg 05/04/24 12:19 Lorazepam Inj (*Crx) 2 Mg/Ml Vial IV PUSH Q1H PRN Anxiety/Comfort Morphine Sulfate 4 mg 05/04/24 12:19 Morphine Sulfate (*Crx) 2 Mg/Ml Inj IV PUSH Q30M PRN COMFORT Radiology Results: ITS Impressions Head CT 05/03/24 19:26 IMPRESSION: No acute intracranial process. Acute right sphenoid sinusitis Chest/Abdomen/Pelvis CT 05/03/24 19:31 IMPRESSION: Bilateral upper lobe segmental and subsegmental pulmonary emboli. Moderate clot burden. RV/LV ratio 1.2. Bilateral upper lobe pulmonary opacities may represent pulmonary infarcts. Infection/aspiration could appear similarly and are not excluded. Bilateral medial and basilar consolidation probably representing a component of aspiration given the location and presence of bilateral lower lobe airway debris. Moderate esophagitis/gastritis. Hepatic steatosis. Diffuse large bowel dilation, likely chronic colonic ileus. Abdomen X-Ray 05/04/24 06:23 Impression: OG tube in satisfactory position. Extensive air distended large and small bowel. Labs Labs: Laboratory Results - last 24 hr 05/03/24 05/03/24 05/03/24 18:19 18:19 19:50 WBC RBC Hgb Hct MCV MCH MCHC RDW Plt Count MPV Immature Gran % (Auto) Neut % (Auto) Lymph % (Auto) [place] % (Auto) Eos % (Auto) Baso % (Auto) Lymph # (Auto) [place] # (Auto) Eos # (Auto) Baso # (Auto) Abs Immat Gran (auto) Absolute Neuts (auto) Absolute Nucleated RBC Total Counted Neutrophils % (Manual) Band Neutrophils % Lymphocytes % (Manual) Eosinophils % (Manual) Nucleated RBC % Abs Neuts (Manual) Abs Lymphs (Manual) Absolute Eos (Manual) Platelet Estimate Nick Cells Schistocytes PT 15.5 H INR 1.2 APTT 30.4 Puncture Site ABG pH ABG pCO2 ABG pO2 ABG PO2/FiO2 Ratio ABG HCO3 ABG O2 Saturation ABG O2 Content ABG Base Excess A-a Gradient Oxyhemoglobin Total Hemoglobin O2 Delivery Device O2 Liters/Min Minute Volume Vent Rate Vent Mode FiO2 Tidal Volume PEEP Peak Inspir Pressure Pressure Support Sodium 150 H Potassium 3.5 Chloride 115 H Carbon Dioxide 25 Anion Gap 10 BUN 36 H D Creatinine 1.30 Estim Creat Clear Calc 24 Estimated GFR 52 L Glucose 129 H POC Capillary Glucose Lactic Acid 7.0 H* Calcium 8.4 Phosphorus Magnesium Cancelled 2.7 H Total Bilirubin 1.5 H AST 48 ALT 29 Alkaline Phosphatase 160 H Total Protein 6.0 L Albumin 2.6 L TSH (Reflex) Urine Color Urine Appearance Urine pH Ur Specific [place] Urine Protein Urine Glucose (UA) Urine Ketones Ur Blood (Man) Urine Nitrate Urine Bilirubin Urine Urobilinogen Add Ur Microanalysis Leukocyte Esterase Rfl Urine RBC Urine WBC Urine WBC Clumps Ur Squamous Epith Cells Urine Bacteria Urine Casts Urine Mucus Nasal MRSA (PCR) Not detected Influenza A (RT-PCR) Negative Influenza B (RT-PCR) Negative SARS-CoV-2 RNA (RT-PCR) Negative 05/03/24 05/03/24 05/04/24 19:56 23:14 03:32 WBC RBC Hgb Hct MCV MCH MCHC RDW Plt Count MPV Immature Gran % (Auto) Neut % (Auto) Lymph % (Auto) [place] % (Auto) Eos % (Auto) Baso % (Auto) Lymph # (Auto) [place] # (Auto) Eos # (Auto) Baso # (Auto) Abs Immat Gran (auto) Absolute Neuts (auto) Absolute Nucleated RBC Total Counted Neutrophils % (Manual) Band Neutrophils % Lymphocytes % (Manual) Eosinophils % (Manual) Nucleated RBC % Abs Neuts (Manual) Abs Lymphs (Manual) Absolute Eos (Manual) Platelet Estimate Reese Cells Schistocytes PT INR APTT Puncture Site ABG pH ABG pCO2 ABG pO2 ABG PO2/FiO2 Ratio ABG HCO3 ABG O2 Saturation ABG O2 Content ABG Base Excess A-a Gradient Oxyhemoglobin Total Hemoglobin O2 Delivery Device O2 Liters/Min Minute Volume Vent Rate Vent Mode FiO2 Tidal Volume PEEP Peak Inspir Pressure Pressure Support Sodium Potassium Chloride Carbon Dioxide Anion Gap BUN Creatinine Estim Creat Clear Calc Estimated GFR Glucose POC Capillary Glucose Lactic Acid 2.7 H Calcium Phosphorus Magnesium Total Bilirubin AST ALT Alkaline Phosphatase Total Protein Albumin TSH (Reflex) 0.955 Urine Color Clinch H Urine Appearance Turbid H Urine pH 5.0 Ur Specific [place] > 1.045 H Urine Protein 2+ H Urine Glucose (UA) Negative Urine Ketones Negative Ur Blood (Man) 3+ H Urine Nitrate Positive H Urine Bilirubin 2+ H Urine Urobilinogen 1.0 Add Ur Microanalysis Reviewed Leukocyte Esterase Rfl 2+ H Urine RBC >100 H Urine WBC >100 H Urine WBC Clumps Present H Ur Squamous Epith Cells Occasional Urine Bacteria 1+ H Urine Casts >20 Urine Mucus Present Nasal MRSA (PCR) Influenza A (RT-PCR) Influenza B (RT-PCR) SARS-CoV-2 RNA (RT-PCR) 05/04/24 05/04/24 05/04/24 03:33 04:41 08:00 WBC 15.5 H RBC 2.83 L Hgb 9.9 L Hct 30.8 L MCV 108.8 H MCH 35.0 H MCHC 32.1 RDW 13.7 Plt Count 181 MPV 12.0 H Immature Gran % (Auto) Not Reportable Neut % (Auto) Not Reportable Lymph % (Auto) Not Reportable [place] % (Auto) Not Reportable Eos % (Auto) Not Reportable Baso % (Auto) Not Reportable Lymph # (Auto) Not Reportable [place] # (Auto) Not Reportable Eos # (Auto) Not Reportable Baso # (Auto) Not Reportable Abs Immat Gran (auto) Not Reportable Absolute Neuts (auto) Not Reportable Absolute Nucleated RBC Not Reportable Total Counted 100 Neutrophils % (Manual) 77 H Band Neutrophils % 16 H Lymphocytes % (Manual) 6.0 L Eosinophils % (Manual) 1 Nucleated RBC % Not Reportable Abs Neuts (Manual) 14.41 H Abs Lymphs (Manual) 0.93 L Absolute Eos (Manual) 0.15 Platelet Estimate Adequate Nick Cells 1+ Schistocytes None seen PT INR APTT > 200.0 H* Puncture Site Right radial ABG pH 7.630 H* ABG pCO2 16.2 L* ABG pO2 217.4 H ABG PO2/FiO2 Ratio 3.11 ABG HCO3 16.7 L ABG O2 Saturation 99.7 ABG O2 Content 15.8 L ABG Base Excess -2.3 A-a Gradient 264.3 Oxyhemoglobin 98.9 Total Hemoglobin 11.0 L O2 Delivery Device Ventilator O2 Liters/Min Not Reportable Minute Volume Not Reportable Vent Rate 18 Vent Mode Cmv FiO2 70 Tidal Volume 450 PEEP 5 Peak Inspir Pressure Not Reportable Pressure Support Not Reportable Sodium 148 H Potassium 2.4 L* Chloride 120 H Carbon Dioxide 19 L Anion Gap 9 BUN 32 H Creatinine 1.10 Estim Creat Clear Calc 28 Estimated GFR > 60 Glucose 142 H POC Capillary Glucose 144 H Lactic Acid Calcium 7.2 L Phosphorus 2.1 L Magnesium 2.3 Total Bilirubin 0.9 AST 29 ALT 17 Alkaline Phosphatase 122 Total Protein 5.0 L Albumin 1.8 L TSH (Reflex) Urine Color Urine Appearance Urine pH Ur Specific [place] Urine Protein Urine Glucose (UA) Urine Ketones Ur Blood (Man) Urine Nitrate Urine Bilirubin Urine Urobilinogen Add Ur Microanalysis Leukocyte Esterase Rfl Urine RBC Urine WBC Urine WBC Clumps Ur Squamous Epith Cells Urine Bacteria Urine Casts Urine Mucus Nasal MRSA (PCR) Influenza A (RT-PCR) Influenza B (RT-PCR) SARS-CoV-2 RNA (RT-PCR)
--- NOTE | 2024-05-04 18:00 | PC.NURSE ---
This patient, Regan Croft, was transferred to [[id number]] on 05/04/24 at 1800. Personal belongings sent with patient. Report given to [Sully MOJICA]. Appropriate documentation sent with patient.
--- NOTE | 2024-05-04 18:06 | PC.NURSE ---
This patient, Regan Croft, was received from ICU 6 on 05/04/24 at 1806. Patient/family oriented to unit policies and routines.
[2024-05-05 08:00] VITALS: BP 92/54; PULSE 71; RESP 14; TEMP 36.3; O2SAT 91
[2024-05-05] MEDS: ATROPINE SULFATE 1% OPHTH SOLN 5 ML BOTTLE SUBLINGUAL ×2 (08:15→15:25)
[2024-05-05] MEDS: MORPHINE SULFATE (*CRX) 2 MG/ML INJ 4 MG IV PUSH ×5 (08:16→23:14)
--- NOTE | 2024-05-05 11:57 | PCDIET ---
Diet order: NPO. Plans for comfort care. No further nutritional interventions needed.
--- NOTE | 2024-05-05 14:12 | P.PNIM_ITS ---
Progress Note: A&P Assessment and Plan (1) Acute respiratory failure: Code(s): J96.00 - Acute respiratory failure, unspecified whether with hypoxia or hypercapnia Status: Acute (2) Septic shock: Code(s): A41.9 - Sepsis, unspecified organism; R65.21 - Severe sepsis with septic shock Status: Acute (3) Pulmonary emboli: Code(s): I26.99 - Other pulmonary embolism without acute cor pulmonale Status: Acute (4) Pneumonia: Code(s): J18.9 - Pneumonia, unspecified organism Status: Acute (5) Protein calorie malnutrition: Code(s): E46 - Unspecified protein-calorie malnutrition Status: Acute (6) Aspiration into lower respiratory tract: Code(s): T17.800A - Unspecified foreign body in other parts of respiratory tract causing asphyxiation, initial encounter Status: Acute (7) Acute metabolic encephalopathy: Code(s): G93.41 - Metabolic encephalopathy Status: Acute (8) Acute UTI: Code(s): N39.0 - Urinary tract infection, site not specified Status: Acute (9) Dementia: Qualifiers: Dementia type: unspecified type Dementia behavioral disturbance: without behavioral disturbance Qualified Code(s): F03.90 - Unspecified dementia without behavioral disturbance Code(s): F03.90 - Unspecified dementia, unspecified severity, without behavioral disturbance, psychotic disturbance, mood disturbance, and anxiety Status: Acute (10) Metabolic acidosis: Code(s): E87.20 - Acidosis, unspecified Status: Acute (11) Esophagitis: Code(s): K20.90 - Esophagitis, unspecified without bleeding Status: Acute (12) Dehydration: Code(s): E86.0 - Dehydration Status: Acute (13) Electrolyte abnormality: Code(s): E87.8 - Other disorders of electrolyte and fluid balance, not elsewhere classified Status: Acute (14) Functional megacolon: Code(s): K59.39 - Other megacolon Status: Acute Plan This is an 89-year-old male with past medical history of dementia dysphagia brought to the ED with altered mental status And respiratory distress. Patient was saturating 70% on room air and was placed on 12 L oxygen they were able to suction and improve the saturation up to 89%. Also received albuterol neb treatment in route. Patient was intubated in the ED. laboratory evaluation showed leukocytosis of 19.7 hemoglobin of 12.6 came panel showed hypernatremia at 1:50 a.m. creatinine 1.3 lactate was 7. Troponin was 0.016 BNP 4120. Urinalysis with more than 100 WBC and more than 100 RBC influenza RSV swab was negative. Nasal MRSA was negative chest x-ray showed patchy bilateral ground- glass opacities which may represent edema or infection. Segmental left basilar atelectasis/ consolidation. CT head showed acute right sphenoid sinusitis and no acute intracranial process. Chest abdomen pelvis was done which showed bilateral upper lobe segmental and subsegmental pulmonary emboli with moderate clot burden. Bilateral upper lobe pulmonary opacities may represent pulmonary infarcts. Infection/ aspiration could appear similar. Bilateral medial and basilar consolidation probably representing a component of aspiration given the location impressions of bilateral lower lobe airway diaphoresis. Moderate esophagitis/ gastritis hepatic steatosis and diffuse large bowel dilatation likely chronic colonic ileus. Patient was admitted to the ICU. Patient was mechanically ventilated. And was started on broad-spectrum antibiotics. For pulmonary emboli he was also started on heparin drip. Echocardiogram showed normal EF and grade 1 diastolic noncompliance mild right ventricular enlargement with right ventricular hypokinesia. Tricuspid regurgitation mildly sclerotic aortic valve without stenosis. For UTI and aspiration pneumonia patient was also hypotensive and was started on vasopressor with Levophed and vasopressin. Stress dose steroid was also continued. Patient has baseline dementia further goals of care discussion was made and decision was made for withdrawal of care and implementation of comfort measures. Continue comfort measures. Hospice consultation Dementia Dysphagia Colorectal cancer History of TIA Hyperlipidemia DVT prophylaxis on heparin drip Code status currently changed of to do not resuscitate Subjective Date/time seen: 05/05/24 14:12 Interval history: Patient lying in bed comfortable received morphine IV earlier. Family at bedside. All Questions answered Review of Systems Review of Systems: ROS unobtainable: Yes unobtainable due to mental status Exam Narrative: General: Pt is cachectic old frail male comfortable lying in bed Lungs/Chest: Trachea central Coarse BS B/L, No crackles or wheezing. Extremities: Bilateral pitting edema and dry flaky skin. : Lark[place] in place Neurologic: Unresponsive Objective Data Vital Signs Vital Signs: Vital Signs - 24 hr 05/04/24 15:15 05/04/24 15:15 05/04/24 15:30 Temperature Pulse Rate 74 74 71 Respiratory Rate 14 14 Blood Pressure 99/67 L Pulse Oximetry Oxygen Delivery 05/04/24 15:38 05/04/24 20:00 05/05/24 08:00 Temperature 97.3 F L 97.3 F L Pulse Rate 70 71 Respiratory Rate 16 14 Blood Pressure 104/53 L 92/54 L Pulse Oximetry 90 91 Oxygen Delivery Room Air Intake/Output Intake/Output: Intake & Output 05/02/24 05/03/24 05/04/24 05/05/24 23:59 23:59 23:59 23:59 Intake Total 2890.6 2790.1 0 Output Total 325 50 Balance 2890.6 2465.1 -50 Meds/Results Medications: Active Medications Generic Name Dose Route Start Last Admin Trade Name Freq PRN Reason Stop Dose Admin Atropine Sulfate 1 - 2 drop 05/04/24 12:19 05/05/24 08:15 Atropine Sulfate 1% Ophth Soln 5 Ml Bottle SUBLINGUAL 1 drop Q4H PRN Administration Secretions Lorazepam 2 mg 05/04/24 12:19 Lorazepam Inj (*Crx) 2 Mg/Ml Vial IV PUSH Q1H PRN Anxiety/Comfort Morphine Sulfate 4 mg 05/04/24 12:19 05/05/24 08:16 Morphine Sulfate (*Crx) 2 Mg/Ml Inj IV PUSH 4 mg Q30M PRN Administration COMFORT Radiology Results: ITS Impressions Head CT 05/03/24 19:26 IMPRESSION: No acute intracranial process. Acute right sphenoid sinusitis Chest/Abdomen/Pelvis CT 05/03/24 19:31 IMPRESSION: Bilateral upper lobe segmental and subsegmental pulmonary emboli. Moderate clot burden. RV/LV ratio 1.2. Bilateral upper lobe pulmonary opacities may represent pulmonary infarcts. Infection/aspiration could appear similarly and are not excluded. Bilateral medial and basilar consolidation probably representing a component of aspiration given the location and presence of bilateral lower lobe airway debris. Moderate esophagitis/gastritis. Hepatic steatosis. Diffuse large bowel dilation, likely chronic colonic ileus. Abdomen X-Ray 05/04/24 06:23 Impression: OG tube in satisfactory position. Extensive air distended large and small bowel.
[2024-05-05 20:00] VITALS: BP 83/52; PULSE 115; RESP 14; TEMP 36.2; O2SAT 86
[2024-05-05] MEDS: SCOPOLAMINE 1 MG PATCH 1 PATCH TRANSDERM (20:00)
[2024-05-05] MEDS: LORazepam INJ (*CRX) 2 MG/ML VIAL IV PUSH ×2 (20:35→23:15)
[2024-05-06] MEDS: MORPHINE SULFATE (*CRX) 2 MG/ML INJ 4 MG IV PUSH ×4 (01:20→09:13)
[2024-05-06] MEDS: LORazepam INJ (*CRX) 2 MG/ML VIAL IV PUSH ×3 (01:20→05:54)
[2024-05-06 08:00] VITALS: BP 53/24; PULSE 96; RESP 14; TEMP 35.6; O2SAT 85
[2024-05-06] MEDS: MORPHINE 50 MG/NS 100ML (*CRX) 50 MG/100 ML BAG IV CONT (10:22)
--- NOTE | 2024-05-06 12:42 | P.PNIM_ITS ---
Progress Note: A&P Assessment and Plan (1) Acute respiratory failure: Code(s): J96.00 - Acute respiratory failure, unspecified whether with hypoxia or hypercapnia Status: Acute (2) Septic shock: Code(s): A41.9 - Sepsis, unspecified organism; R65.21 - Severe sepsis with septic shock Status: Acute (3) Pulmonary emboli: Code(s): I26.99 - Other pulmonary embolism without acute cor pulmonale Status: Acute (4) Pneumonia: Code(s): J18.9 - Pneumonia, unspecified organism Status: Acute (5) Protein calorie malnutrition: Code(s): E46 - Unspecified protein-calorie malnutrition Status: Acute (6) Aspiration into lower respiratory tract: Code(s): T17.800A - Unspecified foreign body in other parts of respiratory tract causing asphyxiation, initial encounter Status: Acute (7) Acute metabolic encephalopathy: Code(s): G93.41 - Metabolic encephalopathy Status: Acute (8) Acute UTI: Code(s): N39.0 - Urinary tract infection, site not specified Status: Acute (9) Dementia: Qualifiers: Dementia type: unspecified type Dementia behavioral disturbance: without behavioral disturbance Qualified Code(s): F03.90 - Unspecified dementia without behavioral disturbance Code(s): F03.90 - Unspecified dementia, unspecified severity, without behavioral disturbance, psychotic disturbance, mood disturbance, and anxiety Status: Acute (10) Metabolic acidosis: Code(s): E87.20 - Acidosis, unspecified Status: Acute (11) Esophagitis: Code(s): K20.90 - Esophagitis, unspecified without bleeding Status: Acute (12) Dehydration: Code(s): E86.0 - Dehydration Status: Acute (13) Electrolyte abnormality: Code(s): E87.8 - Other disorders of electrolyte and fluid balance, not elsewhere classified Status: Acute (14) Functional megacolon: Code(s): K59.39 - Other megacolon Status: Acute Plan This is an 89-year-old male with past medical history of dementia dysphagia brought to the ED with altered mental status And respiratory distress. Patient was saturating 70% on room air and was placed on 12 L oxygen they were able to suction and improve the saturation up to 89%. Also received albuterol neb treatment in route. Patient was intubated in the ED. laboratory evaluation showed leukocytosis of 19.7 hemoglobin of 12.6 came panel showed hypernatremia at 1:50 a.m. creatinine 1.3 lactate was 7. Troponin was 0.016 BNP 4120. Urinalysis with more than 100 WBC and more than 100 RBC influenza RSV swab was negative. Nasal MRSA was negative chest x-ray showed patchy bilateral ground- glass opacities which may represent edema or infection. Segmental left basilar atelectasis/ consolidation. CT head showed acute right sphenoid sinusitis and no acute intracranial process. Chest abdomen pelvis was done which showed bilateral upper lobe segmental and subsegmental pulmonary emboli with moderate clot burden. Bilateral upper lobe pulmonary opacities may represent pulmonary infarcts. Infection/ aspiration could appear similar. Bilateral medial and basilar consolidation probably representing a component of aspiration given the location impressions of bilateral lower lobe airway diaphoresis. Moderate esophagitis/ gastritis hepatic steatosis and diffuse large bowel dilatation likely chronic colonic ileus. Patient was admitted to the ICU. Patient was mechanically ventilated. And was started on broad-spectrum antibiotics. For pulmonary emboli he was also started on heparin drip. Echocardiogram showed normal EF and grade 1 diastolic noncompliance mild right ventricular enlargement with right ventricular hypokinesia. Tricuspid regurgitation mildly sclerotic aortic valve without stenosis. For UTI and aspiration pneumonia patient was also hypotensive and was started on vasopressor with Levophed and vasopressin. Stress dose steroid was also continued. Patient has baseline dementia further goals of care discussion was made and decision was made for withdrawal of care and implementation of comfort measures. Continue comfort measures. Hospice consultation Dementia Dysphagia Colorectal cancer History of TIA Hyperlipidemia DVT prophylaxis on heparin drip Code status currently changed of to do not resuscitate 05/06 -- Patient was mildlt restless and had just received Morphine at the tme of my visit. He was getting morphine multiple times overnight. Discussed with family and they wished for him to be comfortable. They were agreeable for a morphine drip which was ordered. Monitor. Hospice consulted. Subjective Date/time seen: 05/06/24 12:42 Interval history: 89yo male with dementia here for dysphagia. Assuming care. Chart reviewed. Patietn unable to provide hx. Family in the romm. Review of Systems Review of Systems: ROS unobtainable: Yes unobtainable due to mental status Exam Narrative: AF 96.1 96 14 85% ra Gen - thin, ill appearing male who was mildly restless Chest - coarse CV - S1/S2 Abd - Soft - Larkin secured Ext - RLE edema Neuro - unresponsive Skin - dried, flake skin bilateral LE. Objective Data Vital Signs Vital Signs: Vital Signs - 24 hr 05/05/24 20:00 05/05/24 20:00 05/06/24 08:00 Temperature 97.1 F L 96.1 F L Pulse Rate 115 H 96 Respiratory Rate 14 14 Blood Pressure 83/52 L 53/24 L Pulse Oximetry 86 L 85 L Oxygen Delivery Room Air 05/06/24 09:50 Temperature Pulse Rate Respiratory Rate Blood Pressure Pulse Oximetry Oxygen Delivery Room Air Intake/Output Intake/Output: Intake & Output 05/03/24 05/04/24 05/05/24 05/06/24 23:59 23:59 23:59 23:59 Intake Total 2890.6 2790.1 0 0 Output Total 325 250 150 Balance 2890.6 2465.1 -250 -150 Meds/Results Medications: Active Medications Generic Name Dose Route Start Last Admin Trade Name Freq PRN Reason Stop Dose Admin Atropine Sulfate 1 - 2 drop 05/04/24 12:19 05/05/24 15:25 Atropine Sulfate 1% Ophth Soln 5 Ml Bottle SUBLINGUAL 1 drop Q4H PRN Administration Secretions Morphine Sulfate 50 mg in 100 mls @ 4 mls/hr 05/06/24 09:25 05/06/24 10:22 IV CONT 2 mg/hr .Q24H MARILYNN 4 mls/hr Administration 2 MG/HR Lorazepam 2 mg 05/04/24 12:19 05/06/24 05:54 Lorazepam Inj (*Crx) 2 Mg/Ml Vial IV PUSH 2 mg Q1H PRN Administration Anxiety/Comfort Morphine Sulfate 4 mg 05/04/24 12:19 05/06/24 09:13 Morphine Sulfate (*Crx) 2 Mg/Ml Inj IV PUSH 4 mg Q30M PRN Administration COMFORT Scopolamine 1 patch 05/05/24 19:40 05/05/24 20:00 Scopolamine 1 Mg Patch TRANSDERM 1 patch Q72HR MARILYNN Administration Radiology Results: ITS Impressions Head CT 05/03/24 19:26 IMPRESSION: No acute intracranial process. Acute right sphenoid sinusitis Chest/Abdomen/Pelvis CT 05/03/24 19:31 IMPRESSION: Bilateral upper lobe segmental and subsegmental pulmonary emboli. Moderate clot burden. RV/LV ratio 1.2. Bilateral upper lobe pulmonary opacities may represent pulmonary infarcts. Infection/aspiration could appear similarly and are not excluded. Bilateral medial and basilar consolidation probably representing a component of aspiration given the location and presence of bilateral lower lobe airway debris. Moderate esophagitis/gastritis. Hepatic steatosis. Diffuse large bowel dilation, likely chronic colonic ileus. Abdomen X-Ray 05/04/24 06:23 Impression: OG tube in satisfactory position. Extensive air distended large and small bowel.
[2024-05-06 20:00] VITALS: BP 59/41; PULSE 102; RESP 14; TEMP 36.4; O2SAT 80
--- NOTE | 2024-05-07 03:41 | PC.NURSE ---
Addendum entered by Martine Jain RN 05/07/24 03:48: 05/07/24 0115 Original Note: Called to bedside by family. Found patient to have no pulse or respirations. Called charge nurse to bedside to verify expiration.
--- NOTE | 2024-05-08 06:56 | PM.DDS ---
Discharge Summary Date and Time Date of : 05/07/24 Time of : 01:15 Provider Pronounced By: 2 RNs Name of First RN That Pronounced: Martine Jain Name of Second RN That Pronounced: Sandra Silverio Probable Cause of Probable Cause of : Respiratory failure Summary Hospital Course: Patient with hx of dementia and dysphagia who was brought to the ED with altered mental status and respiratory distress. Patient was intubated in the ED. CXR showed patchy bilateral ground-glass opacities and segmental left basilar atelectasis/ consolidation. CT Ch/Abd/Pelvis showed bilateral upper lobe segmental and subsegmental pulmonary emboli with moderate clot burden with possible pulmonary infarcts. Patient was started on broad-spectrum antibiotics and heparin drip and admitted to the ICU. UA also concerning for UTI. He also had septic shock and was started on Levophed, vasopressin and stress dose steroid. Family was aware of the critical nature of the patient's condition. They met among themselves and decided to proceed with palliative extubation and comfort care. Patient was extubated and made comfortable. He passed on 05/07/24. Additional Data Confirmation of as documented by pronouncing clinician: Pupillary Reflex, Palpable Pulses, Response to Stimuli, Heart Tones and Breath Sounds Name of Provider Notified: Dr. Knight Time Provider Notified: 02:15 Provider Requests Autopsy: No Family Requests Autopsy: No Distribution System Operator Notified: Yes Date [facility] Notified of : 05/07/24 Time [facility] Notified of : 01:39
== END 2024-05-07 01:15 | disposition expired | DRG 871 ==
LOC: ANHED 18:36 → ANHICU 21:49 → ANH3MED 05-04 18:08
PROVIDERS: Internal Medicine; Admitting Provider Internal Medicine; Emergency Provider General Practice; PCP Emergency Medicine; Visit Provider Internal Medicine
DX: A41.9 Sepsis, unspecified organism (principal); I26.94 Multiple subsegmental thrombotic pulmonary emboli without acute cor pulmonale; R65.21 Severe sepsis with septic shock; J96.00 Acute respiratory failure, unspecified whether with hypoxia or hypercapnia; J69.0 Pneumonitis due to inhalation of food and vomit; J18.9 Pneumonia, unspecified organism; N39.0 Urinary tract infection, site not specified; K56.7 Ileus, unspecified; E46 Unspecified protein-calorie malnutrition; Z68.1 Body mass index [BMI] 19.9 or less, adult; E87.20 Acidosis, unspecified; K59.39 Other megacolon; R13.10 Dysphagia, unspecified; E78.5 Hyperlipidemia, unspecified; E55.9 Vitamin D deficiency, unspecified; E86.0 Dehydration; F02.80 Dementia in other diseases classified elsewhere, unspecified severity, without behavioral disturbance, psychotic disturbance, mood disturbance, and anxiety; G30.1 Alzheimer's disease with late onset; Z66 Do not resuscitate; Z85.038 Personal history of other malignant neoplasm of large intestine; Z86.73 Personal history of transient ischemic attack (TIA), and cerebral infarction without residual deficits
CPT/HCPCS: 31500; 36415; 36556; 36600; 70450; 71045; 71260; 74177; 80053; 81001; 82375; 82805; 82948; 83050; 83605; 83735; 83880; 84100; 84443; 84484; 85018; 85025; 85610; 85730; 87040; 87086; 87186; 87636; 87641; 93005; 93306; 94002; 94003; 96361; 96365; 96366; 96367; 96368; 99291; A9270; C1751; J0330; J0456; J0613; J0696; J1644; J2060; J2250; J2270; J2470; J2543; J3010; J3370; J3480; J7030; J7040; J7050; P9047; Q9967